=== PATIENT | female | born 1965 | race Caucasian/White ===

== ENCOUNTER 2016-10-01 16:19 | Observation (INO) ==
--- NOTE | 2016-10-01 17:04 | Emergency Department Note ---
Disposition Clinical Impression: Abnormal CT lung screening Disposition: Admitted As Inpatient URI/Sore Throat HPI - General Stated Complaint: possible TB Time Seen by Provider: 10/01/16 16:31 Source: patient Limitations: no limitations Nursing Notes Reviewed: Yes Vital Signs Reviewed: Yes - History of Present Illness HPI Narrative: He is a 51-year-old female with a history of pulmonary nodules is here for an abnormal CT scan. 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 She states she has been tested in the past had a positive PPD but had a negative chest x-ray. He denies any recent travel out of the country or exposure to any persons known with tuberculosis. She is in her baseline state of health and has no acute complaints Associated symptoms: Reports: denies other symptoms Treatments prior to arrival: none - Related Data Home Medications Medication Instructions Recorded Confirmed Aclidinium [place] [[place]orza 400 mcg IH 10/13/15 Pressair] Albuterol Sulfate [Albuterol 8.5 gm IH 10/13/15 Inhaler] Albuterol Sulfate [Ventolin Hfa] 10/13/15 Amlodipine [Norvasc] 10/13/15 Cyclobenzaprine [Flexeril] 10/13/15 Dicyclomine [Bentyl] 10/13/15 Divalproex (24 HR) [Depakote ER 10/13/15 (24 HR)] Fluticasone Propionate [Flovent 10/13/15 Diskus] Folic Acid [Folic Acid] 10/13/15 Gabapentin [Gralise] 10/13/15 Hydroxychloroquine [Plaquenuil] 10/13/15 LORazepam [Ativan] 10/13/15 Lisinopril [Zestril] 10/13/15 Loratadine [Claritin] 10/13/15 Methotrexate [Otrexup] 10/13/15 Mometasone/Formoterol [Dulera 200 13 gm IH 10/13/15 Mcg/5 Mcg Inhaler] Nicotine Patch [Nicoderm] 10/13/15 Omeprazole [PriLOSEC] 10/13/15 Previous Rx's Medication Instructions Recorded PredniSONE 20 mg PO DAILY #3 tablet 07/01/15 Meloxicam [Mobic] 15 mg PO DAILY #20 tab 06/25/16 Allergies Allergy/AdvReac Type Severity Reaction Status Date / Time No Known Allergies Allergy Verified 07/25/15 16:33 All systems ED: reviewed and negative except as stated. Constitutional: Denies: fever, chills, weakness, weight change, night sweats Cardiovascular: Denies: chest pain, palpitations URI PMH - Past Medical History Medical history: Reports: asthma, COPD, hypertension, RA, renal disease Psychiatric history: Reports: anxiety - Social History Smoking Status: Current every day smoker Alcohol use: Reports: none Drug use: Reports: none Physical Exam - General Limitations: no limitations General appearance: alert - Head Head exam: atraumatic, normocephalic, normal inspection - Eye Eye exam: Present: normal appearance, PERRL, EOMI - Expanded Eye Exam Pupils: Left: reactive - ENT ENT exam: normal exam, normal oropharynx, mucous membranes moist - Expanded ENT Exam External ear exam: Present: normal external inspection Mouth exam: Present: normal external inspection Teeth exam: Present: normal inspection Throat exam: Present: normal inspection - Neck Neck exam: Present: normal inspection, full ROM, trachea midline - Chest Chest inspection: Present: normal inspection, symmetric chest wall rise - Respiratory Respiratory exam: Present: prolonged expiratory phase. Absent: respiratory distress, wheezes, accessory muscle use - Cardiovascular Cardiovascular exam: Present: regular rate, normal rhythm, normal heart sounds - Abdominal Exam Abdominal exam: Present: soft, Non-Tender. Absent: tenderness, distention, guarding, rebound, rigidity - Extremities Exam Extremities exam: Present: normal inspection, full ROM. Absent: tenderness, pedal edema - Expanded Upper Extremity Exam Shoulder exam: Present: normal inspection, full ROM Arm exam: Present: normal inspection, full ROM Elbow exam: Present: normal inspection, full ROM Forearm/Wrist exam: Present: normal inspection, full ROM Hand exam: Present: normal inspection, full ROM Vascular exam: Normal: capillary refill, radial pulse - Expanded Lower Extremity Exam Hip/Pelvis exam: Present: normal inspection, full ROM Upper leg exam: Present: normal inspection, full ROM Knee exam: Present: normal inspection, full ROM Lower leg exam: Present: normal inspection, full ROM Ankle exam: Present: normal inspection, full ROM Foot/toe exam: Present: normal inspection, full ROM Neurovascular/Tendon exam: Absent: motor deficit, sensory deficit, tendon deficit - Back Exam Back exam: Present: normal inspection, full ROM. Absent: tenderness - Neurological Exam Neurological exam: Present: alert, oriented X3 - Expanded Neurological Exam Patient oriented to: Present: person, place, time Coma Scale Eye Opening: Spontaneous Coma Scale Motor Response: Obeys Commands Coma Scale Verbal Response: Oriented Coma Scale Total: 15 - Psychiatric Psychiatric exam: Present: normal affect, normal mood - Skin Skin exam: Present: warm, dry, intact, normal color Course Vital Signs Temperature 98.0 F 10/01/16 16:39 Pulse Rate 90 10/01/16 16:39 Respiratory Rate 18 10/01/16 16:39 Blood Pressure 104/69 10/01/16 16:39 O2 Sat by Pulse Oximetry 98 10/01/16 16:39 Temperature 98.0 F 10/01/16 16:39 Pulse Rate 90 10/01/16 16:39 Respiratory Rate 18 10/01/16 16:39 Blood Pressure 104/69 10/01/16 16:39 O2 Sat by Pulse Oximetry 98 10/01/16 16:39 Oxygen Delivery Oxygen Delivery Room Air Upper Respiratory Infection - Differential Diagnosis Differential Diagnosis: Likely: upper respiratory infection, otitis media, sinusitis, other viral infection, pharyngitis - Medical Records Medical records reviewed: Yes I reviewed the patient's medical records. - Lab Data Lab results reviewed: Yes I reviewed the patient's lab results. Result diagrams: 10/01/16 17:18 10/01/16 17:18 Lab Results 10/01/16 10/01/16 10/01/16 Range/Units 17:18 17:18 17:18 WBC 4.2 L (4.3-11.1) K/mcL RBC 3.57 L (3.82-4.97) M/mcL Hgb 10.3 L (11.5-15.4) g/dL Hct 31.9 L (35.3-44.9) % MCV 89.4 (83.0-100.0) fL MCH 28.9 (28.0-33.3) pg MCHC 32.3 (31.6-35.5) g/dL RDW 16.2 H (11.5-14.5) % Plt Count 303 (140-400) K/mcL MPV 8.4 L (9.4-12.4) fL Immature Gran % 1.0 (0-4) % Seg Neutrophils % 69.5 % Lymphocytes % 21.6 % Monocytes % 6.7 % Eosinophils % 1.0 % Basophils % 0.2 % Neutrophils # 2.9 (1.6-8.9) K/mcL Lymphocytes # 0.9 (0.6-4.6) K/mcL Monocytes # 0.3 (0.0-1.3) K/mcL Eosinophils # 0.0 (0.0-0.6) K/mcL Basophils # 0.0 (0.0-0.2) K/mcL PT 12.2 H (9.4-12.1) Seconds INR 1.1 APTT 30.5 (26.0-36.0) Seconds Sodium 131 L (136-145) mEq/L Potassium 4.4 (3.5-4.5) mEq/L Chloride 95 L (98-109) mEq/L Carbon Dioxide 27 (19-29) mEq/L BUN 8 (7-20) mg/dL Creatinine 1.13 H (0.57-1.11) mg/dL Est GFR ( Amer) > 60 (> 60) Est GFR (Non-Af Amer) 50 L (> 60) BUN/Creatinine Ratio 7 (6-26) Glucose 89 (70-99) mg/dL Calculated Osmolality 270 L (280-300) Lactic Acid (0.5-2.2) mmol/L Calcium 8.9 (8.6-10.8) mg/dL Phosphorus 4.2 (2.3-4.7) mg/dL Magnesium 1.9 (1.6-2.6) mg/dL Total Bilirubin 0.3 (0.2-1.2) mg/dL Direct Bilirubin 0.1 (0.0-0.5) mg/dL Indirect Bilirubin 0.2 (0.0-1.2) mg/dL AST 15 (5-34) Units/L ALT 9 (0-55) Units/L Alkaline Phosphatase 68 (38-126) Units/L Serum Total Protein 6.9 (6.0-8.3) g/dL Albumin 2.9 L (3.5-5.0) g/dL Globulin 4.0 H (2.4-3.5) g/dL Albumin/Globulin Ratio 0.7 L (1.1-2.2) 10/01/16 Range/Units 17:18 WBC (4.3-11.1) K/mcL RBC (3.82-4.97) M/mcL Hgb (11.5-15.4) g/dL Hct (35.3-44.9) % MCV (83.0-100.0) fL MCH (28.0-33.3) pg MCHC (31.6-35.5) g/dL RDW (11.5-14.5) % Plt Count (140-400) K/mcL MPV (9.4-12.4) fL Immature Gran % (0-4) % Seg Neutrophils % % Lymphocytes % % Monocytes % % Eosinophils % % Basophils % % Neutrophils # (1.6-8.9) K/mcL Lymphocytes # (0.6-4.6) K/mcL Monocytes # (0.0-1.3) K/mcL Eosinophils # (0.0-0.6) K/mcL Basophils # (0.0-0.2) K/mcL PT (9.4-12.1) Seconds INR APTT (26.0-36.0) Seconds Sodium (136-145) mEq/L Potassium (3.5-4.5) mEq/L Chloride (98-109) mEq/L Carbon Dioxide (19-29) mEq/L BUN (7-20) mg/dL Creatinine (0.57-1.11) mg/dL Est GFR ( Amer) (> 60) Est GFR (Non-Af Amer) (> 60) BUN/Creatinine Ratio (6-26) Glucose (70-99) mg/dL Calculated Osmolality (280-300) Lactic Acid 1.1 (0.5-2.2) mmol/L Calcium (8.6-10.8) mg/dL Phosphorus (2.3-4.7) mg/dL Magnesium (1.6-2.6) mg/dL Total Bilirubin (0.2-1.2) mg/dL Direct Bilirubin (0.0-0.5) mg/dL Indirect Bilirubin (0.0-1.2) mg/dL AST (5-34) Units/L ALT (0-55) Units/L Alkaline Phosphatase (38-126) Units/L Serum Total Protein (6.0-8.3) g/dL Albumin (3.5-5.0) g/dL Globulin (2.4-3.5) g/dL Albumin/Globulin Ratio (1.1-2.2) - Radiology Data Radiology results reviewed: Yes I reviewed the patient's radiology results.
[2016-10-01 17:30] LABS: Basophils % 0.2 %; Hematocrit 31.9 % (35.3-44.9); Hemoglobin 10.3 g/dL (11.5-15.4); Lymphocytes # 0.9 K/mcL (0.6-4.6); Lymphocytes % 21.6 %; Mean Corpuscular HGB Conc 32.3 g/dL (31.6-35.5); Mean Corpuscular Hemoglobin 28.9 pg (28.0-33.3); Mean Corpuscular Volume 89.4 fL (83.0-100.0); Mean Platelet Volume 8.4 fL (9.4-12.4); Monocytes # 0.3 K/mcL (0.0-1.3); Monocytes % 6.7 %; Neutrophils # 2.9 K/mcL (1.6-8.9); Platelet Count 303 K/mcL (140-400); Red Blood Count 3.57 M/mcL (3.82-4.97); Red Cell Distribution Width 16.2 % (11.5-14.5); Segmented Neutrophils % 69.5 %
[2016-10-01 17:36] LABS: INR 1.1; Prothrombin Time 12.2 Seconds (9.4-12.1)
[2016-10-01 17:38] LABS: Activated Partial Thrombo Time 30.5 Seconds (26.0-36.0)
[2016-10-01 17:45] LABS: Alanine Aminotransferase 9 Units/L (0-55); Albumin 2.9 g/dL (3.5-5.0); Albumin/Globulin Ratio 0.7 (1.1-2.2); Alkaline Phosphatase 68 Units/L (38-126); Aspartate Amino Transferase 15 Units/L (5-34); BUN/Creatinine Ratio 7 (6-26); Bilirubin,Direct 0.1 mg/dL (0.0-0.5); Bilirubin,Indirect 0.2 mg/dL (0.0-1.2); Bilirubin,Total 0.3 mg/dL (0.2-1.2); Blood Urea Nitrogen 8 mg/dL (7-20); Calcium 8.9 mg/dL (8.6-10.8); Carbon Dioxide 27 mEq/L (19-29); Chloride 95 mEq/L (98-109); Glucose 89 mg/dL (70-99); Magnesium 1.9 mg/dL (1.6-2.6); Osmolality,Calculated 270 (280-300); Phosphorous 4.2 mg/dL (2.3-4.7); Potassium 4.4 mEq/L (3.5-4.5); Sodium 131 mEq/L (136-145); Total Protein 6.9 g/dL (6.0-8.3); eGFR For African Americans > 60 (> 60); eGFR For Non-African Americans 50 (> 60)
[2016-10-01 18:49] LABS: Adenovirus Not Detected (Not Detect); Coronavirus 229E Not Detected (Not Detect); Coronavirus HKU1 Not Detected (Not Detect); Coronavirus NL63 Not Detected (Not Detect)
[2016-10-01 18:50] LABS: Bordetella Pertussis Not Detected (Not Detect); Chlamydophila pneumoniae Not Detected (Not Detect); Coronavirus OC43 ***DETECTED*** (Not Detect); Human Metapneumovirus Not Detected (Not Detect); Human Rhinovirus/Enterovirus Not Detected (Not Detect); Influenza A Subtype 2009 H1 Not Detected (Not Detect); Influenza A Untypeable Not Detected (Not Detect); Influenza B Not Detected (Not Detect); Mycoplasma pneumoniae Not Detected (Not Detect); Parainfluenza Virus 1 Not Detected (Not Detect); Parainfluenza Virus 2 Not Detected (Not Detect); Parainfluenza Virus 3 Not Detected (Not Detect); Parainfluenza Virus 4 Not Detected (Not Detect); Respiratory Syncytial Virus Not Detected (Not Detect)
--- NOTE | 2016-10-02 01:02 | Internal Med History&Physical ---
Date of Encounter: 10/02/16 Time of Encounter: 00:59 Assessment and Plan (1) COPD (chronic obstructive pulmonary disease) Current visit: Yes Status: Acute Stable no active wheezing. Qualifiers: Qualified Code(s): J44.9 - Chronic obstructive pulmonary disease, unspecified (2) Rheumatoid arthritis Current visit: Yes Status: Acute I will hold immunosuppressive medication except for steroids to avoid risk of adrenal insufficiency especially given low suspicion for miliary TB Qualifiers: Qualified Code(s): M06.9 - Rheumatoid arthritis, unspecified (3) Abnormal CT lung screening Current visit: Yes Status: Acute 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. However there is little suspicion for that. Patient is not ill appearing. Patient shows no symptoms or signs of TB. We will check quanteferon gold. Check sputum for Smear and culture checks 3 sputum samples. She would have bronchoscopy in the morning. will be kept NPO after midnight. Internal Medicine - H&P: HPI Chief complaint: abnormal CT findings History of present illness: Ms. Garcia is a 51 year old female on immunosuppressive medications including methotrexate plaque [place] and prednisone 5 mg daily for rheumatoid arthritis, history of COPD was sent or emergency room after outpatient CT scan showed concern for miliary TB. Patient is being admitted to hospital for bronchoscopy and deep cultures in the morning. Patient denies any fevers or chills. No increase in her baseline sputum production. No weight loss. No night sweats. No hemoptysis. Appetite is good. No exposure to people with suspected TB. She did have a positive to between test long time ago however an x-ray then showed no lung disease. Patient so smokes about 6 cigarettes a day. Past Med Surg Social Fam HX - Past Medical History Medical history: asthma, COPD, hypertension, RA, renal disease Psychiatric history: anxiety - Social History Smoking Status: Current every day smoker Packs per day: 1/2 Smokeless Tobacco Status: No Alcohol use: none Drug use: none - Family History Mother Hx Family Respiratory Disorders: Yes (bronchial mass collapsed lung) Hx Family GI Disorders: Yes (ulcers) Father Hx Family Endocrine Disorder: Yes (Diabetes) Hx Family Neurologic Disorders: Yes (parkinson's disease) Hx Family Medical Disorders: (htn, TIA, Pacemaker) Internal Medicine - H&P: Meds Albuterol Sulfate [Ventolin Hfa] 2 puff IH Q4H PRN 10/13/15 [History] Amlodipine [Norvasc] 5 mg PO DAILY 10/13/15 [History] Cyclobenzaprine [Flexeril] 10 mg PO BID 10/13/15 [History] Dicyclomine [Bentyl] 10 mg PO TID 10/13/15 [History] Divalproex (24 HR) [Depakote ER (24 HR)] 750 mg PO HS 10/13/15 [History] Folic Acid [Folic Acid] 5 mg PO DAILY 10/13/15 [History] Hydroxychloroquine [Plaquenuil] 300 mg PO DAILY 10/13/15 [History] LORazepam [Ativan] 0.5 mg PO BID 10/13/15 [History] Lisinopril [Zestril] 10 mg PO DAILY 10/13/15 [History] Loratadine [Claritin] 10 mg PO DAILY 10/13/15 [History] Methotrexate [Otrexup] 12.5 mg PO QWEEK 10/13/15 [History] Nicotine Patch [Nicoderm] 7 mg TD DAILY 10/13/15 [History] Omeprazole [PriLOSEC] 20 mg PO DAILY 10/13/15 [History] Albuterol Neb [AccuNeb] 0.63 mg IH QID 10/01/16 [History] Ferrous Sulfate 325 mg PO DAILY 10/01/16 [History] Fluticasone Propionate Nasal [Flonase] 50 mcg NS DAILY 10/01/16 [History] Gabapentin [Neurontin] 800 mg PO TID 10/01/16 [History] Oxygen 2 l NS HS 10/01/16 [History] PredniSONE 5 mg PO DAILY 10/01/16 [History] Propylene Glycol/Peg 400 [Systane 0.3-0.4% Eye Drops] 2 drop OP PRN PRN [History] Quetiapine Fumarate [Seroquel] 50 mg PO HS 10/01/16 [History] Umeclidinium Brm/Vilanterol Tr [Anoro Ellipta 62.5-25 Mcg INH] 1 each IH DAILY 10/01/16 [History] Allergies No Known Allergies Allergy (Verified 07/25/15 16:33) All Systems PM: A 10-system review of systems was performed and is negative for pertinent findings except as documented above in the HPI. Review of systems: 10 point ROS is negative etc. HPI. - Constitutional Vitals: Temp Pulse Resp BP Pulse Ox 98.0 F 77 14 122/78 98 10/01/16 22:06 10/01/16 22:06 10/01/16 22:06 10/01/16 22:06 10/01/16 22:06 Exam: Gen.: patient is alert and oriented times 3 not distress Cardiac: normal S1 S2 no additional sound or murmur chest: Clear to auscultation abdomen: soft non tender non distended extremity: no swelling Neuro: No neuro deficit Internal Med - H&P Results - Labs CBC & Chem 7: 10/01/16 17:18 10/01/16 17:18
[2016-10-02] MEDS ORDERED: 0.9 % Sodium Chloride 1,000 ML IVC SCH (01:15)
[2016-10-02 05:14] LABS: BUN/Creatinine Ratio 8 (6-26); Blood Urea Nitrogen 7 mg/dL (7-20); C-Reactive Protein 41 mg/L (Less than 5); Calcium 8.6 mg/dL (8.6-10.8); Carbon Dioxide 27 mEq/L (19-29); Chloride 97 mEq/L (98-109); Glucose 86 mg/dL (70-99); Osmolality,Calculated 273 (280-300); Potassium 4.1 mEq/L (3.5-4.5); Sodium 133 mEq/L (136-145); eGFR For African Americans > 60 (> 60); eGFR For Non-African Americans > 60 (> 60)
[2016-10-02] MEDS: Albuterol Neb 0.63 MG/3 ML VIAL IH SCH ×5 (05:57→22:46)
[2016-10-02] MEDS: Folic Acid 1 MG TABLET PO SCH (08:45)
[2016-10-02] MEDS: Fluticasone Propionate Nasal 50 MCG/SPRAY BOTTLE NS SCH (08:46)
[2016-10-02] MEDS: *HR* LORazepam 0.5 MG TABLET PO SCH ×2 (08:46→20:53)
[2016-10-02] MEDS: amLODIPine 5 MG TABLET PO SCH (08:46)
[2016-10-02] MEDS: predniSONE 5 MG TABLET PO SCH (08:46)
--- NOTE | 2016-10-02 08:51 | Pulmonology Consult Note ---
Date of Encounter: 10/02/16 Time of Encounter: 08:50 Assessment and Plan (1) Pulmonary cavitary lesion Current Visit: Yes Status: Acute Suspect this is related to underlying rheumatoid arthritis and all findings that have been demonstrated on CT scan are compatible with underlying diagnosis of rheumatoid arthritis including nodular bronchiolitis and cavitary lesions possibly complicated by CVID. With that stated patient is at high risk for either superimposed infection or chronic infection including fungal atypical mycobacterium typical mycobacterium cryptococcus etc. cannot fully exclude the possibility of Mycobacterium tuberculosis at this time although I feel this as very low probability. ANCA vasculitis also consideration but again less likely Plan for bronchoscopy today is his diagnostic bronchoscopy with bronchoalveolar lavage and brushings. I have sent some basic serologies including fungal and medial complement fixation levels beta galactomannan, histo antigen and HIV ANCA complement levels HIV and cryptococcal antigen Okay to remain in isolation until results of bronchoscopy including AFB are back A bronchoscopy is recommended. The procedure , risks, benefits, complications, and expected outcomes have been reviewed. Benefits of diagnosis, as well as risks to include bleeding, infection, pneumothorax which may require surgical intervention, and in a small population. The patient is aware that sometimes test is nondiagnostic. Discussed with patient and agrees to proceed. (2) COPD (chronic obstructive pulmonary disease) Current Visit: Yes Status: Acute Chronic COPD without acute exacerbation respiratory infectious panel was positive for coronavirus does not appear that she has an acute exacerbation however perhaps she is recovering from this. I would continue her metered-dose inhalers and bronchodilators as needed Encouraged tobacco cessation completely Qualifiers: Qualified Code(s): J44.9 - Chronic obstructive pulmonary disease, unspecified (3) Rheumatoid arthritis Current Visit: Yes Status: Acute She is switching rheumatologists to Dr. Chioma hopkins at [facility] and continue immunosuppression follow-up as outpatient Qualifiers: Qualified Code(s): M06.9 - Rheumatoid arthritis, unspecified History of Present Illness Consult date: 10/02/16 Requesting physician: Jory Rosales Reason for consult: abnormal CXR/CT Chief complaint: Cough History of present illness: This is a very pleasant 51-year-old woman who presented from home after she was told by her primary clinic office coordinator to go to emergency department for evaluation after she was found to have abnormalities on a routine outpatient CT scan of her thorax as part of ongoing evaluation. She has a history of advanced rheumatoid arthritis being treated with methotrexate, Plaquenil, and chronic low dose prednisone. The patient reports that she is at her baseline level of health she has a chronic productive cough that is related to tobacco use/COPD but denies any sort of fevers chills hemoptysis weight loss joint pains or outside of her usual new rash she is not traveled recently has not had any sick contacts. 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 She does have a history of an abnormal PPD in the past that did not have follow- up except for a chest x-ray she has never been incarcerated or been around people with active tuberculosis She is a current every day smoker of approximately 6 cigarettes has a history of underlying chronic obstructive pulmonary disease on inhaler therapy she started smoking in her early teens. Her CT scan is notable for bilateral Small cavitary lesions primarily in the upper lobes bilaterally she also has extensive pulmonary nodules and a central distribution throughout the lung no significant lymphadenopathy was appreciated. Past Med Surg Social Fam HX - Past Medical History Medical history: asthma, COPD, hypertension, RA, renal disease Psychiatric history: anxiety - Social History Smoking Status: Current every day smoker Packs per day: 1/2 Smokeless Tobacco Status: No Alcohol use: none Drug use: none - Family History Mother Hx Family Respiratory Disorders: Yes (bronchial mass collapsed lung) Hx Family GI Disorders: Yes (ulcers) Father Hx Family Endocrine Disorder: Yes (Diabetes) Hx Family Neurologic Disorders: Yes (parkinson's disease) Hx Family Medical Disorders: (htn, TIA, Pacemaker) Medications and Allergies Albuterol Sulfate [Ventolin Hfa] 2 puff IH Q4H PRN 10/13/15 [History] Amlodipine [Norvasc] 5 mg PO DAILY 10/13/15 [History] Cyclobenzaprine [Flexeril] 10 mg PO BID 10/13/15 [History] Dicyclomine [Bentyl] 10 mg PO TID 10/13/15 [History] Divalproex (24 HR) [Depakote ER (24 HR)] 750 mg PO HS 10/13/15 [History] Folic Acid [Folic Acid] 5 mg PO DAILY 10/13/15 [History] Hydroxychloroquine [Plaquenuil] 300 mg PO DAILY 10/13/15 [History] LORazepam [Ativan] 0.5 mg PO BID 10/13/15 [History] Lisinopril [Zestril] 10 mg PO DAILY 10/13/15 [History] Loratadine [Claritin] 10 mg PO DAILY 10/13/15 [History] Methotrexate [Otrexup] 12.5 mg PO QWEEK 10/13/15 [History] Nicotine Patch [Nicoderm] 7 mg TD DAILY 10/13/15 [History] Omeprazole [PriLOSEC] 20 mg PO DAILY 10/13/15 [History] Albuterol Neb [AccuNeb] 0.63 mg IH QID 10/01/16 [History] Ferrous Sulfate 325 mg PO DAILY 10/01/16 [History] Fluticasone Propionate Nasal [Flonase] 50 mcg NS DAILY 10/01/16 [History] Gabapentin [Neurontin] 800 mg PO TID 10/01/16 [History] Oxygen 2 l NS HS 10/01/16 [History] PredniSONE 5 mg PO DAILY 10/01/16 [History] Propylene Glycol/Peg 400 [Systane 0.3-0.4% Eye Drops] 2 drop OP PRN PRN [History] Quetiapine Fumarate [Seroquel] 50 mg PO HS 10/01/16 [History] Umeclidinium Brm/Vilanterol Tr [Anoro Ellipta 62.5-25 Mcg INH] 1 each IH DAILY 10/01/16 [History] Allergies No Known Allergies Allergy (Verified 07/25/15 16:33) All Systems: A 10-system review of systems was performed and is negative for pertinent findings except as documented above in the HPI. Physical Examination Vital Signs: Vital Signs, Last 4 Hours Temp Pulse Resp BP Pulse Ox 10/02/16 07:02 98.3 F 88 16 117/76 100 10/02/16 05:02 98.3 F 88 14 111/65 96 General appearance: no acute distress Eyes: nonicteric ENT: oropharynx moist Neck: supple Effort: normal Auscultation: bilateral: clear Cardiovascular: regular rate and rhythm Gastrointestinal: normoactive bowel sounds Integumentary: normal Extremities: no cyanosis, no edema, no clubbing, pink and warm, no ischemia or petechiae Musculoskeletal: other (Chronic ulnar deviation) normal mental status, non-focal exam mood appropriate Results - Laboratory Findings CBC and BMP: 10/01/16 17:18 10/02/16 03:58 PT/INR, D-dimer PT 12.2 Seconds (9.4-12.1) H 10/01/16 17:18 Abnormal lab findings: Abnormal lab results WBC 4.2 K/mcL (4.3-11.1) L 10/01/16 17:18 RBC 3.57 M/mcL (3.82-4.97) L 10/01/16 17:18 Hgb 10.3 g/dL (11.5-15.4) L 10/01/16 17:18 Hct 31.9 % (35.3-44.9) L 10/01/16 17:18 RDW 16.2 % (11.5-14.5) H 10/01/16 17:18 MPV 8.4 fL (9.4-12.4) L 10/01/16 17:18 ESR 43 mm/hr (0-15) H 10/02/16 03:59 PT 12.2 Seconds (9.4-12.1) H 10/01/16 17:18 Sodium 133 mEq/L (136-145) L 10/02/16 03:58 Chloride 97 mEq/L (98-109) L 10/02/16 03:58 Calculated Osmolality 273 (280-300) L 10/02/16 03:58 C-Reactive Protein 41 mg/L (Less than 5) H 10/02/16 03:58 Albumin 2.9 g/dL (3.5-5.0) L 10/01/16 17:18 Globulin 4.0 g/dL (2.4-3.5) H 10/01/16 17:18 Albumin/Globulin Ratio 0.7 (1.1-2.2) L 10/01/16 17:18 Coronavirus OC43 (PCR) DETECTED (Not Detect) A 10/01/16 17:30 - Diagnostic Findings Chest x-ray: report reviewed, image reviewed CT scan - chest: report reviewed, image reviewed - Clinical Findings Intake & Output: Intake & Output 10/01/16 10/02/16 10/02/16 23:59 07:59 15:59 Weight 49.532 kg Consult Discharge Plan - Plan Referrals: Melany Arizmendi CNP [Primary Care Provider] -
[2016-10-02] MEDS ORDERED: *HR* Midazolam HCl 5 MG/5 ML VIAL IVP PRN (08:54)
[2016-10-02] MEDS ORDERED: Lidocaine Viscous Oral Soln 15 ML SOLUTION MM ONE (08:54)
[2016-10-02] MEDS ORDERED: *HR* EPINEPHrine 1 MG/10 ML SYRINGE INTRATRACH PRN (08:54)
[2016-10-02] MEDS ORDERED: *HR* FentaNYL (PF) 100 MCG/2 ML VIAL IVP PRN (08:54)
[2016-10-02] MEDS ORDERED: Tetracaine/Benzocaine/Butamben 200MG/SPRAY (100SPY/BOT) MM ONE (08:54)
--- NOTE | 2016-10-02 08:54 | Pre-Sedation Evaluation ---
Pre-sedation evaluation - Pre-sedation checklist Date of procedure: 10/02/16 Procedure: bronchoscopy Recent Vitals: Last Vital Signs Temp 98.3 F 10/02/16 07:02 Pulse 88 10/02/16 07:02 Resp 16 10/02/16 07:02 BP 117/76 10/02/16 07:02 Pulse Ox 100 10/02/16 07:02 H&P (including ROS) documented in medical record: Yes Previous reaction to sedatives/anesthetics: No Dietary Status: NPO after Midnight Airway Assessment: Patient can open mouth completely, TMJ function normal Dentition: No loose teeth or bridges Possible difficult airway: No ASA Classification *see protocol: CLASS III-Severe systemic disease Plan of Care: Pt appropriate candidate for procedure/moderate/conscious sedation , Risks/benefits of procedure/sedation discussed w/ patient/family
[2016-10-02] MEDS ORDERED: Ringers Solution, Lactated 1,000 ML IVC SCH (09:00)
[2016-10-02] MEDS ORDERED: *HR* Midazolam HCl 5 MG/5 ML VIAL IVP ONE (14:24)
[2016-10-02] MEDS ORDERED: Lidocaine Viscous Oral Soln 15 ML SOLUTION ONE (14:25)
[2016-10-02] MEDS ORDERED: *HR* FentaNYL (PF) 100 MCG/2 ML VIAL ONE (14:25)
[2016-10-02] MEDS ORDERED: Systane 0.3-0.4% Eye Drops OP PRN (16:29)
--- NOTE | 2016-10-02 16:36 | Internal Med Progress Note ---
Date of Encounter: 10/02/16 Time of Encounter: 11:15 - Assessment and plan (1) HTN (hypertension) Current Visit: Yes Status: Chronic Assessment and plan: Continue meds Qualifiers: Hypertension type: essential hypertension Qualified Code(s): I10 - Essential (primary) hypertension (2) Mood disorder Current Visit: Yes Status: Chronic Assessment and plan: Resume home meds, patient has been taking them for 2 years (3) COPD (chronic obstructive pulmonary disease) Current Visit: Yes Status: Chronic Assessment and plan: Chronic COPD without acute exacerbation respiratory infectious panel was positive for coronavirus Continue home MDIs Qualifiers: COPD type: unspecified COPD Qualified Code(s): J44.9 - Chronic obstructive pulmonary disease, unspecified (4) Pulmonary cavitary lesion Current Visit: Yes Status: Acute Assessment and plan: Per pulmonary, related to underlying rheumatoid arthritis However, cannot rule out superimposed infection or chronic infection including fungal atypical mycobacterium typical mycobacterium cryptococcus, ANCA vasculitis Follow BAL microbiology Pulmonary eval appreciated (5) Rheumatoid arthritis Current Visit: Yes Status: Acute Qualifiers: Qualified Code(s): M06.9 - Rheumatoid arthritis, unspecified (6) Lumbar radicular pain Current Visit: Yes Status: Chronic - Subjective Interval history: 51 Y/O F with Chronic COPD, Rheumatoid arthritis on chronic prednisone therapy and Plaquenil, HTN, Mood disorder, Tobacco abuse Patient is admitted to observation due to Chest CT scan findings of cavitary lesions She has since been placed on airborne isolation Pulmonary has reviewed and plan a bronchoscopy today Seen at bedside with family, denies new complains - Constitutional Vitals: Temp Pulse Resp BP Pulse Ox 98.5 F 88 14 122/68 99 10/02/16 15:10 10/02/16 15:45 10/02/16 15:45 10/02/16 15:45 10/02/16 15:45 General appearance: Present: cachectic, A&O X 3, pleasant, no acute distress - Head Head exam: Present: atraumatic, normocephalic - Eye Eye exam: Present: PERRL, conjuntiva pink, sclera anicteric Pupils: Present: PERRL - Neck Neck exam general surgery: Present: supple, trachea midline. Absent: lymphadenopathy - Respiratory Respiratory exam: Present: CTAB. Absent: accessory muscle use, rales, rhonchi, wheezes - Cardiovascular Cardiovascular exam: Present: RRR, +S1, +S2. Absent: diastolic murmur, gallop, rubs, systolic murmur - GI/Abdominal GI/Abdominal exam: Present: normal bowel sounds, soft, no peritoneal signs. Absent: distended, tenderness - Extremities Exam Extremities exam: Present: warm, radial pulses palpable and symetrical. Absent : calf tenderness, cyanotic, pedal edema - Neurological Exam Neurological exam: Present: CN II-XII intact, oriented X3, no focal deficits. Absent: pronater drift, facial droop, speech deficit Internal Medicine: Result - Labs CBC & Chem 7: 10/01/16 17:18 10/02/16 03:58 Labs: BMP 10/02/16 03:58 Sodium 133 L Potassium 4.1 Chloride 97 L Carbon Dioxide 27 BUN 7 Creatinine 0.84 Glucose 86 Calcium 8.6 - ABG Interpretation ABG results: PT/INR, D-dimer PT 12.2 Seconds (9.4-12.1) H 10/01/16 17:18 Consult Discharge Plan - Plan Referrals: Melany Arizmendi CNP [Primary Care Provider] -
[2016-10-02 16:50] LABS: Source of Body Fluid RML BAL
[2016-10-02 17:54] LABS: Appearance of Body Fluid Slightly Hazy (Clear); Volume of Body Fluid 15 mL
[2016-10-02] MEDS: Gabapentin 400 MG CAPSULE PO SCH (20:53)
[2016-10-02] MEDS ORDERED: Divalproex (24 HR) 250 MG TABLET PO SCH (21:00)
[2016-10-03] MEDS: Albuterol Neb 0.63 MG/3 ML VIAL IH SCH ×2 (03:48→11:24)
[2016-10-03 08:07] LABS: Basophils % 0.2 %; Eosinophils # 0.1 K/mcL (0.0-0.6); Eosinophils % 1.6 %; Hematocrit 33.6 % (35.3-44.9); Hemoglobin 10.8 g/dL (11.5-15.4); Immature Granulocytes % 0.4 % (0-4); Lymphocytes # 1.3 K/mcL (0.6-4.6); Lymphocytes % 28.9 %; Mean Corpuscular HGB Conc 32.1 g/dL (31.6-35.5); Mean Corpuscular Hemoglobin 28.9 pg (28.0-33.3); Mean Corpuscular Volume 89.8 fL (83.0-100.0); Mean Platelet Volume 8.3 fL (9.4-12.4); Monocytes # 0.5 K/mcL (0.0-1.3); Monocytes % 10.1 %; Neutrophils # 2.6 K/mcL (1.6-8.9); Platelet Count 267 K/mcL (140-400); Red Blood Count 3.74 M/mcL (3.82-4.97); Red Cell Distribution Width 16.1 % (11.5-14.5); Segmented Neutrophils % 58.8 %
[2016-10-03] MEDS: *HR* LORazepam 0.5 MG TABLET PO SCH (08:08)
[2016-10-03] MEDS: amLODIPine 5 MG TABLET PO SCH (08:08)
[2016-10-03] MEDS: Gabapentin 400 MG CAPSULE PO SCH (08:08)
[2016-10-03] MEDS: Fluticasone Propionate Nasal 50 MCG/SPRAY BOTTLE NS SCH (08:08)
[2016-10-03] MEDS: Folic Acid 1 MG TABLET PO SCH (08:08)
[2016-10-03] MEDS: predniSONE 5 MG TABLET PO SCH (08:08)
[2016-10-03 08:14] LABS: BUN/Creatinine Ratio 7 (6-26); Blood Urea Nitrogen 6 mg/dL (7-20); Carbon Dioxide 31 mEq/L (19-29); Chloride 93 mEq/L (98-109); Glucose 68 mg/dL (70-99); Osmolality,Calculated 270 (280-300); Potassium 3.9 mEq/L (3.5-4.5); Sodium 132 mEq/L (136-145); eGFR For African Americans > 60 (> 60); eGFR For Non-African Americans > 60 (> 60)
[2016-10-03] MEDS ORDERED: Anoro Ellipta 62.5-2 IH SCH (09:00)
[2016-10-03] MEDS ORDERED: Nicotine 7 MG PATCH.TD24 TD SCH (09:00)
[2016-10-03 11:23] VITALS: BP 94/54
--- NOTE | 2016-10-03 11:28 | Discharge Summary ---
Date of Encounter: 10/03/16 Time of Encounter: 11:00 - Discharge Diagnosis (1) HTN (hypertension) Priority: Secondary Status: Chronic Qualifiers: Hypertension type: essential hypertension Qualified Code(s): I10 - Essential (primary) hypertension (2) Mood disorder Priority: Secondary Status: Chronic (3) COPD (chronic obstructive pulmonary disease) Priority: Secondary Status: Chronic Qualifiers: COPD type: unspecified COPD Qualified Code(s): J44.9 - Chronic obstructive pulmonary disease, unspecified (4) Pulmonary cavitary lesion Priority: Primary Status: Acute (5) Rheumatoid arthritis Priority: Secondary Status: Chronic Qualifiers: Rheumatoid arthritis location: unspecified site Rheumatoid factor presence : unspecified presence Qualified Code(s): M06.9 - Rheumatoid arthritis, unspecified (6) Lumbar radicular pain Priority: Secondary Status: Chronic - Discharge Medications Home Medications: Albuterol Sulfate [Ventolin Hfa] 2 puff IH Q4H PRN 10/13/15 [History] Amlodipine [Norvasc] 5 mg PO DAILY 10/13/15 [History] Cyclobenzaprine [Flexeril] 10 mg PO BID 10/13/15 [History] Dicyclomine [Bentyl] 10 mg PO TID 10/13/15 [History] Divalproex (24 HR) [Depakote ER (24 HR)] 750 mg PO HS 10/13/15 [History] Folic Acid 5 mg PO DAILY 10/13/15 [History] Hydroxychloroquine [Plaquenuil] 300 mg PO DAILY 10/13/15 [History] LORazepam [Ativan] 0.5 mg PO BID 10/13/15 [History] Lisinopril [Zestril] 10 mg PO DAILY 10/13/15 [History] Loratadine [Claritin] 10 mg PO DAILY 10/13/15 [History] Methotrexate [Otrexup] 12.5 mg PO QWEEK 10/13/15 [History] Nicotine Patch [Nicoderm] 7 mg TD DAILY 10/13/15 [History] Omeprazole [PriLOSEC] 20 mg PO DAILY 10/13/15 [History] Albuterol Neb [AccuNeb] 0.63 mg IH QID 10/01/16 [History] Ferrous Sulfate 325 mg PO DAILY 10/01/16 [History] Fluticasone Propionate Nasal [Flonase] 50 mcg NS DAILY 10/01/16 [History] Gabapentin [Neurontin] 800 mg PO TID 10/01/16 [History] Oxygen 2 l NS HS 10/01/16 [History] PredniSONE 5 mg PO DAILY 10/01/16 [History] Propylene Glycol/Peg 400 [Systane 0.3-0.4% Eye Drops] 2 drop OP PRN PRN [History] Quetiapine Fumarate [Seroquel] 50 mg PO HS 10/01/16 [History] Umeclidinium Brm/Vilanterol Tr [Anoro Ellipta 62.5-25 Mcg INH] 1 each IH DAILY 10/01/16 [History] Allergies/Adverse Reactions: Allergies No Known Allergies Allergy (Verified 07/25/15 16:33) Date of admission: 10/01/16 18:53 Primary care physician: Melany Arizmendi Consults: 10/02/16 00:52 Consult to Pulmonology [CONS] Routine Consulting Provider: [facility] [place] Reason for Consult: supposed to have bronchoscopy because of 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 Call Completed: No Discharging clinician: Andrea Mcgraw Anticipated date of discharge: 10/03/16 - Patient Status Disposition: Home, Self-Care Condition: Good Functional capacity at discharge: independent ambulation Overall status at discharge: patient is back to baseline - Discharge Instructions Follow Up With: Melany Arizmendi CNP [Primary Care Provider] - Forms: ED Satisfaction Letter - Diet and Activity Activity: resume usual activities as tolerated Diet: advance to your usual diet Interval History: 51 Y/O F with Chronic COPD, Rheumatoid arthritis on chronic prednisone therapy and Plaquenil, HTN, Mood disorder, Tobacco abuse Patient is admitted to observation due to Chest CT scan findings of cavitary lesions Hospital course: Ms. Garcia is a 51 year old female She was admitted to observation for work up for cavitary lung lesions , with a history of immunosuppresant therapy for her Rheumatoid arthritis She was asymptomatic She is seen at bedside today, has no new complains She was reviewed by air pollution specialist and Per pulmonary lung lesions may be related to underlying rheumatoid arthritis Other differentials included superimposed infection or chronic infection including fungal atypical mycobacterium typical mycobacterium cryptococcus, ANCA vasculitis Patient had bronchoscopy on 10/02/16 , well tolerated with no adverse effects BAL was sent for rheumatic , vasculitis and mircobiology work up AFB stain was negative both in sputum and BAL Patient is safe to return home, to follow up with Pulmonary as oupatient Immunization is up to date per patient 3 minutes was spent on smoking cessation counselling Plan of care discussed, verbalized understanding Time spent discussing smoking cessation with patient: 3 to 10 minutes (3 mins, patient on NRT) - Time Spent with Patient Total time spent providing and/or coordinating discharge services: Less than 30 minutes - Constitutional Vitals: Temp Pulse Resp BP Pulse Ox 99.4 F 93 18 94/54 96 10/03/16 11:20 10/03/16 11:20 10/03/16 11:20 10/03/16 11:20 10/03/16 11:20 General appearance: Present: cachectic, A&O X 3, pleasant, no acute distress - Head Head exam: Present: atraumatic, normocephalic - Eye Eye exam: Present: PERRL, conjuntiva pink, sclera anicteric Pupils: Present: PERRL - Neck Neck exam general surgery: Present: supple, trachea midline. Absent: lymphadenopathy - Respiratory Respiratory exam: Present: CTAB. Absent: accessory muscle use, rales, rhonchi, wheezes - Cardiovascular Cardiovascular exam: Present: RRR, +S1, +S2. Absent: diastolic murmur, gallop, rubs, systolic murmur - GI/Abdominal GI/Abdominal exam: Present: normal bowel sounds, soft, no peritoneal signs. Absent: distended, tenderness - Extremities Exam Extremities exam: Present: warm, radial pulses palpable and symetrical. Absent : calf tenderness, cyanotic, pedal edema - Neurological Exam Neurological exam: Present: CN II-XII intact, oriented X3, no focal deficits. Absent: pronater drift, facial droop, speech deficit - Skin Skin exam: Present: dry, intact
--- NOTE | 2016-10-03 12:31 | Pulmonology Progress Note ---
Date of Encounter: 10/03/16 Time of Encounter: 12:29 Assessment and Plan (1) Pulmonary cavitary lesion Current Visit: Yes Status: Acute History of RHeum Arth. w/u pending. No AFB Ok for d/w with opt Pulm F/u (2) COPD (chronic obstructive pulmonary disease) Current Visit: Yes Status: Chronic cont MDIs smoking cessation Qualifiers: COPD type: unspecified COPD Qualified Code(s): J44.9 - Chronic obstructive pulmonary disease, unspecified (3) Rheumatoid arthritis Current Visit: Yes Status: Acute cont immunosuppressive f/u opt rheum Qualifiers: Qualified Code(s): M06.9 - Rheumatoid arthritis, unspecified Subjective Principal diagnosis: Pulmonary Nodules Interval history: No events overnight. Denies cough or hemoptysis no hoarseness of voice Objective PUL Vital signs: Last Vital Signs Temp 99.4 F 10/03/16 11:20 Pulse 93 10/03/16 11:20 Resp 20 10/03/16 11:24 BP 94/54 10/03/16 11:20 Pulse Ox 96 10/03/16 11:24 General appearance: no acute distress Eyes: nonicteric ENT: oropharynx moist Neck: no lymphadenopathy Auscultation: bilateral: clear Cardiovascular: regular rate and rhythm Gastrointestinal: tender Extremities: no edema normal mental status Results - Laboratory Findings CBC and BMP: 10/03/16 07:27 10/03/16 07:27 PT/INR, D-dimer PT 12.2 Seconds (9.4-12.1) H 10/01/16 17:18 Abnormal lab findings: Abnormal lab results RBC 3.74 M/mcL (3.82-4.97) L 10/03/16 07:27 Hgb 10.8 g/dL (11.5-15.4) L 10/03/16 07:27 Hct 33.6 % (35.3-44.9) L 10/03/16 07:27 RDW 16.1 % (11.5-14.5) H 10/03/16 07:27 MPV 8.3 fL (9.4-12.4) L 10/03/16 07:27 ESR 43 mm/hr (0-15) H 10/02/16 03:59 PT 12.2 Seconds (9.4-12.1) H 10/01/16 17:18 Sodium 132 mEq/L (136-145) L 10/03/16 07:27 Chloride 93 mEq/L (98-109) L 10/03/16 07:27 Carbon Dioxide 31 mEq/L (19-29) H 10/03/16 07:27 BUN 6 mg/dL (7-20) L 10/03/16 07:27 Glucose 68 mg/dL (70-99) L 10/03/16 07:27 Calculated Osmolality 270 (280-300) L 10/03/16 07:27 C-Reactive Protein 41 mg/L (Less than 5) H 10/02/16 03:58 Albumin 2.9 g/dL (3.5-5.0) L 10/01/16 17:18 Globulin 4.0 g/dL (2.4-3.5) H 10/01/16 17:18 Albumin/Globulin Ratio 0.7 (1.1-2.2) L 10/01/16 17:18 Fluid Appearance Slightly Hazy (Clear) A 10/02/16 16:33 Coronavirus OC43 (PCR) DETECTED (Not Detect) A 10/01/16 17:30 - Microbiology Findings Microbiology Findings: Microbiology, Last 48 Hours 10/02/16 16:33 Acid Fast Stain - Final Right Middle Lobe Lung 10/02/16 23:26 Acid Fast Stain - Final Sputum 10/02/16 16:33 Gram Stain - Final Right Middle Lobe Lung Respiratory Culture - Preliminary Normal upper respiratory tract garcía. No apparent pathogens isolated. 10/02/16 06:30 Acid Fast Stain - Final Sputum - Clinical Findings Intake & Output: Intake & Output 10/02/16 10/03/16 10/03/16 23:59 07:59 15:59 Intake Total 240 / 240 340 / 340 Output Total 300 / 300 450 / 450 Balance -60 / -60 -450 / -450 340 / 340 Weight 50 kg Consult Discharge Plan - Plan Referrals: Melany Arizmendi, YIN [Primary Care Provider] -
[2016-10-05 14:09] LABS: A.galactomannan Ag Index 0.05
[2016-10-05 15:23] LABS: QuantiFERON Mitogen minus NIL >10.00 IU/mL; QuantiFERON-TB minus NIL 0.05 IU/mL (0.00-0.34)
[2016-10-06 08:46] LABS: QuantiFERON NIL 0.29 IU/mL; QuantiFERON-TB Gold In-Tube NEGATIVE (Negative)
[2016-10-06 08:48] LABS: Immunoglobulin A 198 mg/dL (68-408); Immunoglobulin G 1170 mg/dL (768-1632); Immunoglobulin M 73 mg/dL (35-263); Myeloperoxidase Ab 0 AU/mL (0-19); Serine Protease-3 Antibody 0 AU/mL (0-19)
[2016-10-07 11:14] LABS: Aspergillus Ab by CF <1:8 (<1:8); Blastomyces Ab by CF <1:8 (<1:8); Coccidioides Ab by CF <1:2 (<1:2)
== END 2016-10-03 14:43 | disposition home or self-care (01) ==
LOC: EMEROO 16:19 → 3BNU 16:19 → SUATTDRO 18:53 → 3BNU 19:55
PROVIDERS: ADMIT Family Medicine; ATTEND Internal Medicine
PROC: ENDOBRF (2016-10-02 14:00)

== ENCOUNTER 2017-01-26 12:08 | Observation (INO) ==
--- NOTE | 2017-01-26 12:20 | Emergency Department Note ---
Disposition Clinical Impression: Syncope due to orthostatic hypotension, Dehydration Disposition: Admitted As Inpatient Condition: Fair Referrals: Melany Arizmendi CNP [Primary Care Provider] - Time of Disposition: 14:02 Syncope HPI - General Chief Complaint: ED Syncope Stated Complaint: keeps passing out Time Seen by Provider: 01/26/17 12:11 Source: patient, family Mode of arrival: wheelchair Limitations: no limitations Nursing Notes Reviewed: Yes Vital Signs Reviewed: Yes - History of Present Illness HPI Narrative: 51-year-old who states she's been sleeping for the last 4 days had 2 episodes of syncope today. States she was started on a new arthritis medicine but doesn' t know the name. Patient states she just feels blocked. She denies pain anywhere she denies fever. 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 Duration: minutes(s) Prodromal Symptoms: lightheaded Witnessed: yes - by bystander Context: at rest Injuries Sustained Associated with Event: none Treatments prior to arrival: none - Related Data Home Medications Medication Instructions Recorded Confirmed Albuterol Sulfate [Ventolin Hfa] 2 puff IH Q4H PRN 10/13/15 12/14/16 Cyclobenzaprine [Flexeril] 10 mg PO BID 10/13/15 12/14/16 Dicyclomine [Bentyl] 10 mg PO TID 10/13/15 12/14/16 Divalproex (24 HR) [Depakote ER 750 mg PO HS 10/13/15 12/14/16 (24 HR)] Folic Acid 5 mg PO DAILY 10/13/15 12/14/16 Hydroxychloroquine [Plaquenuil] 300 mg PO DAILY 10/13/15 12/14/16 LORazepam [Ativan] 0.5 mg PO BID 10/13/15 12/14/16 Lisinopril [Zestril] 10 mg PO DAILY 10/13/15 12/14/16 Loratadine [Claritin] 10 mg PO DAILY 10/13/15 12/14/16 Omeprazole [PriLOSEC] 20 mg PO DAILY 10/13/15 12/14/16 amLODIPine [Norvasc] 5 mg PO DAILY 10/13/15 12/14/16 Albuterol Neb [AccuNeb] 0.63 mg IH QID 10/01/16 12/14/16 Ferrous Sulfate 325 mg PO DAILY 10/01/16 12/14/16 Fluticasone Propionate Nasal 50 mcg NS DAILY 10/01/16 12/14/16 [Flonase] Gabapentin [Neurontin] 800 mg PO TID 10/01/16 12/14/16 Oxygen 2 l NS HS 10/01/16 12/14/16 Quetiapine Fumarate [Seroquel] 50 mg PO HS 10/01/16 12/14/16 Umeclidinium Brm/Vilanterol Tr 1 each IH DAILY 10/01/16 12/14/16 [Anoro Ellipta 62.5-25 Mcg INH] predniSONE [PredniSONE] 5 mg PO DAILY 10/01/16 12/14/16 Methotrexate [Otrexup] 17.5 mg PO TH 12/14/16 12/14/16 Nicotine Patch [Nicoderm] 14 mg TD DAILY 12/14/16 12/14/16 Pregabalin [Lyrica] 100 mg PO BID 12/14/16 12/14/16 Allergies Allergy/AdvReac Type Severity Reaction Status Date / Time No Known Allergies Allergy Verified 12/14/16 12:21 All systems ED: reviewed and negative except as stated. Constitutional: Denies: fever, chills, weakness, weight change Eyes: Denies: eye pain, eye discharge, vision change ENT ED: Denies: ear pain, throat pain, dental pain, hearing loss, epistaxis, congestion, dysphagia Cardiovascular: Reports: syncope. Denies: chest pain, palpitations, dyspnea on exertion, edema Respiratory: Denies: cough, dyspnea, wheezes, hemoptysis, stridor Gastrointestinal: Denies: abdominal pain, nausea, vomiting, diarrhea, constipation, hematemesis, melena, hematochezia Genitourinary: Denies: dysuria, frequency, hematuria, discharge Musculoskeletal: Denies: back pain, neck pain, arthralgia, myalgia Integumentary: Denies: rash, abrasion, lesions Neurological: Denies: headache, weakness, numbness, paresthesias, confusion, abnormal gait, vertigo Psychiatric: Denies: anxiety, depression, suicidal thoughts, homicidal thoughts , auditory hallucinations, visual hallucinations Endocrine: Denies: fatigue Hematological/Lymphatic: Denies: easy bleeding, easy bruising Allergic/Immunologic: Denies: facial swelling, urticaria Past Medical History - Past Medical History Medical history: Reports: asthma, cancer, COPD, hypertension, RA, renal disease Psychiatric history: Reports: anxiety - Social History Smoking Status: Current every day smoker Smokeless Tobacco Status: No Alcohol use: Reports: none Drug use: Reports: none Physical Exam - General Limitations: no limitations General appearance: alert, in no apparent distress - Head Head exam: atraumatic, normocephalic, normal inspection - Eye Eye exam: Present: normal appearance, PERRL, EOMI - ENT ENT exam: normal exam, normal oropharynx, mucous membranes moist - Neck Neck exam: Present: normal inspection, full ROM, trachea midline - Chest Chest inspection: Present: normal inspection, symmetric chest wall rise - Respiratory Respiratory exam: Present: normal lung sounds bilaterally - Cardiovascular Cardiovascular exam: Present: regular rate, normal rhythm, normal heart sounds - Abdominal Exam Abdominal exam: Present: soft, Non-Tender. Absent: tenderness, distention, guarding, rebound, rigidity - Extremities Exam Extremities exam: Present: normal inspection - Expanded Lower Extremity Exam Neurovascular/Tendon exam: Absent: motor deficit, sensory deficit, tendon deficit Gait: not tested/not observed - Back Exam Back exam: Present: normal inspection, full ROM. Absent: tenderness - Neurological Exam Neurological exam: Present: alert, oriented X3 - Psychiatric Psychiatric exam: Present: normal affect, normal mood - Skin Skin exam: Present: warm, dry, intact, normal color Course - Reevaluation(s) Reevaluation #1: Patient states that she has not felt well for the last few days. Had a syncopal episode today. Workup here included acute kidney injury. She had orthostatic blood pressure changes appears to be dehydrated. Patient will be admitted for further evaluation and treatment. Time: 14:02 - Consultations Consultation #1: Discussed with Dr. Sandoval, admit. Time: 14:03 Vital Signs Temperature 97.6 F 01/26/17 12:13 Pulse Rate 103 01/26/17 12:13 Respiratory Rate 18 01/26/17 12:13 Blood Pressure 110/80 01/26/17 12:13 O2 Sat by Pulse Oximetry 97 01/26/17 12:13 Temperature 97.6 F 01/26/17 12:13 Pulse Rate 91 01/26/17 13:41 Respiratory Rate 18 01/26/17 12:46 Blood Pressure 103/58 01/26/17 13:41 O2 Sat by Pulse Oximetry 96 01/26/17 12:46 Syncope - Lab Data Result diagrams: 01/26/17 12:37 01/26/17 12:37 Lab Results 01/26/17 01/26/17 01/26/17 Range/Units 12:37 12:37 12:37 WBC 6.2 (4.3-11.1) K/mcL RBC 3.81 L (3.82-4.97) M/mcL Hgb 11.5 (11.5-15.4) g/dL Hct 34.4 L (35.3-44.9) % MCV 90.3 (83.0-100.0) fL MCH 30.2 (28.0-33.3) pg MCHC 33.4 (31.6-35.5) g/dL RDW 17.7 H (11.5-14.5) % Plt Count 103 L (140-400) K/mcL MPV 9.2 L (9.4-12.4) fL Immature Gran % 0.6 (0-4) % Seg Neutrophils % 88.3 % Lymphocytes % 8.3 % Monocytes % 2.1 % Eosinophils % 0.5 % Basophils % 0.2 % Neutrophils # 5.5 (1.6-8.9) K/mcL Lymphocytes # 0.5 L (0.6-4.6) K/mcL Monocytes # 0.1 (0.0-1.3) K/mcL Eosinophils # 0.0 (0.0-0.6) K/mcL Basophils # 0.0 (0.0-0.2) K/mcL Platelet Estimate Decreased L (Normal) Immature Plt Fraction 3.3 (1.1-6.1) % Anisocytosis 1+ A (Not Present) PT 11.5 (9.4-12.1) Seconds INR 1.1 APTT 25.9 L (26.0-36.0) Seconds Sodium 130 L (136-145) mEq/L Potassium 5.0 H (3.5-4.5) mEq/L Chloride 98 (98-109) mEq/L Carbon Dioxide 23 (19-29) mEq/L BUN 29 H (7-20) mg/dL Creatinine 1.81 H (0.57-1.11) mg/dL Est GFR ( Amer) 35 L (> 60) Est GFR (Non-Af Amer) 29 L (> 60) BUN/Creatinine Ratio 16 (6-26) Glucose 133 H (70-99) mg/dL Calculated Osmolality 278 L (280-300) Calcium 8.9 (8.6-10.8) mg/dL Creatine Kinase 80 (29-168) Units/L Troponin I (0-0.03) ng/mL 01/26/17 Range/Units 12:37 WBC (4.3-11.1) K/mcL RBC (3.82-4.97) M/mcL Hgb (11.5-15.4) g/dL Hct (35.3-44.9) % MCV (83.0-100.0) fL MCH (28.0-33.3) pg MCHC (31.6-35.5) g/dL RDW (11.5-14.5) % Plt Count (140-400) K/mcL MPV (9.4-12.4) fL Immature Gran % (0-4) % Seg Neutrophils % % Lymphocytes % % Monocytes % % Eosinophils % % Basophils % % Neutrophils # (1.6-8.9) K/mcL Lymphocytes # (0.6-4.6) K/mcL Monocytes # (0.0-1.3) K/mcL Eosinophils # (0.0-0.6) K/mcL Basophils # (0.0-0.2) K/mcL Platelet Estimate (Normal) Immature Plt Fraction (1.1-6.1) % Anisocytosis (Not Present) PT (9.4-12.1) Seconds INR APTT (26.0-36.0) Seconds Sodium (136-145) mEq/L Potassium (3.5-4.5) mEq/L Chloride (98-109) mEq/L Carbon Dioxide (19-29) mEq/L BUN (7-20) mg/dL Creatinine (0.57-1.11) mg/dL Est GFR ( Amer) (> 60) Est GFR (Non-Af Amer) (> 60) BUN/Creatinine Ratio (6-26) Glucose (70-99) mg/dL Calculated Osmolality (280-300) Calcium (8.6-10.8) mg/dL Creatine Kinase (29-168) Units/L Troponin I 0.00 (0-0.03) ng/mL - EKG Data EKG attestation: Yes I reviewed and interpreted this EKG. EKG shows normal: sinus rhythm Rate: normal Rhythm: NSR Interpretation: no acute changes
[2017-01-26 12:43] LABS: Basophils % 0.2 %; Eosinophils % 0.5 %; Hematocrit 34.4 % (35.3-44.9); Hemoglobin 11.5 g/dL (11.5-15.4); Immature Granulocytes % 0.6 % (0-4); Immature Platelets 3.3 % (1.1-6.1); Lymphocytes # 0.5 K/mcL (0.6-4.6); Lymphocytes % 8.3 %; Mean Corpuscular HGB Conc 33.4 g/dL (31.6-35.5); Mean Corpuscular Hemoglobin 30.2 pg (28.0-33.3); Mean Corpuscular Volume 90.3 fL (83.0-100.0); Mean Platelet Volume 9.2 fL (9.4-12.4); Monocytes # 0.1 K/mcL (0.0-1.3); Monocytes % 2.1 %; Neutrophils # 5.5 K/mcL (1.6-8.9); Platelet Count 103 K/mcL (140-400); Red Blood Count 3.81 M/mcL (3.82-4.97); Red Cell Distribution Width 17.7 % (11.5-14.5); Segmented Neutrophils % 88.3 %
[2017-01-26 12:50] LABS: INR 1.1; Prothrombin Time 11.5 Seconds (9.4-12.1)
[2017-01-26 12:53] LABS: Activated Partial Thrombo Time 25.9 Seconds (26.0-36.0)
[2017-01-26 12:56] LABS: Calcium 8.9 mg/dL (8.6-10.8)
[2017-01-26 13:24] LABS: Anisocytosis 1+ (Not Present); Platelet Estimate Decreased (Normal)
[2017-01-26] MEDS ORDERED: 0.9 % Sodium Chloride 1,000 ML IVC ONE (13:44)
[2017-01-26] MEDS ORDERED: Acetaminophen 325 MG TABLET PO PRN (13:54)
[2017-01-26] MEDS ORDERED: Ondansetron 4 MG/2 ML VIAL IVP PRN (13:54)
--- NOTE | 2017-01-26 15:29 | Internal Med History&Physical ---
Date of Encounter: 01/26/17 Time of Encounter: 14:30 Assessment and Plan (1) Syncope due to orthostatic hypotension Current visit: Yes Status: Acute plan as dehydration. (2) Dehydration Current visit: Yes Status: Acute Two weeks ago, patient was diagnosed with left arm skin infection and was prescribed Keflex and Bactrim for 10 days, her last dose of Bactrim was last . Last Tuesday, patient took a new RA medication for the first time ( she does not recall the exact name but she thinks it is leflunomide) and next day she became very tired and fatigued to the point that she was only sleeping almost all day. She denies any diarrhea, nausea, vomiting, fever, chest pain, shortness of breath, night sweats, diaphoresis, or bleeding. Her family noticed that she was drinking and eating less and her mouth was very dry. This morning, patient had 2 syncopal episodes while standing up. In our ED, patient had a positive orthostatic BP 79/56 while sitting up. She received 1 L of normal saline. Likely source of dehydration is poor oral intake from recent RA medication +/- lisinopril use. continue IV fluids. Place patient in observation status. (3) GLENN (acute kidney injury) Current visit: Yes Status: Acute GLENN with hyperkalemia. liekly pre-renal secondary to dehydration +/- use of lisinopril and bactrim. Continue IV fluids. check urine lytes. avoid nephrotoxic agents as possible. close monitoring of kidney function. repeat BMP this evening. (4) Hyperkalemia Current visit: Yes Status: Acute plan as above. (5) Hyponatremia Current visit: Yes Status: Acute mild hypovolemic hyponatremia. Continue IV fluids. (6) COPD (chronic obstructive pulmonary disease) Current visit: No Status: Chronic stable. continue nebs. Qualifiers: COPD type: unspecified COPD Qualified Code(s): J44.9 - Chronic obstructive pulmonary disease, unspecified (7) Rheumatoid arthritis Current visit: No Status: Chronic continue hydoxychloroquine. Outpatient discussion with cream buyer about side effects of new medication. Qualifiers: Rheumatoid arthritis location: unspecified site Rheumatoid factor presence : unspecified presence Qualified Code(s): M06.9 - Rheumatoid arthritis, unspecified (8) HTN (hypertension) Current visit: No Status: Chronic now hypotensive in orthostatics. hold lisinopril and amlodipine. Qualifiers: Hypertension type: essential hypertension Qualified Code(s): I10 - Essential (primary) hypertension Internal Medicine - H&P: HPI Chief complaint: 2 syncopal episodes this morning Admitted From: Home Plans for Post Hospital Care: Home History of present illness: Ms. Garcia is a 51 year old female with past medical history of rheumatoid arthritis on methotrexate and hydoxychloroquine, COPD, hypertension, CKD 3, history of pulmonary cavitary lesion secondary to fungal infection in September 2016 and tobacco use. 2 weeks ago, patient was diagnosed with left arm skin infection and was prescribed Keflex and Bactrim for 10 days, her last dose of Bactrim was last . Last Tuesday, patient took a new RA medication for the first time (she does not recall the exact name but she thinks it is leflunomide) and next day she became very tired and fatigued to the point that she was only sleeping almost all day. She denies any diarrhea, nausea, vomiting , fever, chest pain, shortness of breath, night sweats, diaphoresis, dysphagia, odinophagia or bleeding. Her family noticed that she was drinking and eating less and her mouth was very dry. This morning, patient had 2 syncopal episodes while standing up. In our ED, patient had a positive orthostatic BP 79/56 while sitting up. She received 1 L of normal saline. Past Med Surg Social Fam HX - Past Medical History Medical history: asthma, cancer, COPD, hypertension, RA, renal disease Psychiatric history: anxiety - Social History Smoking Status: Current every day smoker Smokeless Tobacco Status: No Alcohol use: none Drug use: none - Family History Mother Hx Family Respiratory Disorders: Yes (bronchial mass collapsed lung) Hx Family GI Disorders: Yes (ulcers) Father Hx Family Endocrine Disorder: Yes (Diabetes) Hx Family Neurologic Disorders: Yes (parkinson's disease) Internal Medicine - H&P: Meds Albuterol Sulfate [Ventolin Hfa] 2 puff IH Q4H PRN 10/13/15 [History] Cyclobenzaprine [Flexeril] 10 mg PO BID 10/13/15 [History] Dicyclomine [Bentyl] 20 mg PO TID 10/13/15 [History] Divalproex (24 HR) [Depakote ER (24 HR)] 750 mg PO HS 10/13/15 [History] Folic Acid 5 mg PO DAILY 10/13/15 [History] Hydroxychloroquine [Plaquenuil] 300 mg PO DAILY 10/13/15 [History] LORazepam [Ativan] 0.5 mg PO BID 10/13/15 [History] Lisinopril [Zestril] 10 mg PO DAILY 10/13/15 [History] Loratadine [Claritin] 10 mg PO DAILY 10/13/15 [History] Omeprazole [PriLOSEC] 20 mg PO DAILY 10/13/15 [History] amLODIPine [Norvasc] 5 mg PO DAILY 10/13/15 [History] Albuterol Neb [AccuNeb] 0.63 mg IH QID 10/01/16 [History] Ferrous Sulfate 325 mg PO DAILY 10/01/16 [History] Fluticasone Propionate Nasal [Flonase] 50 mcg NS DAILY 10/01/16 [History] Gabapentin [Neurontin] 800 mg PO TID 10/01/16 [History] Oxygen 2 l NS HS 10/01/16 [History] Quetiapine Fumarate [Seroquel] 50 mg PO HS 10/01/16 [History] Umeclidinium Brm/Vilanterol Tr [Anoro Ellipta 62.5-25 Mcg INH] 1 each IH DAILY 10/01/16 [History] predniSONE [PredniSONE] 5 mg PO DAILY 10/01/16 [History] Methotrexate [Otrexup] 17.5 mg PO TH 12/14/16 [History] Alendronate Sodium [Fosamax] 70 mg PO FR 01/26/17 [History] Cholecalciferol (Vitamin D3) [Vitamin D3] 3,000 unit PO DAILY 01/26/17 [History] Lovastatin [Lovastatin] 10 mg PO QPM 01/26/17 [History] Propylene Glycol/Peg 400 [Systane 0.3-0.4% Eye Drops] 2 drop OP Q4H PRN [History] Allergies No Known Allergies Allergy (Verified 12/14/16 12:21) All Systems PM: A 10-system review of systems was performed and is negative for pertinent findings except as documented above in the HPI. - Constitutional Vitals: Temp Pulse Resp BP Pulse Ox 97.6 F 83 18 105/62 96 01/26/17 12:13 01/26/17 14:54 01/26/17 14:54 01/26/17 14:54 01/26/17 14:54 General appearance: Present: cooperative, A&O X 3, pleasant, no acute distress, underweight, answers questions appropriately Exam: patient is very thin. - Eye Eye exam: Present: PERRL, sclera anicteric - ENT ENT exam: Present: mucous membranes dry - Neck Neck exam general surgery: Present: supple, trachea midline. Absent: lymphadenopathy - Respiratory Respiratory exam: Present: CTAB - Cardiovascular Cardiovascular exam: Present: RRR - GI/Abdominal GI/Abdominal exam: Present: normal bowel sounds, soft. Absent: distended, tenderness - Extremities Exam Extremities exam: Absent: pedal edema Additional comments: multiple joint deformities due to rheumatoid arthritis. - Back Exam Back exam: Absent: CVA tenderness (L), CVA tenderness (R) - Neurological Exam Neurological exam: Present: alert, oriented X3, no focal deficits, strengths equal and symetr throughout. Absent: facial droop, speech deficit - Skin Skin exam: Present: dry. Absent: rash Internal Med - H&P Results - Labs CBC & Chem 7: 01/26/17 12:37 01/26/17 12:37
--- NOTE | 2017-01-26 15:48 | Electrocardiograph Report ---
[facility] Test Date: 2017-01-26 Pat Name: Kelly Garcia Department: 102 Room: 2NE31 Gender: F [employer]: : 1965 Requested By: Shoaib Patel Order Number: [id number] Reading MD: Nirav Grider MD Measurements Intervals [place] Rate: 91 P: 69 MD: 149 QRS: 63 QRSD: 93 T: 78 QT: 332 QTc: 381 Interpretive Statements SINUS RHYTHM Electronically Signed On 01-26-2017 15:47:06 EDT by Nirav Grider MD
[2017-01-26 16:45] LABS: Bilirubin,Urine Negative (Negative); Blood,Urine Trace (Negative); Clarity,Urine Clear (Clear); Color,Urine Yellow (Yellow); Glucose,Urine (UA) Normal (Normal); Ketones,Urine Negative (Negative); Leukocyte Esterase,Urine Moderate (Negative); Nitrite,Urine Negative (Negative); PH,Urine 6.5 pH Units (5.0-8.0); Protein,Urine Negative (Neg-Trace); Specific Gravity,Urine 1.013 (1.010-1.025); Urobilinogen,Urine Normal (Normal)
[2017-01-26 16:49] LABS: Bacteria,Urine None Seen per hpf (None-Few); Hyaline Casts,Urine None Seen per lpf (None-Few); RBC,Urine 0-3 per hpf (0-3); Squamous Epithelial Cell,Urine Many per lpf (None-Few)
[2017-01-26 16:52] LABS: Amphetamine Screen,Urine Negative ng/mL (Cutoff=1000); Barbiturate Screen,Urine Negative ng/mL (Cutoff=200); Benzodiazepines Screen,Urine Negative ng/mL (Cutoff=200); Cannabinoid Screen,Urine Positive ng/mL (Cutoff = 50); Cocaine Screen,Urine Negative ng/mL (Cutoff= 300); Opiate Screen,Urine Negative ng/mL (Cutoff=300); Phencyclidine Screen,Urine Negative ng/mL (Cutoff=25)
[2017-01-26 19:17] LABS: Calcium 8.3 mg/dL (8.6-10.8)
[2017-01-26] MEDS: Albuterol Neb 0.63 MG/3 ML VIAL IH SCH (20:30)
[2017-01-26] MEDS: 0.9 % Sodium Chloride 1,000 ML IVC SCH (21:25)
[2017-01-26] MEDS: Nicotine 7 MG PATCH.TD24 TD SCH (21:25)
[2017-01-26] MEDS: Divalproex (24 HR) 250 MG TABLET PO SCH (21:25)
[2017-01-26] MEDS: traMADol 50 MG TABLET PO PRN (22:24)
[2017-01-27] MEDS: Albuterol Neb 0.63 MG/3 ML VIAL IH SCH ×5 (00:10→23:17)
[2017-01-27 05:11] LABS: Mean Platelet Volume 9.7 fL (9.4-12.4)
[2017-01-27 05:13] LABS: Hematocrit 31.9 % (35.3-44.9); Hemoglobin 10.3 g/dL (11.5-15.4); Immature Platelets 2.9 % (1.1-6.1); Mean Corpuscular HGB Conc 32.3 g/dL (31.6-35.5); Mean Corpuscular Hemoglobin 29.8 pg (28.0-33.3); Mean Corpuscular Volume 92.2 fL (83.0-100.0); Monocytes # 0.2 K/mcL (0.0-1.3); Red Blood Count 3.46 M/mcL (3.82-4.97); Red Cell Distribution Width 17.4 % (11.5-14.5)
[2017-01-27 05:39] LABS: Alanine Aminotransferase 12 Units/L (0-55); Albumin 2.8 g/dL (3.5-5.0); Alkaline Phosphatase 65 Units/L (38-126); Aspartate Amino Transferase 14 Units/L (5-34); BUN/Creatinine Ratio 15 (6-26); Bilirubin,Direct 0.2 mg/dL (0.0-0.5); Bilirubin,Indirect 0.1 mg/dL (0.0-1.2); Bilirubin,Total 0.3 mg/dL (0.2-1.2); Blood Urea Nitrogen 16 mg/dL (7-20); Calcium 8.2 mg/dL (8.6-10.8); Carbon Dioxide 25 mEq/L (19-29); Chloride 104 mEq/L (98-109); Globulin 2.9 g/dL (2.4-3.5); Glucose 77 mg/dL (70-99); Magnesium 1.7 mg/dL (1.6-2.6); Osmolality,Calculated 280 (280-300); Phosphorous 3.2 mg/dL (2.3-4.7); Potassium 4.7 mEq/L (3.5-4.5); Sodium 135 mEq/L (136-145); Total Protein 5.7 g/dL (6.0-8.3); eGFR For African Americans > 60 (> 60); eGFR For Non-African Americans 53 (> 60)
[2017-01-27 06:01] LABS: Large Platelets Present (Not Present); Platelet Estimate Decreased (Normal)
[2017-01-27 06:02] LABS: Platelet Count 78 K/mcL (140-400)
[2017-01-27 06:05] LABS: Anisocytosis 1+ (Not Present); Lymphocytes # 1.4 K/mcL (0.6-4.6)
[2017-01-27] MEDS: 0.9 % Sodium Chloride 1,000 ML IVC SCH ×2 (06:15→19:04)
[2017-01-27] MEDS: Pantoprazole 40 MG VIAL IVP SCH (08:44)
[2017-01-27] MEDS: Folic Acid 1 MG TABLET PO SCH (08:45)
[2017-01-27] MEDS: predniSONE 5 MG TABLET PO SCH (08:45)
[2017-01-27] MEDS: *HR* LORazepam 0.5 MG TABLET PO SCH ×2 (08:45→20:11)
[2017-01-27] MEDS: Nicotine 7 MG PATCH.TD24 TD SCH (08:46)
[2017-01-27] MEDS: Fluticasone Propionate Nasal 50 MCG/SPRAY BOTTLE NS SCH (08:47)
--- NOTE | 2017-01-27 10:37 | Internal Med Progress Note ---
<Laya Muhammad Nkechi - Last Filed: 01/27/17 12:57> Date of Encounter: 01/27/17 Time of Encounter: 10:31 - Assessment and plan (1) Syncope due to orthostatic hypotension Current Visit: Yes Status: Acute Assessment and plan: likely due to combination of no oral intake for several days, on lasix, RA medication on admission BP 79/56 repeat orthostatics IVF supportive care (2) GLENN (acute kidney injury) Current Visit: Yes Status: Acute Assessment and plan: pt hypotensive, dehydrated with little PO intake for several days on lasix renal function improved with IVF and increased PO intake since admission BUN 16/Cr 1.0 continue hydration, continue renal function monitoring avoid nephrotoxin (3) Dehydration Current Visit: Yes Status: Acute (4) Hyperkalemia Current Visit: Yes Status: Acute Assessment and plan: 4.7, improved since yesterday oral calcium, IVF continue to monitor (5) Hyponatremia Current Visit: Yes Status: Acute Assessment and plan: improved, Na 135 IVF (6) COPD (chronic obstructive pulmonary disease) Current Visit: No Status: Chronic Qualifiers: COPD type: unspecified COPD Qualified Code(s): J44.9 - Chronic obstructive pulmonary disease, unspecified (7) HTN (hypertension) Current Visit: No Status: Chronic Assessment and plan: hypotensive on admission Qualifiers: Hypertension type: essential hypertension Qualified Code(s): I10 - Essential (primary) hypertension (8) Rheumatoid arthritis Current Visit: No Status: Chronic Assessment and plan: Spoke with Dr. Torres who she sees in outpt hold methotrexate until GLENN resolves, and pt feeling better continue prednisone, alandronate and plaquenate Qualifiers: Rheumatoid arthritis location: unspecified site Rheumatoid factor presence : unspecified presence Qualified Code(s): M06.9 - Rheumatoid arthritis, unspecified (9) Hypocalcemia Current Visit: Yes Status: Acute Assessment and plan: Ca 8.2 will replace - Subjective Interval history: 51 yo F presented with syncope and dehydration. Pt states she started a new immune modulating medication for her RA last week and since that time has been more fatigue and sleeping more then usual and has not been drinking or eating much since this time. She states she was not "feeling herself" and felt as if she was about to "come down" with something for the past few days. She then started to develop some lightheadedness with standing. She states that since admission she feels better, and relates it to the IV fluids. She states she has also been trying to inrease PO intake since admission. She denies chestpain, SOB , nausea, vomiting, LE edema, fever, chills. Pt could not recall name of new once a week injectable medication that was started last week, I spoke with Dr. Torres who sees her in outpt for her RA, the only new medication that was started last week was alandronate. - Constitutional Vitals: Temp Pulse Resp BP Pulse Ox 97.8 F 81 15 130/67 97 01/27/17 04:28 01/27/17 04:28 01/27/17 04:28 01/27/17 04:28 01/27/17 04:28 General appearance: Present: cooperative, A&O X 3, pleasant, no acute distress, underweight, answers questions appropriately - Head Head exam: Present: atraumatic, normocephalic - Eye Eye exam: Present: PERRL, conjuntiva pink, sclera anicteric Pupils: Present: PERRL - ENT ENT exam: Present: mucous membranes dry - Neck Neck exam general surgery: Present: supple, trachea midline. Absent: lymphadenopathy - Respiratory Respiratory exam: Present: CTAB. Absent: accessory muscle use, rales, rhonchi, wheezes - Cardiovascular Cardiovascular exam: Present: RRR, +S1, +S2. Absent: diastolic murmur, gallop, rubs, systolic murmur - GI/Abdominal GI/Abdominal exam: Present: normal bowel sounds, soft, no peritoneal signs. Absent: distended, tenderness - Extremities Exam Extremities exam: Present: normal capillary refill, warm, radial pulses palpable and symetrical. Absent: calf tenderness, cyanotic, pedal edema, tenderness - Neurological Exam Neurological exam: Present: CN II-XII intact, oriented X3, no focal deficits. Absent: pronater drift, facial droop, speech deficit - Skin Skin exam: Present: dry, intact Internal Medicine: Result - Labs CBC & Chem 7: 01/27/17 04:11 01/27/17 04:11 Labs: Short CBC 01/27/17 Range/Units 04:11 WBC 4.5 (4.3-11.1) K/mcL Hgb 10.3 L (11.5-15.4) g/dL Hct 31.9 L (35.3-44.9) % Plt Count 78 L (140-400) K/mcL Neutrophils # 3.0 (1.6-8.9) K/mcL BMP 01/26/17 01/27/17 18:56 04:11 Sodium 134 L 135 L Potassium 5.0 H 4.7 H Chloride 103 104 Carbon Dioxide 23 25 BUN 23 H 16 Creatinine 1.32 H 1.09 Glucose 102 H 77 Calcium 8.3 L 8.2 L Liver Function 01/27/17 Range/Units 04:11 Total Bilirubin 0.3 (0.2-1.2) mg/dL Direct Bilirubin 0.2 (0.0-0.5) mg/dL AST 14 (5-34) Units/L ALT 12 (0-55) Units/L Alkaline Phosphatase 65 (38-126) Units/L Albumin 2.8 L (3.5-5.0) g/dL Urine 01/26/17 Range/Units 16:31 Urine Color Yellow (Yellow) Urine Clarity Clear (Clear) Urine pH 6.5 (5.0-8.0) pH Units Ur Specific [place]win 1.013 (1.010-1.025) Urine Protein Negative (Neg-Trace) mg/dL Urine Glucose (UA) Normal (Normal) mg/dL - ABG Interpretation ABG results: PT/INR, D-dimer PT 11.5 Seconds (9.4-12.1) 01/26/17 12:37 Consult Discharge Plan - Plan Referrals: Melany Arizmendi CNP [Primary Care Provider] - 02/07/17 1:30 pm <Benjamín Anaya - Last Filed: 01/27/17 18:43> Date of Encounter: 01/27/17 - Assessment and plan (1) Syncope due to orthostatic hypotension Current Visit: Yes Status: Acute (2) GLENN (acute kidney injury) Current Visit: Yes Status: Acute (3) Dehydration Current Visit: Yes Status: Acute (4) COPD (chronic obstructive pulmonary disease) Current Visit: No Status: Chronic Qualifiers: COPD type: unspecified COPD Qualified Code(s): J44.9 - Chronic obstructive pulmonary disease, unspecified (5) Rheumatoid arthritis Current Visit: No Status: Chronic Qualifiers: Rheumatoid arthritis location: multiple sites Rheumatoid factor presence: unspecified presence Qualified Code(s): M06.9 - Rheumatoid arthritis, unspecified (6) Hyponatremia Current Visit: Yes Status: Acute - Constitutional Vitals: Temp Pulse Resp BP Pulse Ox 97.6 F 75 16 119/69 97 01/27/17 15:00 01/27/17 15:00 01/27/17 16:19 01/27/17 15:00 01/27/17 16:19 Internal Medicine: Result - Labs CBC & Chem 7: 01/27/17 04:11 01/27/17 04:11 Labs: Short CBC 01/27/17 Range/Units 04:11 WBC 4.5 (4.3-11.1) K/mcL Hgb 10.3 L (11.5-15.4) g/dL Hct 31.9 L (35.3-44.9) % Plt Count 78 L (140-400) K/mcL Neutrophils # 3.0 (1.6-8.9) K/mcL BMP 01/26/17 01/27/17 18:56 04:11 Sodium 134 L 135 L Potassium 5.0 H 4.7 H Chloride 103 104 Carbon Dioxide 23 25 BUN 23 H 16 Creatinine 1.32 H 1.09 Glucose 102 H 77 Calcium 8.3 L 8.2 L Liver Function 01/27/17 Range/Units 04:11 Total Bilirubin 0.3 (0.2-1.2) mg/dL Direct Bilirubin 0.2 (0.0-0.5) mg/dL AST 14 (5-34) Units/L ALT 12 (0-55) Units/L Alkaline Phosphatase 65 (38-126) Units/L Albumin 2.8 L (3.5-5.0) g/dL - ABG Interpretation ABG results: PT/INR, D-dimer PT 11.5 Seconds (9.4-12.1) 01/26/17 12:37 - Attending Attestation I examined this patient and my medical decision-making was reviewed with the Resident Physician on 01/27/17. I agree with the documented findings, disposition and treatment plan as described except to the extent set forth below. Ms Garcia is currently in observation due to acute orthostatic hypotension. Ms. Garcia is feeling better with IV fluids. She has some appetite but has not eaten or drank well. No fever or GI symptoms. No CP or SOB. Exam Alert. Thin Heart reg No wheeze Abd soft I/P 1. Orthostatic hypotension 2. Syncope 3. RA Further diagnoses and plan as above.
[2017-01-27] MEDS ORDERED: Ipratropium/Albuterol Neb 3 ML IH PRN (13:51)
[2017-01-27] MEDS ORDERED: *HR* Methotrexate 2.5 MG TABLET PO SCH (16:30)
[2017-01-27] MEDS: Divalproex (24 HR) 250 MG TABLET PO SCH (20:11)
[2017-01-27] MEDS: traMADol 50 MG TABLET PO PRN (20:11)
[2017-01-28] MEDS: traMADol 50 MG TABLET PO PRN (03:42)
[2017-01-28] MEDS: 0.9 % Sodium Chloride 1,000 ML IVC SCH (04:00)
[2017-01-28] MEDS: Albuterol Neb 0.63 MG/3 ML VIAL IH SCH ×2 (04:19→11:07)
[2017-01-28] MEDS: predniSONE 5 MG TABLET PO SCH (08:26)
[2017-01-28] MEDS: Folic Acid 1 MG TABLET PO SCH (08:26)
[2017-01-28] MEDS: *HR* LORazepam 0.5 MG TABLET PO SCH (08:27)
[2017-01-28] MEDS: Nicotine 7 MG PATCH.TD24 TD SCH (08:27)
[2017-01-28] MEDS: Pantoprazole 40 MG VIAL IVP SCH (08:28)
--- NOTE | 2017-01-28 09:47 | Internal Med Progress Note ---
Date of Encounter: 01/28/17 Time of Encounter: 09:45 - Assessment and plan (1) Syncope due to orthostatic hypotension Current Visit: Yes Status: Acute Assessment and plan: likely due to combination of no oral intake for several days, on lasix, RA medication on admission BP 79/56 repeat orthostatics are improved since admission BP 121/70 this morning supportive care (2) GLENN (acute kidney injury) Current Visit: Yes Status: Acute Assessment and plan: pt hypotensive, dehydrated with little PO intake for several days on lasix renal function improved with IVF and increased PO intake since admission continue hydration, continue renal function monitoring avoid nephrotoxin hold methotrexate for now (3) Dehydration Current Visit: Yes Status: Acute Assessment and plan: impreoved IF PO intake (4) Hyperkalemia Current Visit: Yes Status: Acute Assessment and plan: improved oral calcium, IVF continue to monitor (5) Hyponatremia Current Visit: Yes Status: Acute Assessment and plan: improved, Na 135 IVF (6) COPD (chronic obstructive pulmonary disease) Current Visit: No Status: Chronic Assessment and plan: bronchodilator therapy as needed Qualifiers: COPD type: unspecified COPD Qualified Code(s): J44.9 - Chronic obstructive pulmonary disease, unspecified (7) HTN (hypertension) Current Visit: No Status: Chronic Assessment and plan: hypotensive on admission Qualifiers: Hypertension type: essential hypertension Qualified Code(s): I10 - Essential (primary) hypertension (8) Rheumatoid arthritis Current Visit: No Status: Chronic Assessment and plan: Spoke with Dr. Torres who she sees in outpt hold methotrexate until GLENN resolves, and pt feeling better continue prednisone, alandronate and plaquenone Qualifiers: Rheumatoid arthritis location: multiple sites Rheumatoid factor presence: unspecified presence Qualified Code(s): M06.9 - Rheumatoid arthritis, unspecified (9) Hypocalcemia Current Visit: Yes Status: Acute Assessment and plan: Ca 8.2 will replace (10) UTI (urinary tract infection) Current Visit: Yes Status: Acute Assessment and plan: +LE, WBC and RBC in UA, in setting of "passing out/AMS" treat with abx therapy urine ctx Qualifiers: Urinary tract infection type: acute cystitis Hematuria presence: with hematuria Qualified Code(s): N30.01 - Acute cystitis with hematuria - Subjective Interval history: 51 yo F presented with syncope and dehydration. Pt states she started a new immune modulating medication for her RA last week and since that time has been more fatigue and sleeping more then usual and has not been drinking or eating much since this time. She states she was not "feeling herself" and felt as if she was about to "come down" with something for the past few days. She then started to develop some lightheadedness with standing. She states that since admission she feels better, and relates it to the IV fluids. She states she has also been trying to inrease PO intake since admission. She denies chestpain, SOB , nausea, vomiting, LE edema, fever, chills. Pt could not recall name of new once a week injectable medication that was started last week, I spoke with Dr. Torres who sees her in outpt for her RA, the only new medication that was started last week was alandronate. - Constitutional Vitals: Temp Pulse Resp BP Pulse Ox 97.6 F 67 18 121/70 98 01/28/17 07:14 01/28/17 07:14 01/28/17 07:14 01/28/17 07:14 01/28/17 04:21 General appearance: Present: cooperative, A&O X 3, pleasant, no acute distress, underweight, answers questions appropriately - Head Head exam: Present: atraumatic, normocephalic - Eye Eye exam: Present: PERRL, conjuntiva pink, sclera anicteric Pupils: Present: PERRL - Neck Neck exam general surgery: Present: supple, trachea midline. Absent: lymphadenopathy - Respiratory Respiratory exam: Present: CTAB. Absent: accessory muscle use, rales, rhonchi, wheezes - Cardiovascular Cardiovascular exam: Present: RRR, +S1, +S2. Absent: diastolic murmur, gallop, rubs, systolic murmur - GI/Abdominal GI/Abdominal exam: Present: normal bowel sounds, soft, no peritoneal signs. Absent: distended, tenderness - Extremities Exam Extremities exam: Present: warm, radial pulses palpable and symetrical. Absent : calf tenderness, cyanotic, pedal edema - Neurological Exam Neurological exam: Present: CN II-XII intact, oriented X3, no focal deficits. Absent: pronater drift, facial droop, speech deficit - Skin Skin exam: Present: dry, intact Internal Medicine: Result - Labs CBC & Chem 7: 01/27/17 04:11 01/27/17 04:11 - ABG Interpretation ABG results: PT/INR, D-dimer PT 11.5 Seconds (9.4-12.1) 01/26/17 12:37 Consult Discharge Plan - Plan Referrals: Melany Arizmendi CNP [Primary Care Provider] - 02/07/17 1:30 pm
[2017-01-28 10:07] LABS: Hemoglobin 9.2 g/dL (11.5-15.4); Mean Corpuscular Hemoglobin 30.2 pg (28.0-33.3); Red Blood Count 3.05 M/mcL (3.82-4.97)
[2017-01-28 10:09] LABS: Hematocrit 27.9 % (35.3-44.9); Immature Platelets 3.4 % (1.1-6.1); Mean Corpuscular Volume 91.5 fL (83.0-100.0); Mean Platelet Volume 9.9 fL (9.4-12.4)
[2017-01-28 10:18] LABS: BUN/Creatinine Ratio 7 (6-26); Blood Urea Nitrogen 6 mg/dL (7-20); Calcium 8.2 mg/dL (8.6-10.8); Carbon Dioxide 28 mEq/L (19-29); Chloride 103 mEq/L (98-109); Glucose 90 mg/dL (70-99); Osmolality,Calculated 277 (280-300); Potassium 3.8 mEq/L (3.5-4.5); Sodium 135 mEq/L (136-145); eGFR For African Americans > 60 (> 60); eGFR For Non-African Americans > 60 (> 60)
--- NOTE | 2017-01-28 11:19 | Discharge Summary ---
<Laya Muhammad - Last Filed: 01/28/17 11:24> Date of Encounter: 01/28/17 Time of Encounter: 11:15 - Discharge Diagnosis (1) Syncope due to orthostatic hypotension Status: Acute (2) GLENN (acute kidney injury) Status: Acute (3) Dehydration Status: Acute (4) Hyperkalemia Status: Acute (5) Hyponatremia Status: Acute (6) COPD (chronic obstructive pulmonary disease) Status: Chronic Qualifiers: COPD type: unspecified COPD Qualified Code(s): J44.9 - Chronic obstructive pulmonary disease, unspecified (7) HTN (hypertension) Status: Chronic Qualifiers: Hypertension type: essential hypertension Qualified Code(s): I10 - Essential (primary) hypertension (8) Rheumatoid arthritis Status: Chronic Qualifiers: Rheumatoid arthritis location: multiple sites Rheumatoid factor presence: unspecified presence Qualified Code(s): M06.9 - Rheumatoid arthritis, unspecified (9) Hypocalcemia Status: Acute - Discharge Medications Prescriptions: Lidocaine Patch [Lidoderm 5% patch] 1 each TP DAILY #30 adh..patch Nicotine Patch [Nicoderm] 7 mg TD DAILY #30 patch.td24 Home Medications: Albuterol Sulfate [Ventolin Hfa] 2 puff IH Q4H PRN 10/13/15 [History] Cyclobenzaprine [Flexeril] 10 mg PO BID 10/13/15 [History] Dicyclomine [Bentyl] 20 mg PO TID 10/13/15 [History] Divalproex (24 HR) [Depakote ER (24 HR)] 750 mg PO HS 10/13/15 [History] Folic Acid 5 mg PO DAILY 10/13/15 [History] Hydroxychloroquine [Plaquenuil] 300 mg PO DAILY 10/13/15 [History] LORazepam [Ativan] 0.5 mg PO BID 10/13/15 [History] Lisinopril [Zestril] 10 mg PO DAILY 10/13/15 [History] Loratadine [Claritin] 10 mg PO DAILY 10/13/15 [History] Omeprazole [PriLOSEC] 20 mg PO DAILY 10/13/15 [History] amLODIPine [Norvasc] 5 mg PO DAILY 10/13/15 [History] Albuterol Neb [AccuNeb] 0.63 mg IH QID 10/01/16 [History] Ferrous Sulfate 325 mg PO DAILY 10/01/16 [History] Fluticasone Propionate Nasal [Flonase] 50 mcg NS DAILY 10/01/16 [History] Gabapentin [Neurontin] 800 mg PO TID 10/01/16 [History] Oxygen 2 l NS HS 10/01/16 [History] Quetiapine Fumarate [Seroquel] 50 mg PO HS 10/01/16 [History] Umeclidinium Brm/Vilanterol Tr [Anoro Ellipta 62.5-25 Mcg INH] 1 each IH DAILY 10/01/16 [History] predniSONE [PredniSONE] 5 mg PO DAILY 10/01/16 [History] Cholecalciferol (Vitamin D3) [Vitamin D3] 3,000 unit PO DAILY 01/26/17 [History] Lovastatin 10 mg PO QPM 01/26/17 [History] Propylene Glycol/Peg 400 [Systane 0.3-0.4% Eye Drops] 2 drop OP Q4H PRN [History] Calcium Carbonate [Tums] 1,000 mg PO TID tab.chew 01/28/17 [Rx] Lidocaine Patch [Lidoderm 5% patch] 1 each TP DAILY #30 adh..patch 01/28/17 [Rx] Nicotine Patch [Nicoderm] 7 mg TD DAILY #30 patch.td24 01/28/17 [Rx] Allergies/Adverse Reactions: Allergies No Known Allergies Allergy (Verified 12/14/16 12:21) Date of admission: 01/26/17 15:02 Primary care physician: Melany Arizmendi Consults: 01/27/17 13:51 Consult to Nutrition [CONS] Routine Comment: Consulting Provider: NUTRITION Reason for Dietary Consult: Diet Education Discharging clinician: Laya Muhammad Anticipated date of discharge: 01/28/17 - Patient Status Disposition: Home, Self-Care Condition: Fair Functional capacity at discharge: independent ambulation Overall status at discharge: patient is progressing back to baseline - Discharge Instructions Instructions: Urinary Tract Infection in Women (DC), Syncope (DC) Follow Up With: Melany Arizmendi, YIN [Primary Care Provider] - 02/07/17 1:30 pm Raman Galeas DO [Partnered Physician] - Forms: ED Satisfaction Letter - Diet and Activity Activity: increase activity as tolerated Diet: advance to your usual diet Interval History: 51 yo female came in for orthostatic hypotension and dehydration with an actue kidney injury. Pt was on daily lasix, and had not had anything PO for several days. repeat orthostatic vitals and symptoms were improved with IVF hydration and increased PO intake since admission. Nutrition was consulted and discussed healthy diet and hydration. methotrexate was discontinued due to GLENN. Pt feels well now and will follow up with PCP and spa associate next week. Hospital course: Ms. Garcia is a 51 year old female - Time Spent with Patient Total time spent providing and/or coordinating discharge services: Less than 30 minutes - Constitutional Vitals: Temp Pulse Resp BP Pulse Ox 97.6 F 67 18 121/70 98 01/28/17 07:14 01/28/17 07:14 01/28/17 11:07 01/28/17 07:14 01/28/17 11:07 General appearance: Present: cooperative, A&O X 3, pleasant, no acute distress, underweight, answers questions appropriately - Head Head exam: Present: atraumatic, normocephalic - Eye Eye exam: Present: PERRL, conjuntiva pink, sclera anicteric Pupils: Present: PERRL - Neck Neck exam general surgery: Present: supple, trachea midline. Absent: lymphadenopathy - Respiratory Respiratory exam: Present: CTAB. Absent: accessory muscle use, rales, rhonchi, wheezes - Cardiovascular Cardiovascular exam: Present: RRR, +S1, +S2. Absent: diastolic murmur, gallop, rubs, systolic murmur - GI/Abdominal GI/Abdominal exam: Present: normal bowel sounds, soft, no peritoneal signs. Absent: distended, tenderness - Extremities Exam Extremities exam: Present: warm, radial pulses palpable and symetrical. Absent : calf tenderness, cyanotic, pedal edema - Neurological Exam Neurological exam: Present: CN II-XII intact, oriented X3, no focal deficits. Absent: pronater drift, facial droop, speech deficit - Skin Skin exam: Present: dry, intact - VTE Documentation of Mechanical Device: Intermittent pneumatic compression device <Benjamín Anaya - Last Filed: 01/28/17 18:54> Date of Encounter: 01/28/17 - Discharge Diagnosis (1) Syncope due to orthostatic hypotension Priority: Primary Status: Acute (2) GLENN (acute kidney injury) Priority: Primary Status: Acute (3) Dehydration Priority: Secondary Status: Acute (4) COPD (chronic obstructive pulmonary disease) Priority: Secondary Status: Chronic Qualifiers: COPD type: unspecified COPD Qualified Code(s): J44.9 - Chronic obstructive pulmonary disease, unspecified (5) Rheumatoid arthritis Priority: Secondary Status: Chronic Qualifiers: Rheumatoid arthritis location: multiple sites Rheumatoid factor presence: unspecified presence Qualified Code(s): M06.9 - Rheumatoid arthritis, unspecified (6) Hyponatremia Priority: Secondary Status: Acute (7) Tobacco abuse Priority: Secondary Status: Chronic Date of admission: 01/26/17 15:02 Primary care physician: Melany Arizmendi Consults: 01/27/17 13:51 Consult to Nutrition [CONS] Routine Comment: Consulting Provider: NUTRITION Reason for Dietary Consult: Diet Education Hospital course: Ms. Garcia is a 51 year old female - Time Spent with Patient Total time spent providing and/or coordinating discharge services: - Constitutional Vitals: Temp Pulse Resp BP Pulse Ox 97.6 F 70 19 126/79 98 01/28/17 11:27 01/28/17 11:27 01/28/17 11:27 01/28/17 11:27 01/28/17 11:07 - Attending Attestation I examined this patient and my medical decision-making was reviewed with the Resident Physician on 01/28/17. I agree with the documented findings, disposition and treatment plan as described except to the extent set forth below. Ms. Garcia is doing better today. She is essentially back to baseline she reports. No fever. Vitals stable. Exam Alert. Comfortable Heart reg No wheeze Plan D/C home today.
[2017-01-28 11:28] VITALS: BP 126/79
[2017-01-28] MEDS: Fluticasone Propionate Nasal 50 MCG/SPRAY BOTTLE NS SCH (13:02)
== END 2017-01-28 14:16 | disposition home or self-care (01) ==
LOC: EMEROO 12:08 → 2NENU 12:08
PROVIDERS: ADMIT Internal Medicine; ATTEND Internal Medicine

== ENCOUNTER 2020-03-12 11:32 | Inpatient (IN) ==
[2020-03-12] MEDS ORDERED: 0.9 % Sodium Chloride 500 ML IVC ONE ×2 (11:59→12:23)
[2020-03-12] MEDS ORDERED: DilTIAZem 50 MG/50 ML IV.SOLN IVC SCH (12:00)
[2020-03-12 12:10] LABS: Basophils % 0.3 %; Eosinophils % 0.1 %; Hematocrit 34.6 % (35.3-44.9); Hemoglobin 11.4 g/dL (11.5-15.4); Immature Granulocytes % 0.6 % (0-4); Lymphocytes % 9.2 %; Mean Corpuscular HGB Conc 32.9 g/dL (31.6-35.5); Mean Corpuscular Hemoglobin 32.2 pg (28.0-33.3); Mean Corpuscular Volume 97.7 fL (83.0-100.0); Mean Platelet Volume 9.4 fL (9.4-12.4); Monocytes # 0.3 K/mcL (0.0-1.3); Monocytes % 3.1 %; Platelet Count 333 K/mcL (140-400); Red Blood Count 3.54 M/mcL (3.82-4.97); Red Cell Distribution Width 14.2 % (11.5-14.5); Segmented Neutrophils % 86.7 %; White Blood Count 10.4 K/mcL (4.3-11.1)
[2020-03-12 12:46] LABS: BUN/Creatinine Ratio 16 (6-26); Blood Urea Nitrogen 16 mg/dL (6-20); Calcium 8.7 mg/dL (8.6-10.3); Carbon Dioxide 23 mEq/L (23-29); Chloride 95 mEq/L (98-107); Glucose 102 mg/dL (70-105); Osmolality,Calculated 273 (280-300); Potassium 4.2 mEq/L (3.5-5.1); Sodium 131 mEq/L (136-145); Troponin I 0.03 ng/mL (< 0.04); eGFR For African Americans > 60 (> 60); eGFR For Non-African Americans 57 (> 60)
[2020-03-12 12:47] LABS: Thyroid Stimulating Hormone 3.398 mcIU/mL (0.340-5.600)
[2020-03-12] MEDS ORDERED: Perflutren Lipid Microsphere 1.3 ML in 0.9 % Sodium Chloride 8.7 ML IVP PRN ×2 (13:54→14:00)
[2020-03-12] MEDS ORDERED: Ondansetron 4 MG/2 ML VIAL IVP PRN (14:15)
[2020-03-12] MEDS ORDERED: Naloxone 0.4 MG/ML INJ IVP PRN (14:15)
[2020-03-12] MEDS ORDERED: Furosemide 20 MG TABLET PO ONE (15:40)
[2020-03-12] MEDS ORDERED: Ipratropium/Albuterol Neb 3 ML IH PRN (15:56)
[2020-03-12] MEDS: DilTIAZem CD (24hr) 120 MG CAP.ER.24H PO SCH (15:57)
[2020-03-12] MEDS: predniSONE 20 MG TABLET PO SCH (15:57)
[2020-03-12] MEDS: *HR* Heparin 5,000 UNIT/ML VIAL SQ SCH (17:06)
[2020-03-12] MEDS: QUEtiapine Fumarate 25 MG TABLET PO SCH (20:25)
[2020-03-12] MEDS: sulfaSALAzine 500 MG TABLET PO SCH (20:25)
[2020-03-13 02:49] LABS: Basophils % 0.1 %; Hematocrit 28.6 % (35.3-44.9); Immature Granulocytes % 0.4 % (0-4); Lymphocytes # 0.3 K/mcL (0.6-4.6); Lymphocytes % 4.1 %; Mean Corpuscular HGB Conc 33.2 g/dL (31.6-35.5); Mean Corpuscular Hemoglobin 32.8 pg (28.0-33.3); Mean Corpuscular Volume 98.6 fL (83.0-100.0); Mean Platelet Volume 9.8 fL (9.4-12.4); Monocytes # 0.3 K/mcL (0.0-1.3); Monocytes % 3.7 %; Neutrophils # 6.7 K/mcL (1.6-8.9); Platelet Count 246 K/mcL (140-400); Red Cell Distribution Width 14.2 % (11.5-14.5); Segmented Neutrophils % 91.7 %; White Blood Count 7.3 K/mcL (4.3-11.1)
[2020-03-13 02:50] LABS: Hemoglobin 9.5 g/dL (11.5-15.4)
[2020-03-13 03:07] LABS: BUN/Creatinine Ratio 20 (6-26); Blood Urea Nitrogen 17 mg/dL (6-20); Carbon Dioxide 24 mEq/L (23-29); Chloride 98 mEq/L (98-107); Glucose 110 mg/dL (70-105); Magnesium 2.1 mg/dL (1.6-2.6); Osmolality,Calculated 274 (280-300); Potassium 4.5 mEq/L (3.5-5.1); Sodium 131 mEq/L (136-145); eGFR For African Americans > 60 (> 60); eGFR For Non-African Americans > 60 (> 60)
[2020-03-13] MEDS: *HR* Heparin 5,000 UNIT/ML VIAL SQ SCH ×2 (05:51→16:36)
[2020-03-13] MEDS ORDERED: *HR* FentaNYL (PF) 250 MCG/5 ML VIAL ONE (07:09)
[2020-03-13] MEDS ORDERED: *HR* Rocuronium Bromide 50 MG/5 ML VIAL ONE (07:09)
[2020-03-13] MEDS ORDERED: *HR* PHENYLEPHRINE 1,000 MCG/10 ML SYRINGE IVP ONE (07:09)
[2020-03-13] MEDS ORDERED: *HR* Etomidate 20 MG/10 ML AMPUL IVP ONE (07:09)
[2020-03-13] MEDS ORDERED: *HR* Midazolam HCl 5 MG/5 ML VIAL IVP ONE (07:09)
[2020-03-13] MEDS: DilTIAZem CD (24hr) 120 MG CAP.ER.24H PO SCH ×4 (07:38→08:45)
[2020-03-13] MEDS ORDERED: Ondansetron 4 MG/2 ML VIAL IVP ONE (08:06)
[2020-03-13] MEDS ORDERED: *HR* HYDROmorphone PF 0.5 MG/0.5 ML SYRINGE IVP PRN (08:06)
[2020-03-13] MEDS ORDERED: *HR* OxyCODONE Immed Rel 5 MG TABLET PO PRN (08:06)
[2020-03-13] MEDS ORDERED: Ringers Solution, Lactated 1,000 ML IVC SCH (08:15)
[2020-03-13] MEDS ORDERED: *HR* FentaNYL (PF) 100 MCG/2 ML VIAL IVP PRN (09:15)
[2020-03-13] MEDS: Budesonide/Formoterol 80/4.5 1 PUFF INH IH SCH (09:57)
[2020-03-13] MEDS: Tiotropium 18 MCG inhalation IH SCH (09:57)
[2020-03-13] MEDS: Folic Acid 1 MG TABLET PO SCH (10:04)
[2020-03-13] MEDS: Cholecalciferol (D-3) 1,000 UNIT (25MCG) TABLET PO SCH (10:04)
[2020-03-13] MEDS: predniSONE 20 MG TABLET PO SCH (10:05)
[2020-03-13] MEDS: FLUoxetine 20 MG CAPSULE PO SCH (10:05)
[2020-03-13] MEDS: 0.9 % Sodium Chloride w KCl 20 MEQ/1,000 ML MLS IVC SCH (10:05)
[2020-03-13] MEDS: sulfaSALAzine 500 MG TABLET PO SCH ×2 (10:06→21:34)
[2020-03-13 10:52] LABS: Hematocrit 31.2 % (35.3-44.9); Hemoglobin 10.3 g/dL (11.5-15.4)
[2020-03-13 13:06] LABS: Appearance of Pericardial Fl Cloudy (Clear)
[2020-03-13] MEDS ORDERED: Colchicine 0.6 MG TABLET PO ONE (13:47)
[2020-03-13] MEDS: CeFAZolin 2 GM/120 ML BAG IVPB SCH ×2 (16:37→23:39)
[2020-03-13] MEDS: TYMLOS SQ SCH (16:38)
[2020-03-13] MEDS ORDERED: Colchicine 0.6 MG TABLET PO SCH (21:00)
[2020-03-13] MEDS: QUEtiapine Fumarate 25 MG TABLET PO SCH (23:39)
[2020-03-14] MEDS: *HR* Heparin 5,000 UNIT/ML VIAL SQ SCH ×2 (05:11→19:19)
[2020-03-14] MEDS: 0.9 % Sodium Chloride w KCl 20 MEQ/1,000 ML MLS IVC SCH (05:11)
[2020-03-14 05:18] LABS: Hematocrit 31.7 % (35.3-44.9); Hemoglobin 10.4 g/dL (11.5-15.4); Immature Granulocytes % 0.4 % (0-4); Lymphocytes # 0.4 K/mcL (0.6-4.6); Lymphocytes % 4.9 %; Mean Corpuscular HGB Conc 32.8 g/dL (31.6-35.5); Mean Corpuscular Hemoglobin 32.8 pg (28.0-33.3); Mean Platelet Volume 9.6 fL (9.4-12.4); Monocytes # 0.4 K/mcL (0.0-1.3); Monocytes % 4.9 %; Neutrophils # 8.1 K/mcL (1.6-8.9); Platelet Count 307 K/mcL (140-400); Red Blood Count 3.17 M/mcL (3.82-4.97); Segmented Neutrophils % 89.8 %
[2020-03-14 05:39] LABS: BUN/Creatinine Ratio 26 (6-26); Blood Urea Nitrogen 23 mg/dL (6-20); Calcium 8.1 mg/dL (8.6-10.3); Carbon Dioxide 27 mEq/L (23-29); Chloride 101 mEq/L (98-107); Glucose 123 mg/dL (70-105); Osmolality,Calculated 281 (280-300); Potassium 4.7 mEq/L (3.5-5.1); Sodium 133 mEq/L (136-145); eGFR For African Americans > 60 (> 60); eGFR For Non-African Americans > 60 (> 60)
[2020-03-14] MEDS: Budesonide/Formoterol 80/4.5 1 PUFF INH IH SCH (07:18)
[2020-03-14] MEDS: Tiotropium 18 MCG inhalation IH SCH (07:18)
[2020-03-14] MEDS: Aspirin 325 MG TABLET PO SCH (08:32)
[2020-03-14] MEDS: predniSONE 20 MG TABLET PO SCH (08:33)
[2020-03-14] MEDS: Folic Acid 1 MG TABLET PO SCH (08:33)
[2020-03-14] MEDS: Cholecalciferol (D-3) 1,000 UNIT (25MCG) TABLET PO SCH (08:33)
[2020-03-14] MEDS: FLUoxetine 20 MG CAPSULE PO SCH (08:34)
[2020-03-14] MEDS: sulfaSALAzine 500 MG TABLET PO SCH ×2 (08:34→20:34)
[2020-03-14] MEDS: Colchicine 0.6 MG TABLET PO SCH (08:34)
[2020-03-14] MEDS: TYMLOS SQ SCH (10:57)
[2020-03-14] MEDS: QUEtiapine Fumarate 25 MG TABLET PO SCH (20:34)
[2020-03-15] MEDS: 0.9 % Sodium Chloride w KCl 20 MEQ/1,000 ML MLS IVC SCH (00:10)
[2020-03-15] MEDS: *HR* Heparin 5,000 UNIT/ML VIAL SQ SCH ×2 (05:38→17:52)
[2020-03-15] MEDS: Tiotropium 18 MCG inhalation IH SCH (08:33)
[2020-03-15] MEDS: Budesonide/Formoterol 80/4.5 1 PUFF INH IH SCH (08:33)
[2020-03-15] MEDS ORDERED: *HR* HYDROcodone/Acet 5/325 mg TABLET PO PRN (08:55)
[2020-03-15] MEDS: TYMLOS SQ SCH (09:02)
[2020-03-15] MEDS: Cholecalciferol (D-3) 1,000 UNIT (25MCG) TABLET PO SCH (09:03)
[2020-03-15] MEDS: sulfaSALAzine 500 MG TABLET PO SCH ×2 (09:03→20:15)
[2020-03-15] MEDS: FLUoxetine 20 MG CAPSULE PO SCH (09:03)
[2020-03-15] MEDS: Aspirin 325 MG TABLET PO SCH (09:03)
[2020-03-15] MEDS: Folic Acid 1 MG TABLET PO SCH (09:04)
[2020-03-15] MEDS: Colchicine 0.6 MG TABLET PO SCH (09:04)
[2020-03-15] MEDS: DilTIAZem CD (24hr) 120 MG CAP.ER.24H PO SCH (09:04)
[2020-03-15] MEDS: QUEtiapine Fumarate 25 MG TABLET PO SCH (20:15)
[2020-03-16] MEDS: *HR* Heparin 5,000 UNIT/ML VIAL SQ SCH (05:23)
[2020-03-16 07:49] VITALS: BP 136/80
[2020-03-16] MEDS: sulfaSALAzine 500 MG TABLET PO SCH (08:15)
[2020-03-16] MEDS: Aspirin 325 MG TABLET PO SCH (08:15)
[2020-03-16] MEDS: Folic Acid 1 MG TABLET PO SCH (08:15)
[2020-03-16] MEDS: DilTIAZem CD (24hr) 120 MG CAP.ER.24H PO SCH (08:15)
[2020-03-16] MEDS: FLUoxetine 20 MG CAPSULE PO SCH (08:15)
[2020-03-16] MEDS: Colchicine 0.6 MG TABLET PO SCH (08:15)
[2020-03-16] MEDS: Cholecalciferol (D-3) 1,000 UNIT (25MCG) TABLET PO SCH (08:16)
[2020-03-16] MEDS: TYMLOS SQ SCH (08:16)
[2020-03-16] MEDS: Tiotropium 18 MCG inhalation IH SCH (10:26)
[2020-03-16] MEDS: Budesonide/Formoterol 80/4.5 1 PUFF INH IH SCH (10:26)
[2020-03-17] MEDS ORDERED: *HR* Methotrexate 2.5 MG TABLET PO SCH (09:00)
== END 2020-03-16 11:02 | disposition home or self-care (01) | DRG 271 ==
LOC: 2ANU 11:32 → EMEROOARM 11:32 → SUATTDRO 14:16 → 2ANU 14:18 → 2NNU 03-13 09:37
PROVIDERS: ADMIT Internal Medicine; ATTEND Internal Medicine

== ENCOUNTER 2021-05-14 11:22 | Inpatient (IN) ==
[2021-05-14] MEDS ORDERED: CeFAZolin Syr 2,000MG/20 ML 2,000 MG/20 ML SYRINGE IVPB ONE (11:52)
[2021-05-14] MEDS ORDERED: Ringers Solution, Lactated 1,000 ML IVC SCH ×2 (12:00→12:45)
[2021-05-14] MEDS ORDERED: Ondansetron 4 MG/2 ML VIAL IVP PRN ×2 (12:02→15:55)
[2021-05-14] MEDS ORDERED: Famotidine 20 MG/2 ML VIAL IVP ONE (12:02)
[2021-05-14] MEDS ORDERED: Albuterol 2.5 MG/3 ML NEBULIZER IH PRN (12:02)
[2021-05-14] MEDS ORDERED: *HR* HYDROmorphone PF 0.5 MG/0.5 ML SYRINGE IVP PRN (12:02)
[2021-05-14] MEDS ORDERED: *HR* OxyCODONE Immed Rel 5 MG TABLET PO PRN (12:02)
[2021-05-14] MEDS ORDERED: Acetaminophen IV 1,000 MG/100 ML BAG IVPB ONE (12:02)
[2021-05-14] MEDS ORDERED: Gabapentin 100 MG CAPSULE PO ONE (12:15)
[2021-05-14] MEDS ORDERED: *HR* FentaNYL (PF) 100 MCG/2 ML VIAL ONE (13:10)
[2021-05-14] MEDS ORDERED: *HR* Propofol 200 MG/20 ML VIAL IVP ONE (13:10)
[2021-05-14] MEDS ORDERED: *HR* Midazolam HCl 2 MG/2 ML VIAL ONE (13:10)
[2021-05-14] MEDS ORDERED: Lidocaine -MPF 2% 2 ML VIAL ONE (13:12)
[2021-05-14] MEDS ORDERED: Ondansetron 4 MG/2 ML VIAL ONE (13:12)
[2021-05-14] MEDS ORDERED: *HR* Rocuronium Bromide 50 MG/5 ML VIAL ONE (13:12)
[2021-05-14] MEDS ORDERED: Lidocaine HCL 4 ML Topical Solution (Laryng-O-Jet Kit Sterile Pak) TP ONE (13:43)
[2021-05-14] MEDS ORDERED: *HR* Norepinephrine 4 MG/4 ML VIAL IVC ONE (14:25)
[2021-05-14] MEDS ORDERED: Sugammadex Sodium 200 MG/2 ML VIAL IV ONE (14:38)
[2021-05-14] MEDS ORDERED: Naloxone 0.4 MG/ML INJ IVP PRN (15:55)
[2021-05-14] MEDS: Ipratropium/Albuterol Neb 3 ML IH SCH ×3 (16:26→23:51)
[2021-05-14] MEDS: 0.9 % Sodium Chloride 1,000 ML IVC SCH (16:45)
[2021-05-14] MEDS: Gabapentin 300 MG CAPSULE PO SCH ×2 (16:47→19:50)
[2021-05-14] MEDS: Famotidine 20 MG TABLET PO SCH (19:50)
[2021-05-14] MEDS: Sennosides/Docusate Sodium TABLET PO SCH (19:50)
[2021-05-14] MEDS: QUEtiapine Fumarate 25 MG TABLET PO SCH (19:50)
[2021-05-14] MEDS: *HR* HYDROcodone/Acet 5/325 mg TABLET PO PRN (19:50)
[2021-05-14] MEDS: *HR* Heparin 5,000 UNIT/ML VIAL SQ SCH (22:11)
[2021-05-15] MEDS: Ipratropium/Albuterol Neb 3 ML IH SCH ×5 (03:29→20:16)
[2021-05-15] MEDS: *HR* HYDROcodone/Acet 5/325 mg TABLET PO PRN ×2 (05:54→13:33)
[2021-05-15] MEDS: 0.9 % Sodium Chloride 1,000 ML IVC SCH (05:55)
[2021-05-15] MEDS: *HR* Heparin 5,000 UNIT/ML VIAL SQ SCH ×3 (05:55→20:55)
[2021-05-15 06:54] LABS: % Iron Saturation 11 % (15-50); BUN/Creatinine Ratio 16 (6-26); Blood Urea Nitrogen 14 mg/dL (6-20); Calcium 8.7 mg/dL (8.6-10.3); Carbon Dioxide 21 mEq/L (23-29); Chloride 103 mEq/L (98-107); Glucose 124 mg/dL (70-105); Iron 24 mcg/dL (50-170); Osmolality,Calculated 278 (280-300); Potassium 4.9 mEq/L (3.5-5.1); Sodium 133 mEq/L (136-145); Transferrin 158 mg/dL (203-362); eGFR For African Americans > 60 (> 60); eGFR For Non-African Americans > 60 (> 60)
[2021-05-15 07:07] LABS: Hematocrit 28.8 % (35.3-44.9); Hemoglobin 9.2 g/dL (11.5-15.4); Mean Corpuscular HGB Conc 31.9 g/dL (31.6-35.5); Mean Corpuscular Hemoglobin 32.5 pg (28.0-33.3); Mean Corpuscular Volume 101.8 fL (83.0-100.0); Mean Platelet Volume 9.5 fL (9.4-12.4); Platelet Count 253 K/mcL (140-400); Red Blood Count 2.83 M/mcL (3.82-4.97); White Blood Count 8.5 K/mcL (4.3-11.1)
[2021-05-15] MEDS: Gabapentin 300 MG CAPSULE PO SCH ×3 (08:52→20:55)
[2021-05-15] MEDS: Famotidine 20 MG TABLET PO SCH ×2 (08:52→20:55)
[2021-05-15] MEDS: Folic Acid 1 MG TABLET PO SCH (08:52)
[2021-05-15] MEDS: Aspirin Enteric Coated 81 MG Tablet PO SCH (08:52)
[2021-05-15] MEDS: Sennosides/Docusate Sodium TABLET PO SCH ×2 (08:53→20:55)
[2021-05-15] MEDS: DilTIAZem CD (24hr) 120 MG CAP.ER.24H PO SCH (08:53)
[2021-05-15] MEDS: FLUoxetine 20 MG CAPSULE PO SCH (08:53)
[2021-05-15] MEDS: lisinopriL 10 MG TABLET PO SCH (08:53)
[2021-05-15] MEDS ORDERED: Iron Sucrose Complex 400 MG in 0.9 % Sodium Chloride 250 ML IVPB ONE (08:58)
[2021-05-15] MEDS: Budesonide/Formoterol 160/4.5 1 PUFF INH IH SCH ×2 (09:29→20:17)
[2021-05-15] MEDS: Tiotropium 10 INH DOSE IH SCH (09:30)
[2021-05-15] MEDS: QUEtiapine Fumarate 25 MG TABLET PO SCH (20:55)
[2021-05-16] MEDS: Ipratropium/Albuterol Neb 3 ML IH SCH ×2 (05:07→10:52)
[2021-05-16] MEDS: *HR* Heparin 5,000 UNIT/ML VIAL SQ SCH (05:17)
[2021-05-16 08:37] VITALS: BP 130/76; PULSE 87; TEMP 98.2
[2021-05-16] MEDS: Famotidine 20 MG TABLET PO SCH (09:02)
[2021-05-16] MEDS: DilTIAZem CD (24hr) 120 MG CAP.ER.24H PO SCH (09:02)
[2021-05-16] MEDS: Sennosides/Docusate Sodium TABLET PO SCH (09:02)
[2021-05-16] MEDS: Gabapentin 300 MG CAPSULE PO SCH (09:02)
[2021-05-16] MEDS: Folic Acid 1 MG TABLET PO SCH (09:02)
[2021-05-16] MEDS: lisinopriL 10 MG TABLET PO SCH (09:02)
[2021-05-16] MEDS: FLUoxetine 20 MG CAPSULE PO SCH (09:03)
[2021-05-16] MEDS: Aspirin Enteric Coated 81 MG Tablet PO SCH (09:03)
[2021-05-16] MEDS: Tiotropium 10 INH DOSE IH SCH (10:52)
[2021-05-16] MEDS: Budesonide/Formoterol 160/4.5 1 PUFF INH IH SCH (10:52)
[2021-05-16 10:55] VITALS: O2SAT 96
== END 2021-05-16 12:05 | disposition home or self-care (01) | DRG 164 ==
LOC: SAMDAY 11:22 → 2NNU 15:38 → 2ANU 05-16 00:08
PROVIDERS: ADMIT Thoracic Surgery (Cardiothoracic Vascular Surgery); ATTEND Thoracic Surgery (Cardiothoracic Vascular Surgery)

== ENCOUNTER 2021-10-12 14:25 | Inpatient (IN) ==
[2021-10-12 17:46] LABS: Basophils % 0.6 %; Eosinophils # 0.1 K/mcL (0.0-0.6); Eosinophils % 2.1 %; Hematocrit 29.7 % (35.3-44.9); Hemoglobin 9.8 g/dL (11.5-15.4); Immature Granulocytes % 0.9 % (0-4); Lymphocytes % 13.5 %; Mean Corpuscular Hemoglobin 32.7 pg (28.0-33.3); Mean Platelet Volume 9.5 fL (9.4-12.4); Monocytes # 0.3 K/mcL (0.0-1.3); Monocytes % 9.8 %; Neutrophils # 2.4 K/mcL (1.6-8.9); Platelet Count 162 K/mcL (140-400); Red Cell Distribution Width 19.8 % (11.5-14.5); Segmented Neutrophils % 73.1 %; White Blood Count 3.3 K/mcL (4.3-11.1)
[2021-10-12 17:53] LABS: Lymphocytes # 0.5 K/mcL (0.6-4.6)
[2021-10-12 18:10] LABS: Influenza A PCR Negative (Negative); Influenza B PCR Negative (Negative); Resp. Syncytial Virus PCR Negative (Negative)
[2021-10-12 18:11] LABS: Alanine Aminotransferase 17 Units/L (7-52); Albumin 3.2 g/dL (3.5-5.7); Albumin/Globulin Ratio 1.1 (1.1-2.2); Alkaline Phosphatase 135 Units/L (34-104); Aspartate Amino Transferase 31 Units/L (13-39); BUN/Creatinine Ratio 15 (6-26); Bilirubin,Direct 0.1 mg/dL (0.0-0.2); Bilirubin,Indirect 0.6 mg/dL (0.0-1.0); Bilirubin,Total 0.7 mg/dL (0.3-1.0); Blood Urea Nitrogen 13 mg/dL (6-20); Carbon Dioxide 20 mEq/L (23-29); Chloride 97 mEq/L (98-107); Glucose 81 mg/dL (70-105); Osmolality,Calculated 263 (280-300); Potassium 4.5 mEq/L (3.5-5.1); Sodium 127 mEq/L (136-145); Total Protein 6.2 g/dL (6.4-8.9); Troponin I 0.04 ng/mL (< 0.04); eGFR For African Americans > 60 (> 60); eGFR For Non-African Americans > 60 (> 60)
[2021-10-12 18:23] LABS: SARS-CoV-2 by PCR (In House) Positive (Negative)
[2021-10-12 18:28] LABS: Platelet Estimate Normal (Normal)
[2021-10-12] MEDS ORDERED: Aspirin 325 MG TABLET PO ONE (20:04)
[2021-10-12] MEDS ORDERED: Naloxone 0.4 MG/ML INJ IVP PRN (20:10)
[2021-10-12] MEDS ORDERED: *HR* HYDROcodone/Acet 5/325 mg TABLET PO PRN (20:10)
[2021-10-12] MEDS ORDERED: *HR* Promethazine 25 MG/ML VIAL IM PRN (20:10)
[2021-10-12] MEDS ORDERED: Ondansetron 4 MG/2 ML VIAL IVP PRN (20:10)
[2021-10-12] MEDS ORDERED: Melatonin 3 MG TABLET PO PRN (20:10)
[2021-10-12] MEDS ORDERED: Isovue-370 500 ML BOTTLE IVP ONE (21:10)
[2021-10-12] MEDS ORDERED: Dexamethasone Sodium Phos/PF 10 MG/ML VIAL IVP ONE (21:11)
[2021-10-12] MEDS: 0.9 % Sodium Chloride 1,000 ML IVC SCH ×2 (21:22→22:45)
[2021-10-13 03:15] LABS: Basophils % 0.5 %
[2021-10-13 03:16] LABS: Mean Corpuscular HGB Conc 32.1 g/dL (31.6-35.5); Mean Corpuscular Hemoglobin 32.5 pg (28.0-33.3); Mean Corpuscular Volume 101.1 fL (83.0-100.0); Mean Platelet Volume 9.6 fL (9.4-12.4); Platelet Count 148 K/mcL (140-400); Red Blood Count 2.77 M/mcL (3.82-4.97); Red Cell Distribution Width 19.7 % (11.5-14.5); Segmented Neutrophils % 85.5 %
[2021-10-13 03:17] LABS: Eosinophils % 0.5 %; Lymphocytes # 0.2 K/mcL (0.6-4.6); Monocytes # 0.1 K/mcL (0.0-1.3); Monocytes % 4.5 %; Neutrophils # 1.7 K/mcL (1.6-8.9)
[2021-10-13 03:32] LABS: Alanine Aminotransferase 16 Units/L (7-52); Albumin/Globulin Ratio 1.1 (1.1-2.2); Alkaline Phosphatase 123 Units/L (34-104); Aspartate Amino Transferase 30 Units/L (13-39); BUN/Creatinine Ratio 18 (6-26); Bilirubin,Total 0.5 mg/dL (0.3-1.0); Blood Urea Nitrogen 14 mg/dL (6-20); C-Reactive Protein 79 mg/L (Less than 10); Calcium 7.5 mg/dL (8.6-10.3); Carbon Dioxide 20 mEq/L (23-29); Chloride 102 mEq/L (98-107); Chol/HDL Ratio 3.1 (0-4.9); Cholesterol 116 mg/dL (< 200); Globulin 2.8 g/dL (2.4-3.5); Glucose 117 mg/dL (70-105); HDL Cholesterol 38 mg/dL (40-59); LDL Cholesterol,Calculated 59 mg/dL (< 100); Lactate Dehydrogenase 168 Units/L (140-271); Magnesium 1.9 mg/dL (1.6-2.6); Osmolality,Calculated 272 (280-300); Potassium 3.8 mEq/L (3.5-5.1); Sodium 130 mEq/L (136-145); Total Protein 5.8 g/dL (6.4-8.9); Triglycerides 94 mg/dL (< 150); eGFR For African Americans > 60 (> 60); eGFR For Non-African Americans > 60 (> 60)
[2021-10-13 04:01] LABS: INR 1.1
[2021-10-13] MEDS ORDERED: Azithromycin 500 MG in 0.9 % Sodium Chloride 250 ML IVPB SCH (05:00)
[2021-10-13] MEDS ORDERED: *HR* Enoxaparin 40 MG/0.4 ML SYRINGE SQ SCH (06:00)
[2021-10-13] MEDS ORDERED: Cefepime HCl 2,000 MG in 0.9 % Sodium Chloride Mini Bag 100 ML IVPB SCH (08:00)
[2021-10-13] MEDS: Dexamethasone Sodium Phos/PF 10 MG/ML VIAL IVP SCH (08:21)
[2021-10-13] MEDS: FLUoxetine 20 MG CAPSULE PO SCH (08:22)
[2021-10-13] MEDS: Aspirin Enteric Coated 81 MG Tablet PO SCH (08:22)
[2021-10-13] MEDS: DilTIAZem CD (24hr) 120 MG CAP.ER.24H PO SCH (08:22)
[2021-10-13] MEDS: Tiotropium 10 INH DOSE IH SCH (09:57)
[2021-10-13] MEDS ORDERED: Budesonide/Formoterol 160/4.5 1 PUFF INH IH SCH (10:00)
[2021-10-13] MEDS: Budesonide/Formoterol 160/4.5 1 PUFF INH IH SCH ×3 (15:39→20:42)
[2021-10-13] MEDS: QUEtiapine Fumarate 25 MG TABLET PO SCH (20:35)
[2021-10-13] MEDS: Cefepime HCl 2,000 MG in 0.9 % Sodium Chloride Mini Bag 100 ML IVPB SCH (20:36)
[2021-10-13] MEDS: Acetaminophen 325 MG TABLET PO PRN (22:00)
[2021-10-14] MEDS: *HR* Enoxaparin 30 MG/0.3 ML SYRINGE SQ SCH (06:11)
[2021-10-14] MEDS: Tiotropium 10 INH DOSE IH SCH (07:34)
[2021-10-14] MEDS: Budesonide/Formoterol 160/4.5 1 PUFF INH IH SCH ×2 (07:34→21:19)
[2021-10-14] MEDS: Dexamethasone Sodium Phos/PF 10 MG/ML VIAL IVP SCH (08:21)
[2021-10-14] MEDS: Cefepime HCl 2,000 MG in 0.9 % Sodium Chloride Mini Bag 100 ML IVPB SCH ×2 (08:22→21:34)
[2021-10-14] MEDS: FLUoxetine 20 MG CAPSULE PO SCH (08:22)
[2021-10-14] MEDS: DilTIAZem CD (24hr) 120 MG CAP.ER.24H PO SCH (08:22)
[2021-10-14] MEDS: Azithromycin 250 MG TABLET PO SCH (08:22)
[2021-10-14] MEDS: Aspirin Enteric Coated 81 MG Tablet PO SCH (08:22)
[2021-10-14] MEDS: lisinopriL 10 MG TABLET PO SCH (09:50)
[2021-10-14] MEDS: Acetaminophen 325 MG TABLET PO PRN (16:31)
[2021-10-14] MEDS: QUEtiapine Fumarate 25 MG TABLET PO SCH (21:34)
[2021-10-15 07:01] LABS: Basophils % 0.2 %; Eosinophils % 0.4 %; Hematocrit 28.7 % (35.3-44.9); Hemoglobin 9.2 g/dL (11.5-15.4); Lymphocytes # 0.6 K/mcL (0.6-4.6); Lymphocytes % 10.9 %; Mean Corpuscular HGB Conc 32.1 g/dL (31.6-35.5); Mean Corpuscular Hemoglobin 32.3 pg (28.0-33.3); Mean Corpuscular Volume 100.7 fL (83.0-100.0); Mean Platelet Volume 9.4 fL (9.4-12.4); Monocytes # 0.6 K/mcL (0.0-1.3); Monocytes % 11.5 %; Platelet Count 237 K/mcL (140-400); Red Blood Count 2.85 M/mcL (3.82-4.97); Red Cell Distribution Width 19.6 % (11.5-14.5)
[2021-10-15 07:32] LABS: BUN/Creatinine Ratio 18 (6-26); Blood Urea Nitrogen 13 mg/dL (6-20); Calcium 8.6 mg/dL (8.6-10.3); Carbon Dioxide 24 mEq/L (23-29); Chloride 102 mEq/L (98-107); Glucose 79 mg/dL (70-105); Osmolality,Calculated 281 (280-300); Potassium 3.6 mEq/L (3.5-5.1); Sodium 136 mEq/L (136-145); eGFR For African Americans > 60 (> 60); eGFR For Non-African Americans > 60 (> 60)
[2021-10-15] MEDS: Budesonide/Formoterol 160/4.5 1 PUFF INH IH SCH ×2 (07:50→20:00)
[2021-10-15] MEDS: Tiotropium 10 INH DOSE IH SCH (07:55)
[2021-10-15 08:39] LABS: White Blood Count 5.2 K/mcL (4.3-11.1)
[2021-10-15 08:47] LABS: Platelet Estimate Normal (Normal); Reactive Lymphocytes Present (Not Present)
[2021-10-15] MEDS ORDERED: *HR* EPINEPHrine 1 MG/10 ML SYRINGE INTRATRACH PRN (10:35)
[2021-10-15] MEDS: Azithromycin 250 MG TABLET PO SCH (11:14)
[2021-10-15] MEDS: DilTIAZem CD (24hr) 120 MG CAP.ER.24H PO SCH (11:14)
[2021-10-15] MEDS: lisinopriL 10 MG TABLET PO SCH (11:14)
[2021-10-15] MEDS: Aspirin Enteric Coated 81 MG Tablet PO SCH (11:14)
[2021-10-15] MEDS: FLUoxetine 20 MG CAPSULE PO SCH (11:14)
[2021-10-15] MEDS: Cefepime HCl 2,000 MG in 0.9 % Sodium Chloride Mini Bag 100 ML IVPB SCH ×2 (11:14→20:45)
[2021-10-15] MEDS: Dexamethasone Sodium Phos/PF 10 MG/ML VIAL IVP SCH (11:14)
[2021-10-15 14:26] LABS: Source of Body Fluid LUL
[2021-10-15 15:35] LABS: Appearance of Body Fluid Clear (Clear); Volume of Body Fluid 22 mL
[2021-10-15] MEDS: QUEtiapine Fumarate 25 MG TABLET PO SCH (20:45)
[2021-10-16 03:14] LABS: Hematocrit 25.7 % (35.3-44.9); Hemoglobin 8.2 g/dL (11.5-15.4); Mean Corpuscular HGB Conc 31.9 g/dL (31.6-35.5); Mean Corpuscular Hemoglobin 31.8 pg (28.0-33.3); Mean Corpuscular Volume 99.6 fL (83.0-100.0); Mean Platelet Volume 8.9 fL (9.4-12.4); Platelet Count 233 K/mcL (140-400); Red Blood Count 2.58 M/mcL (3.82-4.97); Red Cell Distribution Width 19.5 % (11.5-14.5); White Blood Count 5.1 K/mcL (4.3-11.1)
[2021-10-16 03:31] LABS: BUN/Creatinine Ratio 22 (6-26); Blood Urea Nitrogen 15 mg/dL (6-20); Calcium 8.1 mg/dL (8.6-10.3); Carbon Dioxide 26 mEq/L (23-29); Chloride 102 mEq/L (98-107); Glucose 95 mg/dL (70-105); Osmolality,Calculated 279 (280-300); Potassium 3.7 mEq/L (3.5-5.1); Sodium 134 mEq/L (136-145); eGFR For African Americans > 60 (> 60); eGFR For Non-African Americans > 60 (> 60)
[2021-10-16 03:48] LABS: Lymphocytes # 0.8 K/mcL (0.6-4.6); Monocytes # 0.3 K/mcL (0.0-1.3); Platelet Estimate Normal (Normal)
[2021-10-16] MEDS: *HR* Enoxaparin 30 MG/0.3 ML SYRINGE SQ SCH (05:00)
[2021-10-16] MEDS: Tiotropium 10 INH DOSE IH SCH (07:57)
[2021-10-16] MEDS: Budesonide/Formoterol 160/4.5 1 PUFF INH IH SCH (07:58)
[2021-10-16] MEDS: Azithromycin 250 MG TABLET PO SCH (08:23)
[2021-10-16] MEDS: Aspirin Enteric Coated 81 MG Tablet PO SCH (08:23)
[2021-10-16] MEDS: DilTIAZem CD (24hr) 120 MG CAP.ER.24H PO SCH (08:23)
[2021-10-16] MEDS: lisinopriL 10 MG TABLET PO SCH (08:23)
[2021-10-16] MEDS: FLUoxetine 20 MG CAPSULE PO SCH (08:23)
[2021-10-16] MEDS: Cefepime HCl 2,000 MG in 0.9 % Sodium Chloride Mini Bag 100 ML IVPB SCH (08:24)
[2021-10-16 11:14] VITALS: BP 152/69; PULSE 93; TEMP 98.6; O2SAT 98
== END 2021-10-16 14:52 | DRG 166 ==
LOC: 2ANU 14:25 → EMEROOARM 14:25 → SUATTDRO 20:12 → 2ANU 22:00
PROVIDERS: ADMIT Internal Medicine; ATTEND Internal Medicine

== ENCOUNTER 2022-02-23 11:15 | Inpatient (IN) ==
[2022-02-23] MEDS ORDERED: Iopamidol - 370 500 ML MLS IVP ONE (11:58)
[2022-02-23 12:35] LABS: Basophils % 0.3 %; Eosinophils # 0.1 K/mcL (0.0-0.6); Eosinophils % 1.7 %; Hematocrit 33.1 % (35.3-44.9); Hemoglobin 10.4 g/dL (11.5-15.4); Immature Granulocytes % 0.9 % (0-4); Lymphocytes # 0.2 K/mcL (0.6-4.6); Lymphocytes % 3.2 %; Mean Corpuscular HGB Conc 31.4 g/dL (31.6-35.5); Mean Corpuscular Hemoglobin 28.3 pg (28.0-33.3); Mean Corpuscular Volume 90.2 fL (83.0-100.0); Mean Platelet Volume 8.9 fL (9.4-12.4); Monocytes # 0.2 K/mcL (0.0-1.3); Monocytes % 2.7 %; Neutrophils # 6.3 K/mcL (1.6-8.9); Platelet Count 242 K/mcL (140-400); Red Blood Count 3.67 M/mcL (3.82-4.97); Red Cell Distribution Width 18.1 % (11.5-14.5); Segmented Neutrophils % 91.2 %; White Blood Count 6.9 K/mcL (4.3-11.1)
[2022-02-23 12:58] LABS: BUN/Creatinine Ratio 19 (6-26); Blood Urea Nitrogen 14 mg/dL (6-20); Calcium 8.6 mg/dL (8.6-10.3); Carbon Dioxide 23 mEq/L (23-29); Chloride 93 mEq/L (98-107); Glucose 94 mg/dL (70-105); Osmolality,Calculated 262 (280-300); Potassium 4.3 mEq/L (3.5-5.1); Sodium 126 mEq/L (136-145); Troponin I 0.03 ng/mL (< 0.04); eGFR For African Americans > 60 (> 60); eGFR For Non-African Americans > 60 (> 60)
[2022-02-23 13:56] LABS: Adenovirus Not Detected (Not Detect); Bordetella Pertussis Not Detected (Not Detect); Chlamydophila pneumoniae Not Detected (Not Detect); Coronavirus 229E Not Detected (Not Detect); Coronavirus HKU1 Not Detected (Not Detect); Coronavirus NL63 Not Detected (Not Detect); Coronavirus OC43 Not Detected (Not Detect); Human Metapneumovirus Not Detected (Not Detect); Human Rhinovirus/Enterovirus DETECTED (Not Detect); Influenza A Subtype 2009 H1 Not Detected (Not Detect); Influenza B Not Detected (Not Detect); Mycoplasma pneumoniae Not Detected (Not Detect); Parainfluenza Virus 1 Not Detected (Not Detect); Parainfluenza Virus 2 Not Detected (Not Detect); Parainfluenza Virus 3 Not Detected (Not Detect); Parainfluenza Virus 4 Not Detected (Not Detect); Respiratory Syncytial Virus Not Detected (Not Detect); SARS-CoV-2 Not Detected (Not Detect)
[2022-02-23] MEDS ORDERED: 0.9 % Sodium Chloride 1,000 ML IVC ONE ×2 (14:37→14:56)
[2022-02-23] MEDS ORDERED: Piperacillin/Tazobactam 3.375 GM in 0.9 % Sodium Chloride Mini Bag 100 ML IVPB ONE (14:45)
[2022-02-23] MEDS ORDERED: Naloxone 0.4 MG/ML INJ IVP PRN (14:56)
[2022-02-23 15:43] LABS: Alanine Aminotransferase 17 Units/L (7-52); Albumin 3.1 g/dL (3.5-5.7); Albumin/Globulin Ratio 0.8 (1.1-2.2); Alkaline Phosphatase 104 Units/L (34-104); Aspartate Amino Transferase 30 Units/L (13-39); Bilirubin,Direct 0.6 mg/dL (0.0-0.2); Bilirubin,Indirect 0.3 mg/dL (0.0-1.0); Bilirubin,Total 0.9 mg/dL (0.3-1.0); Globulin 3.8 g/dL (2.4-3.5); Magnesium 1.8 mg/dL (1.6-2.6); Total Protein 6.9 g/dL (6.4-8.9)
[2022-02-23 17:31] LABS: Hepatitis B Surface Antigen Nonreactive (Nonreactive)
[2022-02-23] MEDS: Azithromycin 500 MG in 0.9 % Sodium Chloride 250 ML IVPB SCH (17:47)
[2022-02-23] MEDS ORDERED: Artificial Tears SOLN 15 ML BOTTLE BOTH EYES PRN (18:16)
[2022-02-23 19:12] LABS: Hepatitis C Virus Antibody Nonreactive (Nonreactive)
[2022-02-23 19:13] LABS: HIV-1&2 Antibody & p24 Ag Nonreactive (Nonreactive)
[2022-02-23] MEDS: Ondansetron 4 MG/2 ML VIAL IVP PRN (19:35)
[2022-02-23] MEDS: QUEtiapine Fumarate 25 MG TABLET PO SCH (19:36)
[2022-02-24 05:23] LABS: Basophils % 0.4 %; Eosinophils # 0.8 K/mcL (0.0-0.6); Eosinophils % 10.1 %; Hematocrit 24.9 % (35.3-44.9); Immature Granulocytes % 0.4 % (0-4); Lymphocytes # 0.4 K/mcL (0.6-4.6); Lymphocytes % 5.5 %; Mean Corpuscular HGB Conc 32.1 g/dL (31.6-35.5); Mean Corpuscular Hemoglobin 28.4 pg (28.0-33.3); Mean Corpuscular Volume 88.3 fL (83.0-100.0); Mean Platelet Volume 8.8 fL (9.4-12.4); Monocytes # 0.1 K/mcL (0.0-1.3); Monocytes % 1.2 %; Neutrophils # 6.2 K/mcL (1.6-8.9); Platelet Count 198 K/mcL (140-400); Red Blood Count 2.82 M/mcL (3.82-4.97); Red Cell Distribution Width 17.7 % (11.5-14.5); Segmented Neutrophils % 82.4 %; White Blood Count 7.5 K/mcL (4.3-11.1)
[2022-02-24 05:44] LABS: BUN/Creatinine Ratio 16 (6-26); Blood Urea Nitrogen 10 mg/dL (6-20); Carbon Dioxide 20 mEq/L (23-29); Chloride 100 mEq/L (98-107); Glucose 79 mg/dL (70-105); Magnesium 1.6 mg/dL (1.6-2.6); Osmolality,Calculated 262 (280-300); Potassium 3.9 mEq/L (3.5-5.1); Sodium 127 mEq/L (136-145); eGFR For African Americans > 60 (> 60); eGFR For Non-African Americans > 60 (> 60)
[2022-02-24] MEDS: *HR* Enoxaparin 40 MG/0.4 ML SYRINGE SQ SCH (05:59)
[2022-02-24] MEDS ORDERED: rifAMPin 150 MG CAPSULE PO SCH (09:00)
[2022-02-24] MEDS: Cholecalciferol (D-3) 1,000 UNIT (25MCG) TABLET PO SCH (09:36)
[2022-02-24] MEDS: Pyridoxine (B-6) 50 MG TABLET PO SCH (09:36)
[2022-02-24] MEDS: DilTIAZem CD (24hr) 120 MG CAP.ER.24H PO SCH (09:36)
[2022-02-24] MEDS: FLUoxetine 20 MG CAPSULE PO SCH (09:36)
[2022-02-24] MEDS: lisinopriL 10 MG TABLET PO SCH (09:37)
[2022-02-24] MEDS: rifAMPin 150 MG CAPSULE PO SCH (09:37)
[2022-02-24] MEDS: Folic Acid 1 MG TABLET PO SCH (09:37)
[2022-02-24] MEDS: Aspirin Enteric Coated 81 MG Tablet PO SCH (09:37)
[2022-02-24] MEDS: Loratadine 10 MG TABLET PO SCH (09:37)
[2022-02-24] MEDS: Cyanocobalamin (B-12) 1,000 MCG TABLET PO SCH (09:40)
[2022-02-24] MEDS: Benzonatate 100 MG CAPSULE PO PRN (09:41)
[2022-02-24] MEDS: ETHAMBUTOL HCL 100 MG PO SCH (09:43)
[2022-02-24] MEDS: Acetaminophen 325 MG TABLET PO PRN (11:57)
[2022-02-24] MEDS: Azithromycin 500 MG in 0.9 % Sodium Chloride 250 ML IVPB SCH (15:03)
[2022-02-24] MEDS: Piperacillin/Tazobactam 3.375 GM in 0.9 % Sodium Chloride Mini Bag 100 ML IVPB SCH (16:27)
[2022-02-24] MEDS: QUEtiapine Fumarate 25 MG TABLET PO SCH (20:44)
[2022-02-25] MEDS: Piperacillin/Tazobactam 3.375 GM in 0.9 % Sodium Chloride Mini Bag 100 ML IVPB SCH ×3 (00:08→20:55)
[2022-02-25 04:39] LABS: Basophils % 0.3 %; Eosinophils # 0.3 K/mcL (0.0-0.6); Eosinophils % 3.9 %; Hematocrit 26.3 % (35.3-44.9); Hemoglobin 8.4 g/dL (11.5-15.4); Immature Granulocytes % 0.9 % (0-4); Lymphocytes # 0.3 K/mcL (0.6-4.6); Mean Corpuscular HGB Conc 31.9 g/dL (31.6-35.5); Mean Corpuscular Hemoglobin 27.9 pg (28.0-33.3); Mean Corpuscular Volume 87.4 fL (83.0-100.0); Mean Platelet Volume 8.7 fL (9.4-12.4); Monocytes # 0.1 K/mcL (0.0-1.3); Monocytes % 0.8 %; Neutrophils # 5.7 K/mcL (1.6-8.9); Platelet Count 211 K/mcL (140-400); Red Blood Count 3.01 M/mcL (3.82-4.97); Red Cell Distribution Width 17.7 % (11.5-14.5); Segmented Neutrophils % 89.1 %; White Blood Count 6.4 K/mcL (4.3-11.1)
[2022-02-25 04:43] LABS: Alanine Aminotransferase 14 Units/L (7-52); Albumin 2.3 g/dL (3.5-5.7); Albumin/Globulin Ratio 0.8 (1.1-2.2); Alkaline Phosphatase 86 Units/L (34-104); Aspartate Amino Transferase 27 Units/L (13-39); BUN/Creatinine Ratio 10 (6-26); Bilirubin,Total 0.9 mg/dL (0.3-1.0); Blood Urea Nitrogen 7 mg/dL (6-20); Calcium 7.5 mg/dL (8.6-10.3); Carbon Dioxide 22 mEq/L (23-29); Chloride 97 mEq/L (98-107); Globulin 2.9 g/dL (2.4-3.5); Glucose 88 mg/dL (70-105); Magnesium 1.5 mg/dL (1.6-2.6); Osmolality,Calculated 257 (280-300); Potassium 3.4 mEq/L (3.5-5.1); Sodium 125 mEq/L (136-145); Total Protein 5.2 g/dL (6.4-8.9); eGFR For African Americans > 60 (> 60); eGFR For Non-African Americans > 60 (> 60)
[2022-02-25 05:37] LABS: Platelet Estimate Normal (Normal); Reactive Lymphocytes Present (Not Present)
[2022-02-25] MEDS ORDERED: Albuterol 2.5 MG/3 ML NEBULIZER IH PRN (07:52)
[2022-02-25] MEDS ORDERED: *HR* Midazolam HCl 2 MG/2 ML VIAL IVP PRN (07:52)
[2022-02-25] MEDS ORDERED: Lidocaine -MPF 4% 5 ML AMPUL ONE (08:03)
[2022-02-25] MEDS ORDERED: *HR* Succinylcholine 200 MG/10 ML VIAL IVP ONE (08:03)
[2022-02-25] MEDS ORDERED: Lidocaine -MPF 2% 5 ML VIAL ONE (08:03)
[2022-02-25] MEDS ORDERED: *HR* Metoprolol 5 MG/5 ML VIAL IVP ONE (08:03)
[2022-02-25] MEDS ORDERED: *HR* Dextrose 50 % in Water (Vial) 50 ML VIAL ONE (09:07)
[2022-02-25] MEDS: Ipratropium/Albuterol Neb 3 ML IH PRN (09:25)
[2022-02-25] MEDS ORDERED: Ipratropium Neb 0.5 MG NEBULIZER IH PRN (09:25)
[2022-02-25] MEDS: *HR* Enoxaparin 40 MG/0.4 ML SYRINGE SQ SCH (12:50)
[2022-02-25] MEDS: lisinopriL 10 MG TABLET PO SCH (12:51)
[2022-02-25] MEDS: Loratadine 10 MG TABLET PO SCH (12:51)
[2022-02-25] MEDS: Folic Acid 1 MG TABLET PO SCH (12:51)
[2022-02-25] MEDS: Aspirin Enteric Coated 81 MG Tablet PO SCH (12:51)
[2022-02-25] MEDS: FLUoxetine 20 MG CAPSULE PO SCH (12:51)
[2022-02-25] MEDS: Cyanocobalamin (B-12) 1,000 MCG TABLET PO SCH (12:52)
[2022-02-25] MEDS: Pyridoxine (B-6) 50 MG TABLET PO SCH (12:52)
[2022-02-25] MEDS: Cholecalciferol (D-3) 1,000 UNIT (25MCG) TABLET PO SCH (12:52)
[2022-02-25] MEDS: DilTIAZem CD (24hr) 120 MG CAP.ER.24H PO SCH (12:52)
[2022-02-25] MEDS: ETHAMBUTOL HCL 100 MG PO SCH (13:27)
[2022-02-25 15:47] LABS: Source of Body Fluid LUL BAL
[2022-02-25] MEDS: rifAMPin 150 MG CAPSULE PO SCH (16:05)
[2022-02-25] MEDS: Azithromycin 250 MG TABLET PO SCH (16:51)
[2022-02-25 19:58] LABS: Appearance of Body Fluid Cloudy (Clear); Volume of Body Fluid 19 mL
[2022-02-25] MEDS: QUEtiapine Fumarate 25 MG TABLET PO SCH (20:55)
[2022-02-25] MEDS: Ondansetron 4 MG/2 ML VIAL IVP PRN (22:09)
[2022-02-26] MEDS: Piperacillin/Tazobactam 3.375 GM in 0.9 % Sodium Chloride Mini Bag 100 ML IVPB SCH ×3 (04:56→20:12)
[2022-02-26 06:24] LABS: Basophils % 0.2 %; Eosinophils # 0.3 K/mcL (0.0-0.6); Eosinophils % 4.8 %; Hematocrit 26.2 % (35.3-44.9); Hemoglobin 8.4 g/dL (11.5-15.4); Lymphocytes # 0.4 K/mcL (0.6-4.6); Lymphocytes % 6.8 %; Mean Corpuscular HGB Conc 32.1 g/dL (31.6-35.5); Mean Corpuscular Hemoglobin 27.7 pg (28.0-33.3); Mean Corpuscular Volume 86.5 fL (83.0-100.0); Monocytes # 0.1 K/mcL (0.0-1.3); Monocytes % 1.5 %; Platelet Count 222 K/mcL (140-400); Red Blood Count 3.03 M/mcL (3.82-4.97); Red Cell Distribution Width 17.7 % (11.5-14.5); Segmented Neutrophils % 85.7 %; White Blood Count 5.2 K/mcL (4.3-11.1)
[2022-02-26 06:29] LABS: Neutrophils # 4.5 K/mcL (1.6-8.9)
[2022-02-26] MEDS: *HR* Enoxaparin 40 MG/0.4 ML SYRINGE SQ SCH (06:37)
[2022-02-26 06:50] LABS: BUN/Creatinine Ratio 15 (6-26); Blood Urea Nitrogen 9 mg/dL (6-20); Calcium 7.8 mg/dL (8.6-10.3); Carbon Dioxide 22 mEq/L (23-29); Chloride 95 mEq/L (98-107); Glucose 96 mg/dL (70-105); Osmolality,Calculated 259 (280-300); Potassium 3.6 mEq/L (3.5-5.1); Sodium 125 mEq/L (136-145); eGFR For African Americans > 60 (> 60); eGFR For Non-African Americans > 60 (> 60)
[2022-02-26 06:59] LABS: Anisocytosis 1+ (Not Present); Platelet Estimate Normal (Normal)
[2022-02-26] MEDS: FLUoxetine 20 MG CAPSULE PO SCH (08:42)
[2022-02-26] MEDS: Cholecalciferol (D-3) 1,000 UNIT (25MCG) TABLET PO SCH (08:42)
[2022-02-26] MEDS: Aspirin Enteric Coated 81 MG Tablet PO SCH (08:42)
[2022-02-26] MEDS: rifAMPin 150 MG CAPSULE PO SCH (08:43)
[2022-02-26] MEDS: Pyridoxine (B-6) 50 MG TABLET PO SCH (08:43)
[2022-02-26] MEDS: Loratadine 10 MG TABLET PO SCH (08:43)
[2022-02-26] MEDS: Folic Acid 1 MG TABLET PO SCH (08:44)
[2022-02-26] MEDS: Cyanocobalamin (B-12) 1,000 MCG TABLET PO SCH (08:44)
[2022-02-26] MEDS: DilTIAZem CD (24hr) 120 MG CAP.ER.24H PO SCH (08:44)
[2022-02-26] MEDS: lisinopriL 10 MG TABLET PO SCH (08:45)
[2022-02-26] MEDS: ETHAMBUTOL HCL 100 MG PO SCH (08:45)
[2022-02-26 10:04] LABS: C-Reactive Protein 145 mg/L (Less than 10)
[2022-02-26 13:14] LABS: Serine Protease-3 Antibody 7 AU/mL (0-19)
[2022-02-26] MEDS: Azithromycin 250 MG TABLET PO SCH (16:11)
[2022-02-26] MEDS: Ondansetron 4 MG/2 ML VIAL IVP PRN (16:11)
[2022-02-26] MEDS: QUEtiapine Fumarate 25 MG TABLET PO SCH (20:13)
[2022-02-26] MEDS: Acetaminophen 325 MG TABLET PO PRN (20:13)
[2022-02-26] MEDS: Benzonatate 100 MG CAPSULE PO PRN (20:14)
[2022-02-27] MEDS ORDERED: 0.9 % Sodium Chloride 1,000 ML IVC ONE (00:23)
[2022-02-27 02:06] LABS: Basophils % 0.6 %; Eosinophils # 0.5 K/mcL (0.0-0.6); Eosinophils % 13.2 %; Hematocrit 25.4 % (35.3-44.9); Hemoglobin 8.3 g/dL (11.5-15.4); Immature Granulocytes % 1.1 % (0-4); Lymphocytes # 0.3 K/mcL (0.6-4.6); Lymphocytes % 9.7 %; Mean Corpuscular HGB Conc 32.7 g/dL (31.6-35.5); Mean Corpuscular Hemoglobin 28.4 pg (28.0-33.3); Monocytes # 0.1 K/mcL (0.0-1.3); Monocytes % 2.9 %; Neutrophils # 2.5 K/mcL (1.6-8.9); Platelet Count 168 K/mcL (140-400); Red Blood Count 2.92 M/mcL (3.82-4.97); Red Cell Distribution Width 17.7 % (11.5-14.5); Segmented Neutrophils % 72.5 %; White Blood Count 3.5 K/mcL (4.3-11.1)
[2022-02-27 02:40] LABS: BUN/Creatinine Ratio 16 (6-26); Blood Urea Nitrogen 10 mg/dL (6-20); C-Reactive Protein 123 mg/L (Less than 10); Carbon Dioxide 24 mEq/L (23-29); Chloride 102 mEq/L (98-107); Glucose 65 mg/dL (70-105); Osmolality,Calculated 275 (280-300); Potassium 2.9 mEq/L (3.5-5.1); Sodium 134 mEq/L (136-145); eGFR For African Americans > 60 (> 60); eGFR For Non-African Americans > 60 (> 60)
[2022-02-27] MEDS: Piperacillin/Tazobactam 3.375 GM in 0.9 % Sodium Chloride Mini Bag 100 ML IVPB SCH ×3 (04:25→20:38)
[2022-02-27] MEDS: *HR* Enoxaparin 40 MG/0.4 ML SYRINGE SQ SCH (06:25)
[2022-02-27] MEDS: Benzonatate 100 MG CAPSULE PO PRN ×2 (06:25→15:52)
[2022-02-27] MEDS ORDERED: Potassium Chloride Elixir 20 MEQ/15 ML UDC PO ONE (07:21)
[2022-02-27] MEDS: rifAMPin 150 MG CAPSULE PO SCH (08:29)
[2022-02-27] MEDS: Folic Acid 1 MG TABLET PO SCH (08:30)
[2022-02-27] MEDS: Aspirin Enteric Coated 81 MG Tablet PO SCH (08:30)
[2022-02-27] MEDS: Pyridoxine (B-6) 50 MG TABLET PO SCH (08:30)
[2022-02-27] MEDS: Cyanocobalamin (B-12) 1,000 MCG TABLET PO SCH (08:30)
[2022-02-27] MEDS: DilTIAZem CD (24hr) 120 MG CAP.ER.24H PO SCH (08:30)
[2022-02-27] MEDS: Loratadine 10 MG TABLET PO SCH (08:30)
[2022-02-27] MEDS: lisinopriL 10 MG TABLET PO SCH (08:30)
[2022-02-27] MEDS: Cholecalciferol (D-3) 1,000 UNIT (25MCG) TABLET PO SCH (08:30)
[2022-02-27] MEDS: FLUoxetine 20 MG CAPSULE PO SCH (08:30)
[2022-02-27] MEDS: ETHAMBUTOL HCL 100 MG PO SCH (08:32)
[2022-02-27] MEDS: Ondansetron 4 MG/2 ML VIAL IVP PRN (10:06)
[2022-02-27] MEDS: Ipratropium/Albuterol Neb 3 ML IH PRN (10:36)
[2022-02-27] MEDS: polyethylene glycoL 3350 17 GM POWD.PACK PO SCH (11:18)
[2022-02-27] MEDS ORDERED: Metoclopramide 10 MG/2 ML VIAL IVP ONE (11:21)
[2022-02-27] MEDS: Azithromycin 250 MG TABLET PO SCH (15:47)
[2022-02-27] MEDS: Acetaminophen 325 MG TABLET PO PRN (15:52)
[2022-02-27 16:21] LABS: Bilirubin,Urine Negative (Negative); Blood,Urine Trace (Negative); Clarity,Urine Clear (Clear); Color,Urine Dark-Yellow (Yellow); Glucose,Urine (UA) Normal (Normal); Ketones,Urine Negative (Negative); Leukocyte Esterase,Urine Small (Negative); Mucus,Urine Few per lpf (None-Few); Nitrite,Urine Negative (Negative); Protein,Urine 30 mg/dL (Neg-Trace); Specific Gravity,Urine 1.014 (1.010-1.025); Squamous Epithelial Cell,Urine Few per hpf (None-Few); Urobilinogen,Urine Normal (Normal)
[2022-02-27] MEDS: QUEtiapine Fumarate 25 MG TABLET PO SCH (20:38)
[2022-02-28 03:32] LABS: Basophils % 0.4 %; Eosinophils # 0.5 K/mcL (0.0-0.6); Eosinophils % 10.6 %; Hematocrit 25.4 % (35.3-44.9); Hemoglobin 8.2 g/dL (11.5-15.4); Immature Granulocytes % 0.6 % (0-4); Lymphocytes # 0.3 K/mcL (0.6-4.6); Lymphocytes % 7.1 %; Mean Corpuscular HGB Conc 32.3 g/dL (31.6-35.5); Mean Corpuscular Hemoglobin 27.5 pg (28.0-33.3); Mean Corpuscular Volume 85.2 fL (83.0-100.0); Monocytes # 0.3 K/mcL (0.0-1.3); Monocytes % 5.2 %; Neutrophils # 3.7 K/mcL (1.6-8.9); Platelet Count 157 K/mcL (140-400); Red Blood Count 2.98 M/mcL (3.82-4.97); Red Cell Distribution Width 17.6 % (11.5-14.5); Segmented Neutrophils % 76.1 %; White Blood Count 4.8 K/mcL (4.3-11.1)
[2022-02-28 03:42] LABS: Magnesium 1.5 mg/dL (1.6-2.6)
[2022-02-28 03:43] LABS: BUN/Creatinine Ratio 12 (6-26); Blood Urea Nitrogen 7 mg/dL (6-20); Calcium 7.6 mg/dL (8.6-10.3); Carbon Dioxide 23 mEq/L (23-29); Chloride 99 mEq/L (98-107); Glucose 72 mg/dL (70-105); Osmolality,Calculated 263 (280-300); Sodium 128 mEq/L (136-145); eGFR For African Americans > 60 (> 60); eGFR For Non-African Americans > 60 (> 60)
[2022-02-28] MEDS: Piperacillin/Tazobactam 3.375 GM in 0.9 % Sodium Chloride Mini Bag 100 ML IVPB SCH ×3 (04:17→20:11)
[2022-02-28] MEDS: *HR* Enoxaparin 40 MG/0.4 ML SYRINGE SQ SCH (06:29)
[2022-02-28] MEDS: Benzonatate 100 MG CAPSULE PO PRN (06:29)
[2022-02-28] MEDS: Azithromycin 500 MG in 0.9 % Sodium Chloride 250 ML IVPB SCH (07:32)
[2022-02-28] MEDS: rifAMPin 150 MG CAPSULE PO SCH (08:27)
[2022-02-28] MEDS: Pyridoxine (B-6) 50 MG TABLET PO SCH (08:27)
[2022-02-28] MEDS: Folic Acid 1 MG TABLET PO SCH (08:27)
[2022-02-28] MEDS: DilTIAZem CD (24hr) 120 MG CAP.ER.24H PO SCH (08:28)
[2022-02-28] MEDS: Loratadine 10 MG TABLET PO SCH (08:28)
[2022-02-28] MEDS: Cyanocobalamin (B-12) 1,000 MCG TABLET PO SCH (08:28)
[2022-02-28] MEDS: FLUoxetine 20 MG CAPSULE PO SCH (08:28)
[2022-02-28] MEDS: Aspirin Enteric Coated 81 MG Tablet PO SCH (08:28)
[2022-02-28] MEDS: lisinopriL 10 MG TABLET PO SCH (08:28)
[2022-02-28] MEDS: Cholecalciferol (D-3) 1,000 UNIT (25MCG) TABLET PO SCH (08:28)
[2022-02-28] MEDS: polyethylene glycoL 3350 17 GM POWD.PACK PO SCH (08:33)
[2022-02-28] MEDS: ETHAMBUTOL HCL 100 MG PO SCH (09:00)
[2022-02-28] MEDS: Ondansetron 4 MG/2 ML VIAL IVP PRN (14:22)
[2022-02-28] MEDS: Azithromycin 250 MG TABLET PO SCH (14:22)
[2022-02-28] MEDS ORDERED: Furosemide 40 MG/4 ML VIAL IVP ONE (18:58)
[2022-02-28] MEDS: QUEtiapine Fumarate 25 MG TABLET PO SCH (20:12)
[2022-03-01 03:08] LABS: Basophils # 0.1 K/mcL (0.0-0.2); Basophils % 1.4 %; Eosinophils # 0.3 K/mcL (0.0-0.6); Eosinophils % 7.4 %; Hematocrit 25.6 % (35.3-44.9); Hemoglobin 8.6 g/dL (11.5-15.4); Immature Granulocytes % 0.8 % (0-4); Lymphocytes # 0.5 K/mcL (0.6-4.6); Lymphocytes % 13.8 %; Mean Corpuscular HGB Conc 33.6 g/dL (31.6-35.5); Mean Corpuscular Hemoglobin 28.4 pg (28.0-33.3); Mean Corpuscular Volume 84.5 fL (83.0-100.0); Mean Platelet Volume 8.8 fL (9.4-12.4); Monocytes # 0.3 K/mcL (0.0-1.3); Monocytes % 9.4 %; Neutrophils # 2.4 K/mcL (1.6-8.9); Platelet Count 119 K/mcL (140-400); Red Blood Count 3.03 M/mcL (3.82-4.97); Red Cell Distribution Width 17.8 % (11.5-14.5); Segmented Neutrophils % 67.2 %; White Blood Count 3.6 K/mcL (4.3-11.1)
[2022-03-01 03:27] LABS: Magnesium 1.5 mg/dL (1.6-2.6)
[2022-03-01 03:28] LABS: BUN/Creatinine Ratio 13 (6-26); Blood Urea Nitrogen 10 mg/dL (6-20); Calcium 7.4 mg/dL (8.6-10.3); Carbon Dioxide 24 mEq/L (23-29); Chloride 93 mEq/L (98-107); Glucose 61 mg/dL (70-105); Osmolality,Calculated 259 (280-300); Potassium 3.3 mEq/L (3.5-5.1); Sodium 126 mEq/L (136-145); eGFR For African Americans > 60 (> 60); eGFR For Non-African Americans > 60 (> 60)
[2022-03-01] MEDS: Piperacillin/Tazobactam 3.375 GM in 0.9 % Sodium Chloride Mini Bag 100 ML IVPB SCH ×3 (03:44→19:34)
[2022-03-01] MEDS: *HR* Enoxaparin 40 MG/0.4 ML SYRINGE SQ SCH (05:31)
[2022-03-01] MEDS ORDERED: Potassium Effervescent 25 MEQ TABLET.EFF PO ONE (07:41)
[2022-03-01] MEDS: Cholecalciferol (D-3) 1,000 UNIT (25MCG) TABLET PO SCH (08:45)
[2022-03-01] MEDS: rifAMPin 150 MG CAPSULE PO SCH (08:45)
[2022-03-01] MEDS: FLUoxetine 20 MG CAPSULE PO SCH (08:46)
[2022-03-01] MEDS: Pyridoxine (B-6) 50 MG TABLET PO SCH (08:46)
[2022-03-01] MEDS: lisinopriL 10 MG TABLET PO SCH (08:46)
[2022-03-01] MEDS: Aspirin Enteric Coated 81 MG Tablet PO SCH (08:46)
[2022-03-01] MEDS: Loratadine 10 MG TABLET PO SCH (08:46)
[2022-03-01] MEDS: Folic Acid 1 MG TABLET PO SCH (08:47)
[2022-03-01] MEDS: DilTIAZem CD (24hr) 120 MG CAP.ER.24H PO SCH (08:47)
[2022-03-01] MEDS: Cyanocobalamin (B-12) 1,000 MCG TABLET PO SCH (08:47)
[2022-03-01] MEDS: polyethylene glycoL 3350 17 GM POWD.PACK PO SCH (08:47)
[2022-03-01] MEDS: ETHAMBUTOL HCL 100 MG PO SCH (08:48)
[2022-03-01] MEDS: Ondansetron 4 MG/2 ML VIAL IVP PRN ×2 (11:49→19:34)
[2022-03-01] MEDS: Azithromycin 250 MG TABLET PO SCH (16:05)
[2022-03-01] MEDS ORDERED: *HR* Metoprolol 5 MG/5 ML VIAL IVP ONE (20:44)
[2022-03-01] MEDS: QUEtiapine Fumarate 25 MG TABLET PO SCH (20:50)
[2022-03-02] MEDS: Piperacillin/Tazobactam 3.375 GM in 0.9 % Sodium Chloride Mini Bag 100 ML IVPB SCH ×3 (03:55→20:05)
[2022-03-02 05:43] LABS: Eosinophils # 0.6 K/mcL (0.0-0.6); Eosinophils % 13.4 %; Hematocrit 25.6 % (35.3-44.9); Hemoglobin 8.1 g/dL (11.5-15.4); Immature Granulocytes % 0.7 % (0-4); Lymphocytes # 0.5 K/mcL (0.6-4.6); Lymphocytes % 11.5 %; Mean Corpuscular HGB Conc 31.6 g/dL (31.6-35.5); Mean Corpuscular Hemoglobin 27.2 pg (28.0-33.3); Mean Corpuscular Volume 85.9 fL (83.0-100.0); Mean Platelet Volume 9.4 fL (9.4-12.4); Monocytes # 0.5 K/mcL (0.0-1.3); Monocytes % 11.5 %; Neutrophils # 2.5 K/mcL (1.6-8.9); Platelet Count 101 K/mcL (140-400); Red Blood Count 2.98 M/mcL (3.82-4.97); Segmented Neutrophils % 61.9 %; White Blood Count 4.1 K/mcL (4.3-11.1)
[2022-03-02 05:58] LABS: BUN/Creatinine Ratio 17 (6-26); Blood Urea Nitrogen 16 mg/dL (6-20); Calcium 7.1 mg/dL (8.6-10.3); Carbon Dioxide 25 mEq/L (23-29); Chloride 92 mEq/L (98-107); Glucose 52 mg/dL (70-105); Osmolality,Calculated 257 (280-300); Potassium 4.1 mEq/L (3.5-5.1); Sodium 124 mEq/L (136-145); eGFR For African Americans > 60 (> 60); eGFR For Non-African Americans > 60 (> 60)
[2022-03-02 05:59] LABS: Magnesium 2.1 mg/dL (1.6-2.6)
[2022-03-02] MEDS: *HR* Enoxaparin 40 MG/0.4 ML SYRINGE SQ SCH (06:21)
[2022-03-02 06:28] LABS: Hypochromasia Present (Not Present)
[2022-03-02 06:29] LABS: Anisocytosis 1+ (Not Present); Platelet Estimate Decreased (Normal)
[2022-03-02] MEDS ORDERED: D5% in Water 1,000 ML IVC PRN (06:40)
[2022-03-02] MEDS ORDERED: Dextrose Gel 15 GM/37.5 ML TUBE PO PRN ×2 (06:40)
[2022-03-02] MEDS: *HR* Dextrose 50 % in Water (Syg) 50 ML SYRINGE IVP PRN (06:48)
[2022-03-02] MEDS: rifAMPin 150 MG CAPSULE PO SCH (08:02)
[2022-03-02] MEDS: lisinopriL 10 MG TABLET PO SCH (08:02)
[2022-03-02] MEDS: Pyridoxine (B-6) 50 MG TABLET PO SCH (08:03)
[2022-03-02] MEDS: Cyanocobalamin (B-12) 1,000 MCG TABLET PO SCH (08:03)
[2022-03-02] MEDS: Folic Acid 1 MG TABLET PO SCH (08:03)
[2022-03-02] MEDS: FLUoxetine 20 MG CAPSULE PO SCH (08:03)
[2022-03-02] MEDS: Loratadine 10 MG TABLET PO SCH (08:04)
[2022-03-02] MEDS: Aspirin Enteric Coated 81 MG Tablet PO SCH (08:04)
[2022-03-02] MEDS: Cholecalciferol (D-3) 1,000 UNIT (25MCG) TABLET PO SCH (08:04)
[2022-03-02] MEDS: DilTIAZem CD (24hr) 120 MG CAP.ER.24H PO SCH (08:04)
[2022-03-02] MEDS: ETHAMBUTOL HCL 100 MG PO SCH (08:05)
[2022-03-02] MEDS: polyethylene glycoL 3350 17 GM POWD.PACK PO SCH (08:05)
[2022-03-02] MEDS ORDERED: Perflutren Lipid Microsphere 1.3 ML in 0.9 % Sodium Chloride 8.7 ML IVP PRN (08:10)
[2022-03-02] MEDS: Ondansetron 4 MG/2 ML VIAL IVP PRN ×2 (12:24→20:25)
[2022-03-02] MEDS: Azithromycin 250 MG TABLET PO SCH (15:44)
[2022-03-02] MEDS: QUEtiapine Fumarate 25 MG TABLET PO SCH (20:04)
[2022-03-03] MEDS: Piperacillin/Tazobactam 3.375 GM in 0.9 % Sodium Chloride Mini Bag 100 ML IVPB SCH ×3 (03:38→20:06)
[2022-03-03] MEDS: *HR* Heparin 5,000 UNIT/ML VIAL SQ SCH ×2 (05:43→18:25)
[2022-03-03 07:07] LABS: Hematocrit 24.1 % (35.3-44.9); Hemoglobin 8.1 g/dL (11.5-15.4); Mean Corpuscular HGB Conc 33.6 g/dL (31.6-35.5); Mean Corpuscular Hemoglobin 28.7 pg (28.0-33.3); Mean Corpuscular Volume 85.5 fL (83.0-100.0); Mean Platelet Volume 9.4 fL (9.4-12.4); Platelet Count 107 K/mcL (140-400); Red Blood Count 2.82 M/mcL (3.82-4.97); Red Cell Distribution Width 18.1 % (11.5-14.5); White Blood Count 3.1 K/mcL (4.3-11.1)
[2022-03-03 07:32] LABS: BUN/Creatinine Ratio 20 (6-26); Blood Urea Nitrogen 19 mg/dL (6-20); Calcium 7.2 mg/dL (8.6-10.3); Carbon Dioxide 24 mEq/L (23-29); Chloride 93 mEq/L (98-107); Glucose 40 mg/dL (70-105); Osmolality,Calculated 261 (280-300); Sodium 126 mEq/L (136-145); eGFR For African Americans > 60 (> 60); eGFR For Non-African Americans 60 (> 60)
[2022-03-03 07:58] LABS: Anisocytosis 1+ (Not Present); Eosinophils # 0.3 K/mcL (0.0-0.6); Lymphocytes # 0.4 K/mcL (0.6-4.6); Monocytes # 0.1 K/mcL (0.0-1.3); Neutrophils # 2.4 K/mcL (1.6-8.9); Platelet Estimate Slight Decrease (Normal)
[2022-03-03] MEDS: Cholecalciferol (D-3) 1,000 UNIT (25MCG) TABLET PO SCH (08:11)
[2022-03-03] MEDS: Aspirin Enteric Coated 81 MG Tablet PO SCH (08:11)
[2022-03-03] MEDS: Cyanocobalamin (B-12) 1,000 MCG TABLET PO SCH (08:11)
[2022-03-03] MEDS: Folic Acid 1 MG TABLET PO SCH (08:12)
[2022-03-03] MEDS: DilTIAZem CD (24hr) 120 MG CAP.ER.24H PO SCH (08:12)
[2022-03-03] MEDS: FLUoxetine 20 MG CAPSULE PO SCH (08:12)
[2022-03-03] MEDS: rifAMPin 150 MG CAPSULE PO SCH (08:12)
[2022-03-03] MEDS: Pyridoxine (B-6) 50 MG TABLET PO SCH (08:12)
[2022-03-03] MEDS: Loratadine 10 MG TABLET PO SCH (08:12)
[2022-03-03] MEDS: lisinopriL 10 MG TABLET PO SCH (08:13)
[2022-03-03] MEDS: ETHAMBUTOL HCL 100 MG PO SCH (08:13)
[2022-03-03] MEDS: polyethylene glycoL 3350 17 GM POWD.PACK PO SCH (08:13)
[2022-03-03 09:31] LABS: C-Reactive Protein 122 mg/L (Less than 10)
[2022-03-03] MEDS: Azithromycin 250 MG TABLET PO SCH (15:49)
[2022-03-03] MEDS: Ondansetron 4 MG/2 ML VIAL IVP PRN (16:17)
[2022-03-03] MEDS: QUEtiapine Fumarate 25 MG TABLET PO SCH (20:07)
[2022-03-03] MEDS: Benzonatate 100 MG CAPSULE PO PRN (20:14)
[2022-03-04] MEDS: Piperacillin/Tazobactam 3.375 GM in 0.9 % Sodium Chloride Mini Bag 100 ML IVPB SCH ×3 (03:12→19:59)
[2022-03-04 05:56] LABS: Hematocrit 22.4 % (35.3-44.9); Hemoglobin 7.4 g/dL (11.5-15.4); Lymphocytes # 0.4 K/mcL (0.6-4.6); Mean Corpuscular Hemoglobin 27.5 pg (28.0-33.3); Mean Corpuscular Volume 83.3 fL (83.0-100.0); Mean Platelet Volume 9.7 fL (9.4-12.4); Platelet Count 139 K/mcL (140-400); Red Blood Count 2.69 M/mcL (3.82-4.97); Red Cell Distribution Width 18.1 % (11.5-14.5); White Blood Count 4.3 K/mcL (4.3-11.1)
[2022-03-04 06:18] LABS: Alanine Aminotransferase 49 Units/L (7-52); Albumin 2.1 g/dL (3.5-5.7); Albumin/Globulin Ratio 0.8 (1.1-2.2); Alkaline Phosphatase 175 Units/L (34-104); Aspartate Amino Transferase 78 Units/L (13-39); BUN/Creatinine Ratio 18 (6-26); Bilirubin,Total 2.1 mg/dL (0.3-1.0); Blood Urea Nitrogen 17 mg/dL (6-20); Calcium 6.9 mg/dL (8.6-10.3); Carbon Dioxide 24 mEq/L (23-29); Chloride 93 mEq/L (98-107); Globulin 2.6 g/dL (2.4-3.5); Glucose 52 mg/dL (70-105); Osmolality,Calculated 257 (280-300); Potassium 3.8 mEq/L (3.5-5.1); Sodium 124 mEq/L (136-145); Total Protein 4.7 g/dL (6.4-8.9); eGFR For African Americans > 60 (> 60); eGFR For Non-African Americans 60 (> 60)
[2022-03-04] MEDS: *HR* Heparin 5,000 UNIT/ML VIAL SQ SCH ×2 (06:25→17:16)
[2022-03-04 06:34] LABS: Eosinophils # 0.2 K/mcL (0.0-0.6); Monocytes # 0.7 K/mcL (0.0-1.3)
[2022-03-04 06:35] LABS: Platelet Estimate Decreased (Normal)
[2022-03-04] MEDS: DilTIAZem CD (24hr) 120 MG CAP.ER.24H PO SCH (07:59)
[2022-03-04] MEDS: Pyridoxine (B-6) 50 MG TABLET PO SCH (08:00)
[2022-03-04] MEDS: Aspirin Enteric Coated 81 MG Tablet PO SCH (08:00)
[2022-03-04] MEDS: FLUoxetine 20 MG CAPSULE PO SCH (08:00)
[2022-03-04] MEDS: rifAMPin 150 MG CAPSULE PO SCH (08:00)
[2022-03-04] MEDS: polyethylene glycoL 3350 17 GM POWD.PACK PO SCH (08:00)
[2022-03-04] MEDS: Cyanocobalamin (B-12) 1,000 MCG TABLET PO SCH (08:01)
[2022-03-04] MEDS: lisinopriL 10 MG TABLET PO SCH (08:01)
[2022-03-04] MEDS: Loratadine 10 MG TABLET PO SCH (08:01)
[2022-03-04] MEDS: Folic Acid 1 MG TABLET PO SCH (08:01)
[2022-03-04] MEDS: Cholecalciferol (D-3) 1,000 UNIT (25MCG) TABLET PO SCH (08:01)
[2022-03-04] MEDS: ETHAMBUTOL HCL 100 MG PO SCH (08:02)
[2022-03-04 09:20] LABS: C-Reactive Protein 116 mg/L (Less than 10)
[2022-03-04 12:53] LABS: Sodium, Urine 13.1 mEq/L
[2022-03-04] MEDS ORDERED: hydrOXYzine pamoate 25 MG CAPSULE PO ONE (13:36)
[2022-03-04] MEDS: Benzonatate 100 MG CAPSULE PO PRN (15:30)
[2022-03-04] MEDS: Acetaminophen 325 MG TABLET PO PRN (15:30)
[2022-03-04] MEDS: Azithromycin 250 MG TABLET PO SCH (15:31)
[2022-03-04] MEDS: Ipratropium/Albuterol Neb 3 ML IH PRN (16:05)
[2022-03-04] MEDS: *HR* Metoprolol 5 MG/5 ML VIAL IVP PRN (16:38)
[2022-03-04] MEDS: Ondansetron 4 MG/2 ML VIAL IVP PRN (17:17)
[2022-03-04] MEDS: QUEtiapine Fumarate 25 MG TABLET PO SCH (19:59)
[2022-03-04 22:55] LABS: Bilirubin,Urine Small (Negative); Blood,Urine Trace (Negative); Clarity,Urine Clear (Clear); Color,Urine Dark-Yellow (Yellow); Glucose,Urine (UA) Normal (Normal); Ketones,Urine Negative (Negative); Leukocyte Esterase,Urine Negative (Negative); Nitrite,Urine Negative (Negative); Protein,Urine 50 mg/dL (Neg-Trace); RBC,Urine 0-3 per hpf (0-3); Specific Gravity,Urine 1.025 (1.010-1.025); Squamous Epithelial Cell,Urine Few per hpf (None-Few); Urobilinogen,Urine Normal (Normal)
[2022-03-05] MEDS: Piperacillin/Tazobactam 3.375 GM in 0.9 % Sodium Chloride Mini Bag 100 ML IVPB SCH ×2 (03:44→12:31)
[2022-03-05] MEDS: *HR* Metoprolol 5 MG/5 ML VIAL IVP PRN (04:11)
[2022-03-05 05:03] LABS: Eosinophils # 0.4 K/mcL (0.0-0.6); Eosinophils % 9.4 %; Hematocrit 23.6 % (35.3-44.9); Hemoglobin 7.9 g/dL (11.5-15.4); Immature Granulocytes % 0.8 % (0-4); Lymphocytes # 0.4 K/mcL (0.6-4.6); Lymphocytes % 9.2 %; Mean Corpuscular HGB Conc 33.5 g/dL (31.6-35.5); Mean Corpuscular Hemoglobin 27.4 pg (28.0-33.3); Mean Corpuscular Volume 81.9 fL (83.0-100.0); Mean Platelet Volume 9.8 fL (9.4-12.4); Monocytes # 0.4 K/mcL (0.0-1.3); Monocytes % 9.9 %; Neutrophils # 2.7 K/mcL (1.6-8.9); Platelet Count 140 K/mcL (140-400); Red Blood Count 2.88 M/mcL (3.82-4.97); Red Cell Distribution Width 18.2 % (11.5-14.5); Segmented Neutrophils % 69.7 %; White Blood Count 3.9 K/mcL (4.3-11.1)
[2022-03-05 05:21] LABS: BUN/Creatinine Ratio 16 (6-26); Blood Urea Nitrogen 16 mg/dL (6-20); C-Reactive Protein 131 mg/L (Less than 10); Calcium 6.9 mg/dL (8.6-10.3); Carbon Dioxide 22 mEq/L (23-29); Chloride 94 mEq/L (98-107); Glucose 70 mg/dL (70-105); Osmolality,Calculated 258 (280-300); Potassium 3.9 mEq/L (3.5-5.1); Sodium 124 mEq/L (136-145); eGFR For African Americans > 60 (> 60); eGFR For Non-African Americans 56 (> 60)
[2022-03-05] MEDS: *HR* Heparin 5,000 UNIT/ML VIAL SQ SCH ×2 (05:39→17:07)
[2022-03-05] MEDS: Ondansetron 4 MG/2 ML VIAL IVP PRN (08:56)
[2022-03-05] MEDS: Acetaminophen 325 MG TABLET PO PRN ×2 (08:56→17:07)
[2022-03-05] MEDS: DilTIAZem CD (24hr) 120 MG CAP.ER.24H PO SCH (09:01)
[2022-03-05] MEDS: rifAMPin 150 MG CAPSULE PO SCH (09:01)
[2022-03-05] MEDS: FLUoxetine 20 MG CAPSULE PO SCH (09:02)
[2022-03-05] MEDS: ETHAMBUTOL HCL 100 MG PO SCH (09:03)
[2022-03-05] MEDS: Cholecalciferol (D-3) 1,000 UNIT (25MCG) TABLET PO SCH (09:03)
[2022-03-05] MEDS: Pyridoxine (B-6) 50 MG TABLET PO SCH (09:03)
[2022-03-05] MEDS: Folic Acid 1 MG TABLET PO SCH (09:03)
[2022-03-05] MEDS: Aspirin Enteric Coated 81 MG Tablet PO SCH (09:03)
[2022-03-05] MEDS: lisinopriL 10 MG TABLET PO SCH (09:04)
[2022-03-05] MEDS: Cyanocobalamin (B-12) 1,000 MCG TABLET PO SCH (09:05)
[2022-03-05] MEDS: polyethylene glycoL 3350 17 GM POWD.PACK PO SCH (09:05)
[2022-03-05] MEDS: Loratadine 10 MG TABLET PO SCH (09:05)
[2022-03-05] MEDS: Ipratropium/Albuterol Neb 3 ML IH PRN (10:17)
[2022-03-05 15:19] LABS: Thyroid Stimulating Hormone 5.115 mcIU/mL (0.340-5.600)
[2022-03-05] MEDS: Azithromycin 250 MG TABLET PO SCH (17:07)
[2022-03-05] MEDS: Benzonatate 100 MG CAPSULE PO PRN (17:07)
[2022-03-05] MEDS: QUEtiapine Fumarate 25 MG TABLET PO SCH (20:40)
[2022-03-06 01:38] LABS: Basophils % 0.5 %; Eosinophils # 0.2 K/mcL (0.0-0.6); Eosinophils % 5.5 %; Hematocrit 24.2 % (35.3-44.9); Hemoglobin 8.1 g/dL (11.5-15.4); Immature Granulocytes % 1.8 % (0-4); Lymphocytes # 0.4 K/mcL (0.6-4.6); Lymphocytes % 9.2 %; Mean Corpuscular HGB Conc 33.5 g/dL (31.6-35.5); Mean Corpuscular Hemoglobin 27.3 pg (28.0-33.3); Mean Corpuscular Volume 81.5 fL (83.0-100.0); Mean Platelet Volume 9.9 fL (9.4-12.4); Monocytes # 0.4 K/mcL (0.0-1.3); Monocytes % 9.4 %; Neutrophils # 2.8 K/mcL (1.6-8.9); Platelet Count 149 K/mcL (140-400); Red Blood Count 2.97 M/mcL (3.82-4.97); Red Cell Distribution Width 18.4 % (11.5-14.5); Segmented Neutrophils % 73.6 %; White Blood Count 3.8 K/mcL (4.3-11.1)
[2022-03-06 02:02] LABS: BUN/Creatinine Ratio 17 (6-26); Blood Urea Nitrogen 19 mg/dL (6-20); Carbon Dioxide 22 mEq/L (23-29); Chloride 95 mEq/L (98-107); Glucose 64 mg/dL (70-105); Osmolality,Calculated 262 (280-300); Potassium 3.8 mEq/L (3.5-5.1); Sodium 126 mEq/L (136-145); eGFR For African Americans > 60 (> 60); eGFR For Non-African Americans 52 (> 60)
[2022-03-06] MEDS: Ipratropium/Albuterol Neb 3 ML IH PRN (02:43)
[2022-03-06] MEDS ORDERED: ALPRAZolam 1 MG TABLET PO ONE (06:01)
[2022-03-06] MEDS ORDERED: Furosemide 20 MG/2 ML VIAL IVP ONE (06:02)
[2022-03-06] MEDS: *HR* Heparin 5,000 UNIT/ML VIAL SQ SCH ×2 (06:16→17:55)
[2022-03-06] MEDS: Acetaminophen 325 MG TABLET PO PRN (06:16)
[2022-03-06 06:25] LABS: Adenovirus Not Detected (Not Detect); Coronavirus 229E Not Detected (Not Detect); Coronavirus HKU1 Not Detected (Not Detect); Coronavirus NL63 Not Detected (Not Detect); Coronavirus OC43 Not Detected (Not Detect); Human Metapneumovirus Not Detected (Not Detect); Human Rhinovirus/Enterovirus DETECTED (Not Detect); Influenza A Subtype 2009 H1 Not Detected (Not Detect); SARS-CoV-2 Not Detected (Not Detect)
[2022-03-06 06:26] LABS: Bordetella Pertussis Not Detected (Not Detect); Chlamydophila pneumoniae Not Detected (Not Detect); Influenza B Not Detected (Not Detect); Mycoplasma pneumoniae Not Detected (Not Detect); Parainfluenza Virus 1 Not Detected (Not Detect); Parainfluenza Virus 2 Not Detected (Not Detect); Parainfluenza Virus 3 Not Detected (Not Detect); Parainfluenza Virus 4 Not Detected (Not Detect); Respiratory Syncytial Virus Not Detected (Not Detect)
[2022-03-06] MEDS: *HR* Dextrose 50 % in Water (Syg) 50 ML SYRINGE IVP PRN ×3 (07:29→20:00)
[2022-03-06 07:51] LABS: VBG HCO3 22 mEq/L (21-27); VBG PCO2 38 mmHg (41-51); VBG PH 7.38 pH Units (7.32-7.42); VBG PO2 166 mmHg (25-50)
[2022-03-06] MEDS: lisinopriL 10 MG TABLET PO SCH (09:00)
[2022-03-06 11:08] LABS: ABG Base Excess -2 mEq/L (-2 to 3); ABG HCO3 22 mEq/L (21-27); ABG Oxygen Saturation 95 % (95-98); ABG PCO2 35 mmHg (35-45); ABG PH 7.41 pH Units (7.32-7.45); ABG PO2 73 mmHg (85-104); ABG TCO2 23 mEq/L (20-26)
[2022-03-06] MEDS: Ondansetron 4 MG/2 ML VIAL IVP PRN (11:37)
[2022-03-06] MEDS: Loratadine 10 MG TABLET PO SCH (11:51)
[2022-03-06] MEDS: Aspirin Enteric Coated 81 MG Tablet PO SCH (11:51)
[2022-03-06] MEDS: FLUoxetine 20 MG CAPSULE PO SCH (11:52)
[2022-03-06] MEDS: Cholecalciferol (D-3) 1,000 UNIT (25MCG) TABLET PO SCH (11:53)
[2022-03-06] MEDS: Pyridoxine (B-6) 50 MG TABLET PO SCH (11:53)
[2022-03-06] MEDS: Cyanocobalamin (B-12) 1,000 MCG TABLET PO SCH (11:53)
[2022-03-06] MEDS: Folic Acid 1 MG TABLET PO SCH (11:55)
[2022-03-06] MEDS: polyethylene glycoL 3350 17 GM POWD.PACK PO SCH (11:57)
[2022-03-06] MEDS: ETHAMBUTOL HCL 100 MG PO SCH (11:57)
[2022-03-06] MEDS: rifAMPin 150 MG CAPSULE PO SCH (11:59)
[2022-03-06] MEDS: DilTIAZem CD (24hr) 120 MG CAP.ER.24H PO SCH (11:59)
[2022-03-06] MEDS ORDERED: ALPRAZolam 0.25 MG TABLET PO ONE (13:11)
[2022-03-06] MEDS ORDERED: Iopamidol - 370 500 ML MLS IVP ONE (13:58)
[2022-03-06] MEDS: Megestrol Acetate 400 MG/10 ML UDC PO SCH (16:48)
[2022-03-06] MEDS: Azithromycin 250 MG TABLET PO SCH (17:54)
[2022-03-06] MEDS: Ipratropium Neb 0.5 MG NEBULIZER IH SCH ×3 (17:59→21:35)
[2022-03-06 18:34] LABS: ABG Base Excess -4 mEq/L (-2 to 3); ABG HCO3 23 mEq/L (21-27); ABG Oxygen Saturation 94 % (95-98); ABG PCO2 48 mmHg (35-45); ABG PH 7.29 pH Units (7.32-7.45); ABG PO2 81 mmHg (85-104); ABG TCO2 24 mEq/L (20-26); Blood Gas Modality CPAP/PS
[2022-03-06] MEDS ORDERED: *HR* LORazepam 2 MG/ML VIAL IVP ONE ×2 (19:47→20:17)
[2022-03-06] MEDS: QUEtiapine Fumarate 25 MG TABLET PO SCH ×2 (20:30→20:39)
[2022-03-06 22:17] LABS: ABG Base Excess -3 mEq/L (-2 to 3); ABG HCO3 25 mEq/L (21-27); ABG Oxygen Saturation 92 % (95-98); ABG PCO2 57 mmHg (35-45); ABG PH 7.24 pH Units (7.32-7.45); ABG PO2 75 mmHg (85-104); ABG TCO2 26 mEq/L (20-26); Blood Gas Modality NIV
[2022-03-06] MEDS: Dexmedetomidine HCl 400 MCG/100 ML MLS IVC SCH (22:26)
[2022-03-07 01:35] LABS: ABG Base Excess -3 mEq/L (-2 to 3); ABG HCO3 24 mEq/L (21-27); ABG Oxygen Saturation 91 % (95-98); ABG PCO2 50 mmHg (35-45); ABG PH 7.28 pH Units (7.32-7.45); ABG PO2 70 mmHg (85-104); ABG TCO2 25 mEq/L (20-26); Blood Gas Modality NIV
[2022-03-07 03:03] LABS: Basophils % 0.3 %; Eosinophils % 0.5 %; Hematocrit 22.8 % (35.3-44.9); Hemoglobin 7.5 g/dL (11.5-15.4); Lymphocytes # 0.4 K/mcL (0.6-4.6); Lymphocytes % 4.8 %; Mean Corpuscular HGB Conc 32.9 g/dL (31.6-35.5); Mean Corpuscular Hemoglobin 27.2 pg (28.0-33.3); Mean Corpuscular Volume 82.6 fL (83.0-100.0); Mean Platelet Volume 9.9 fL (9.4-12.4); Monocytes # 0.6 K/mcL (0.0-1.3); Platelet Count 174 K/mcL (140-400); Red Blood Count 2.76 M/mcL (3.82-4.97); Red Cell Distribution Width 18.5 % (11.5-14.5); Segmented Neutrophils % 85.4 %
[2022-03-07 03:09] LABS: Neutrophils # 6.6 K/mcL (1.6-8.9); White Blood Count 7.7 K/mcL (4.3-11.1)
[2022-03-07 03:26] LABS: Albumin 2.1 g/dL (3.5-5.7); Albumin/Globulin Ratio 0.8 (1.1-2.2); Bilirubin,Total 2.5 mg/dL (0.3-1.0); Calcium 6.8 mg/dL (8.6-10.3); Globulin 2.6 g/dL (2.4-3.5); Potassium 4.2 mEq/L (3.5-5.1); Total Protein 4.7 g/dL (6.4-8.9)
[2022-03-07] MEDS: *HR* Dextrose 50 % in Water (Syg) 50 ML SYRINGE IVP PRN ×2 (03:31→09:13)
[2022-03-07] MEDS: Ipratropium Neb 0.5 MG NEBULIZER IH SCH ×4 (03:34→19:46)
[2022-03-07 03:40] LABS: Anisocytosis 1+ (Not Present); Hypochromasia Present (Not Present); Platelet Estimate Normal (Normal)
[2022-03-07] MEDS: *HR* Heparin 5,000 UNIT/ML VIAL SQ SCH ×2 (05:14→17:39)
[2022-03-07] MEDS ORDERED: ALPRAZolam 0.25 MG TABLET PO PRN (07:36)
[2022-03-07] MEDS: FentaNYL (PF) 1,000 MCG/100 ML IV.SOLN IVC SCH (07:59)
[2022-03-07] MEDS: Midazolam HCl 50 MG/50 ML IV.SOLN IVC SCH (07:59)
[2022-03-07] MEDS: Cefepime HCl 2,000 MG in 0.9 % Sodium Chloride 10 ML IVP SCH ×2 (08:00→15:56)
[2022-03-07] MEDS: Pyridoxine (B-6) 50 MG TABLET PO SCH (08:12)
[2022-03-07] MEDS: Aspirin Enteric Coated 81 MG Tablet PO SCH (08:14)
[2022-03-07] MEDS: Loratadine 10 MG TABLET PO SCH (08:14)
[2022-03-07] MEDS: Cholecalciferol (D-3) 1,000 UNIT (25MCG) TABLET PO SCH (08:14)
[2022-03-07] MEDS: rifAMPin 150 MG CAPSULE PO SCH (08:15)
[2022-03-07] MEDS: Cyanocobalamin (B-12) 1,000 MCG TABLET PO SCH (08:15)
[2022-03-07] MEDS: Folic Acid 1 MG TABLET PO SCH (08:16)
[2022-03-07] MEDS: FLUoxetine 20 MG CAPSULE PO SCH (08:17)
[2022-03-07] MEDS: lisinopriL 10 MG TABLET PO SCH (08:18)
[2022-03-07] MEDS: polyethylene glycoL 3350 17 GM POWD.PACK PO SCH (08:18)
[2022-03-07] MEDS: Megestrol Acetate 400 MG/10 ML UDC PO SCH (08:18)
[2022-03-07] MEDS: 0.9 % Sodium Chloride 1,000 ML ONE ×2 (08:26→17:57)
[2022-03-07 08:45] LABS: ABG Base Excess -4 mEq/L (-2 to 3); ABG HCO3 25 mEq/L (21-27); ABG Oxygen Saturation 98 % (95-98); ABG PCO2 67 mmHg (35-45); ABG PH 7.18 pH Units (7.32-7.45); ABG PO2 124 mmHg (85-104); ABG TCO2 27 mEq/L (20-26); Blood Gas VT 350 cc
[2022-03-07 11:02] LABS: ABG Base Excess -4 mEq/L (-2 to 3); ABG HCO3 24 mEq/L (21-27); ABG Oxygen Saturation 94 % (95-98); ABG PCO2 53 mmHg (35-45); ABG PH 7.26 pH Units (7.32-7.45); ABG PO2 82 mmHg (85-104); ABG TCO2 25 mEq/L (20-26); Blood Gas VT 350 cc
[2022-03-07] MEDS: Pantoprazole 40 MG VIAL IVP SCH (11:03)
[2022-03-07] MEDS ORDERED: Albumin 25% 25gram/100mL 25 GM/100 ML IV.SOLN IVPB ONE (11:09)
[2022-03-07] MEDS ORDERED: 0.9 % Sodium Chloride 250 ML IVC ONE (12:39)
[2022-03-07] MEDS: D5% in 0.9% NACL 1,000 ML IVC SCH (13:20)
[2022-03-07] MEDS: DilTIAZem CD (24hr) 120 MG CAP.ER.24H PO SCH (13:26)
[2022-03-07] MEDS: ETHAMBUTOL HCL 100 MG PO SCH (13:27)
[2022-03-07] MEDS ORDERED: *HR* Rocuronium Bromide 50 MG/5 ML VIAL IVP ONE (14:10)
[2022-03-07] MEDS ORDERED: *HR* Etomidate 20 MG/10 ML AMPUL IVP ONE (14:10)
[2022-03-07 15:27] LABS: Basophils % 0.1 %; Eosinophils # 0.1 K/mcL (0.0-0.6); Eosinophils % 0.8 %; Hematocrit 22.8 % (35.3-44.9); Hemoglobin 7.3 g/dL (11.5-15.4); Immature Granulocytes % 0.9 % (0-4); Lymphocytes # 0.7 K/mcL (0.6-4.6); Lymphocytes % 7.6 %; Mean Corpuscular Hemoglobin 27.5 pg (28.0-33.3); Mean Platelet Volume 9.3 fL (9.4-12.4); Monocytes # 0.8 K/mcL (0.0-1.3); Monocytes % 8.9 %; Platelet Count 140 K/mcL (140-400); Red Blood Count 2.65 M/mcL (3.82-4.97); Red Cell Distribution Width 18.7 % (11.5-14.5); Segmented Neutrophils % 81.7 %; White Blood Count 8.6 K/mcL (4.3-11.1)
[2022-03-07 15:47] LABS: Albumin 2.6 g/dL (3.5-5.7); Bilirubin,Total 2.4 mg/dL (0.3-1.0); Calcium 7.2 mg/dL (8.6-10.3); Globulin 2.7 g/dL (2.4-3.5); Potassium 4.2 mEq/L (3.5-5.1); Total Protein 5.3 g/dL (6.4-8.9)
[2022-03-07 15:54] LABS: Hypochromasia Present (Not Present)
[2022-03-07] MEDS: Chlorhexidine Rinse 15 ML MOUTHWASH MM SCH ×2 (15:56→20:15)
[2022-03-07] MEDS: Azithromycin 250 MG TABLET PO SCH (15:57)
[2022-03-07] MEDS ORDERED: 0.9 % Sodium Chloride 500 ML IVC ONE (17:03)
[2022-03-07] MEDS: QUEtiapine Fumarate 25 MG TABLET PO SCH (20:15)
[2022-03-08] MEDS: FentaNYL (PF) 1,000 MCG/100 ML IV.SOLN IVC SCH ×3 (01:00→21:20)
[2022-03-08] MEDS: *HR* Dextrose 50 % in Water (Syg) 50 ML SYRINGE IVP PRN ×2 (03:48→07:30)
[2022-03-08] MEDS: D5% in 0.9% NACL 1,000 ML IVC SCH ×2 (03:48→15:25)
[2022-03-08] MEDS: Midazolam HCl 50 MG/50 ML IV.SOLN IVC SCH ×2 (03:51→16:12)
[2022-03-08] MEDS: Ipratropium Neb 0.5 MG NEBULIZER IH SCH ×4 (03:55→20:36)
[2022-03-08 04:16] LABS: ABG Base Excess -6 mEq/L (-2 to 3); ABG HCO3 21 mEq/L (21-27); ABG Oxygen Saturation 87 % (95-98); ABG PCO2 54 mmHg (35-45); ABG PO2 65 mmHg (85-104); ABG TCO2 23 mEq/L (20-26); Blood Gas Modality ASSIST CONTROL; Blood Gas VT 350 cc
[2022-03-08 04:30] LABS: Hematocrit 20.3 % (35.3-44.9); Hemoglobin 6.4 g/dL (11.5-15.4); Mean Corpuscular HGB Conc 31.5 g/dL (31.6-35.5); Mean Corpuscular Hemoglobin 27.4 pg (28.0-33.3); Mean Corpuscular Volume 86.8 fL (83.0-100.0); Mean Platelet Volume 9.7 fL (9.4-12.4); Platelet Count 114 K/mcL (140-400); Red Blood Count 2.34 M/mcL (3.82-4.97); Red Cell Distribution Width 18.8 % (11.5-14.5); White Blood Count 8.1 K/mcL (4.3-11.1)
[2022-03-08 04:37] LABS: Albumin 2.1 g/dL (3.5-5.7); Albumin/Globulin Ratio 0.8 (1.1-2.2); Bilirubin,Total 1.9 mg/dL (0.3-1.0); Calcium 6.5 mg/dL (8.6-10.3); Globulin 2.6 g/dL (2.4-3.5); Magnesium 2.2 mg/dL (1.6-2.6); Phosphorous 4.6 mg/dL (2.7-4.5); Potassium 3.9 mEq/L (3.5-5.1); Total Protein 4.7 g/dL (6.4-8.9)
[2022-03-08 04:50] LABS: VBG Ionized Calcium 0.99 mmol/L (1.15-1.35)
[2022-03-08 04:51] LABS: Eosinophils # 0.3 K/mcL (0.0-0.6); Lymphocytes # 1.1 K/mcL (0.6-4.6); Monocytes # 0.2 K/mcL (0.0-1.3); Neutrophils # 6.5 K/mcL (1.6-8.9); Platelet Estimate Decreased (Normal)
[2022-03-08] MEDS: Cefepime HCl 1,000 MG in 0.9 % Sodium Chloride 10 ML IVP SCH ×2 (05:46→15:27)
[2022-03-08] MEDS: *HR* Heparin 5,000 UNIT/ML VIAL SQ SCH ×2 (05:48→17:21)
[2022-03-08] MEDS ORDERED: Calcium Gluconate 1gm/50mL 1 GM/50 ML BAG IVPB STA (07:18)
[2022-03-08] MEDS: Chlorhexidine Rinse 15 ML MOUTHWASH MM SCH ×2 (08:23→19:27)
[2022-03-08] MEDS: D10% in Water 500 ML IVC SCH ×2 (08:23→18:00)
[2022-03-08] MEDS: Norepinephrine 4 MG/254 ML IV.SOLN IVC SCH ×3 (08:33→23:52)
[2022-03-08] MEDS: polyethylene glycoL 3350 17 GM POWD.PACK PO SCH (09:22)
[2022-03-08] MEDS: rifAMPin 150 MG CAPSULE PO SCH (09:22)
[2022-03-08] MEDS: FLUoxetine 20 MG CAPSULE PO SCH (09:22)
[2022-03-08] MEDS: Cholecalciferol (D-3) 1,000 UNIT (25MCG) TABLET PO SCH (09:22)
[2022-03-08] MEDS: Pyridoxine (B-6) 50 MG TABLET PO SCH (09:23)
[2022-03-08] MEDS: Loratadine 10 MG TABLET PO SCH (09:23)
[2022-03-08] MEDS: Cyanocobalamin (B-12) 1,000 MCG TABLET PO SCH (09:23)
[2022-03-08] MEDS: Folic Acid 1 MG TABLET PO SCH (09:23)
[2022-03-08] MEDS: Megestrol Acetate 400 MG/10 ML UDC PO SCH (09:24)
[2022-03-08] MEDS: DilTIAZem CD (24hr) 120 MG CAP.ER.24H PO SCH (09:24)
[2022-03-08] MEDS: Aspirin Enteric Coated 81 MG Tablet PO SCH (09:24)
[2022-03-08] MEDS: ETHAMBUTOL HCL 100 MG PO SCH (09:24)
[2022-03-08] MEDS: Pantoprazole 40 MG VIAL IVP SCH (09:25)
[2022-03-08] MEDS ORDERED: Artificial Tears SOLN 15 ML BOTTLE BOTH EYES PRN (10:46)
[2022-03-08] MEDS ORDERED: DilTIAZem CD (24hr) 120 MG CAP.ER.24H PO SCH (10:54)
[2022-03-08] MEDS: Artificial Tears SOLN 15 ML BOTTLE BOTH EYES SCH ×4 (11:20→23:14)
[2022-03-08] MEDS: lisinopriL 10 MG TABLET PO SCH (11:28)
[2022-03-08 12:09] LABS: Sodium, Urine 14.6 mEq/L
[2022-03-08 13:28] LABS: VBG Ionized Calcium 1.02 mmol/L (1.15-1.35)
[2022-03-08 13:46] LABS: Hematocrit 26.9 % (35.3-44.9); Hemoglobin 8.8 g/dL (11.5-15.4)
[2022-03-08 14:02] LABS: ABG Base Excess -9 mEq/L (-2 to 3); ABG HCO3 20 mEq/L (21-27); ABG Oxygen Saturation 94 % (95-98); ABG PCO2 58 mmHg (35-45); ABG PH 7.15 pH Units (7.32-7.45); ABG PO2 92 mmHg (85-104); ABG TCO2 22 mEq/L (20-26); Blood Gas Modality ASSIST CONTROL; Blood Gas VT 350 cc
[2022-03-08] MEDS ORDERED: *HR* Dextrose 50 % in Water (Syg) 50 ML SYRINGE IVP PRN (14:07)
[2022-03-08] MEDS ORDERED: D5% in Water 1,000 ML IVC PRN (14:07)
[2022-03-08] MEDS ORDERED: Dextrose Gel 15 GM/37.5 ML TUBE PO PRN ×2 (14:07)
[2022-03-08] MEDS: Calcium Gluconate 1gm/50mL 1 GM/50 ML BAG IVPB SCH ×2 (14:28→15:24)
[2022-03-08] MEDS: Insulin LISPRO 300 UNITS/3 ML VIAL SUBQ SCH ×3 (15:25→23:14)
[2022-03-08] MEDS: Azithromycin 250 MG TABLET PO SCH (15:27)
[2022-03-08 18:04] LABS: ABG Base Excess -9 mEq/L (-2 to 3); ABG HCO3 20 mEq/L (21-27); ABG Oxygen Saturation 94 % (95-98); ABG PCO2 55 mmHg (35-45); ABG PH 7.16 pH Units (7.32-7.45); ABG PO2 88 mmHg (85-104); ABG TCO2 21 mEq/L (20-26); Blood Gas Modality ASSIST CONTROL; Blood Gas VT 400 cc
[2022-03-08] MEDS: QUEtiapine Fumarate 25 MG TABLET PO SCH (19:27)
[2022-03-08] MEDS: Sodium Bicarbonate 150 MEQ in D5% in Water 1,000 ML IVC SCH (19:27)
[2022-03-08] MEDS: Docusate Oral Soln 100 MG/10 ML UDC PO SCH (21:38)
[2022-03-08] MEDS: Dexmedetomidine HCl 400 MCG/100 ML MLS IVC SCH ×2 (21:39→21:40)
[2022-03-08 21:42] LABS: ABG Base Excess -8 mEq/L (-2 to 3); ABG HCO3 19 mEq/L (21-27); ABG Oxygen Saturation 89 % (95-98); ABG PCO2 44 mmHg (35-45); ABG PH 7.24 pH Units (7.32-7.45); ABG PO2 67 mmHg (85-104); ABG TCO2 20 mEq/L (20-26); Blood Gas Modality ASSIST CONTROL; Blood Gas VT 400 cc
[2022-03-09] MEDS: Artificial Tears SOLN 15 ML BOTTLE BOTH EYES SCH ×2 (03:27→07:33)
[2022-03-09] MEDS: Cefepime HCl 1,000 MG in 0.9 % Sodium Chloride 10 ML IVP SCH (03:27)
[2022-03-09] MEDS: Insulin LISPRO 300 UNITS/3 ML VIAL SUBQ SCH ×2 (03:28→07:52)
[2022-03-09 03:43] LABS: VBG Ionized Calcium 1.08 mmol/L (1.15-1.35)
[2022-03-09 03:54] LABS: Red Blood Count 2.98 M/mcL (3.82-4.97)
[2022-03-09 03:56] LABS: Hematocrit 25.6 % (35.3-44.9); Hemoglobin 8.4 g/dL (11.5-15.4); Immature Platelets 3.4 % (1.1-6.1); Mean Corpuscular HGB Conc 32.8 g/dL (31.6-35.5); Mean Corpuscular Hemoglobin 28.2 pg (28.0-33.3); Mean Corpuscular Volume 85.9 fL (83.0-100.0); Mean Platelet Volume 9.7 fL (9.4-12.4); Platelet Count 102 K/mcL (140-400); Red Cell Distribution Width 17.7 % (11.5-14.5); White Blood Count 14.4 K/mcL (4.3-11.1)
[2022-03-09] MEDS: Ipratropium Neb 0.5 MG NEBULIZER IH SCH ×2 (03:58→10:31)
[2022-03-09 03:59] LABS: Albumin 1.8 g/dL (3.5-5.7); Albumin/Globulin Ratio 0.8 (1.1-2.2); Bilirubin,Total 3.5 mg/dL (0.3-1.0); Calcium 7.1 mg/dL (8.6-10.3); Globulin 2.4 g/dL (2.4-3.5); Magnesium 2.1 mg/dL (1.6-2.6); Potassium 3.4 mEq/L (3.5-5.1); Total Protein 4.2 g/dL (6.4-8.9)
[2022-03-09 04:19] LABS: ABG Base Excess -8 mEq/L (-2 to 3); ABG HCO3 20 mEq/L (21-27); ABG Oxygen Saturation 91 % (95-98); ABG PCO2 52 mmHg (35-45); ABG PO2 74 mmHg (85-104); ABG TCO2 22 mEq/L (20-26); Blood Gas Modality ASSIST CONTROL; Blood Gas VT 400 cc
[2022-03-09] MEDS: Midazolam HCl 50 MG/50 ML IV.SOLN IVC SCH (04:30)
[2022-03-09] MEDS: D5% in 0.9% NACL 1,000 ML IVC SCH (05:27)
[2022-03-09] MEDS: D10% in Water 500 ML IVC SCH (05:42)
[2022-03-09 05:54] LABS: Eosinophils # 1.3 K/mcL (0.0-0.6); Lymphocytes # 0.9 K/mcL (0.6-4.6); Neutrophils # 12.2 K/mcL (1.6-8.9)
[2022-03-09 05:55] LABS: Anisocytosis 1+ (Not Present); Platelet Estimate Decreased (Normal); Poikilocytosis 1+ (Not Present)
[2022-03-09] MEDS: *HR* Heparin 5,000 UNIT/ML VIAL SQ SCH (06:10)
[2022-03-09] MEDS ORDERED: Potassium Chloride Elixir 20 MEQ/15 ML UDC GTUBE ONE (06:16)
[2022-03-09] MEDS: Calcium Gluconate 1gm/50mL 1 GM/50 ML BAG IVPB SCH ×2 (06:39→07:30)
[2022-03-09] MEDS: FentaNYL (PF) 1,000 MCG/100 ML IV.SOLN IVC SCH (07:23)
[2022-03-09] MEDS: Cholecalciferol (D-3) 1,000 UNIT (25MCG) TABLET PO SCH (07:31)
[2022-03-09] MEDS: polyethylene glycoL 3350 17 GM POWD.PACK PO SCH (07:31)
[2022-03-09] MEDS: Cyanocobalamin (B-12) 1,000 MCG TABLET PO SCH (07:31)
[2022-03-09] MEDS: Folic Acid 1 MG TABLET PO SCH (07:31)
[2022-03-09] MEDS: Pyridoxine (B-6) 50 MG TABLET PO SCH (07:31)
[2022-03-09] MEDS: FLUoxetine 20 MG CAPSULE PO SCH (07:31)
[2022-03-09] MEDS: Loratadine 10 MG TABLET PO SCH (07:32)
[2022-03-09] MEDS: rifAMPin 150 MG CAPSULE PO SCH (07:32)
[2022-03-09] MEDS: Pantoprazole 40 MG VIAL IVP SCH (07:32)
[2022-03-09] MEDS: Megestrol Acetate 400 MG/10 ML UDC PO SCH (07:33)
[2022-03-09] MEDS: Docusate Oral Soln 100 MG/10 ML UDC PO SCH (07:33)
[2022-03-09] MEDS: Chlorhexidine Rinse 15 ML MOUTHWASH MM SCH (07:33)
[2022-03-09] MEDS: ETHAMBUTOL HCL 100 MG PO SCH (07:35)
[2022-03-09] MEDS: Norepinephrine 4 MG/254 ML IV.SOLN IVC SCH (08:13)
[2022-03-09 08:34] VITALS: TEMP 97.6
[2022-03-09] MEDS ORDERED: Aspirin 81 MG TAB.CHEW PO SCH (09:00)
[2022-03-09] MEDS: Sodium Bicarbonate 150 MEQ in D5% in Water 1,000 ML IVC SCH (09:59)
[2022-03-09] MEDS ORDERED: Albumin Human 5% 12.5 GM/250 ML IV.SOLN ONE ×2 (10:24→10:25)
[2022-03-09] MEDS ORDERED: Phenylephrine 20 MG in 0.9 % Sodium Chloride 250 ML IVC SCH (10:30)
[2022-03-09] MEDS: Albumin Human 5% 12.5 GM/250 ML IV.SOLN IVC SCH ×2 (10:35→11:18)
[2022-03-09] MEDS ORDERED: *HR* LORazepam 2 MG/ML VIAL IVP PRN (12:06)
[2022-03-09] MEDS ORDERED: Morphine Sulfate Oral CONC 10 MG/0.5 ML ORAL.SYG SL PRN (12:08)
[2022-03-09] MEDS ORDERED: Atropine Sulfate 1% 40 DROP/2 ML BOTTLE SL PRN (12:08)
[2022-03-09 12:40] VITALS: BP 101/49; PULSE 129; O2SAT 100
== END 2022-03-09 14:40 | disposition expired | DRG 871 ==
LOC: EMEROOARM 11:15 → 3NENU 11:15 → SUATTDRO 16:48 → 3NENU 17:51 → SUATTDRO 02-24 18:00 → 2NNU 02-25 12:10 → 2NENU 03-04 08:48 → ICNU 03-06 19:41
PROVIDERS: ADMIT Pharmacist; ATTEND Family Medicine